=== PATIENT | female | born 1955 | race Caucasian/White ===

== ENCOUNTER 2020-02-02 10:15 | Outpatient (CLI) | payer BC, SELFPAY ==
--- NOTE | 2020-02-02 10:34 | FL_ITS ---
WS: [id number] FL barium swallow modifd [id number] REASON FOR EXAM: Oral dysphagia FLUOROSCOPY TIME: 4.8 minutes FINDINGS: Fluoroscopy was performed for speech pathology please see their workup for details. FL/FL barium swallow modifd [id number] IMPRESSION: Fluoroscopy was performed for speech pathology.
--- NOTE | 2020-02-02 10:34 | CT_ITS ---
WS: [id number] CT neck w con* [id number] REASON FOR EXAM: DYSPHAGIA transit for the past couple years. IV CONTRAST ADMINISTERED: Omnipaque 300 75 mm TOTAL EXAM DLP: 377.[address] scans at [facility] use at least one of these dose optimization techniques: automat ed exposure control; mA and/or kV adjustment per patient size (includes targeted exams where dose is matched to clinical indication); or iterative reconstruction. FINDINGS: Along the posterior C6 level on the right is a cystic mass which is smooth in outline seen in the subcutaneous area measured 1.5 x 1.44 cm. The paranasal sinuses are all normal. The parotid glands were normal. As well as the submandibular glands The tongue and nasopharynx appear to be normal. The vallecula and ventricles were normal. There is numerous artifacts from the teeth inhibiting of visualization. The carotid canals were normal as well as a jugular foramina. There was no airway obstructing lesion The subglottic area was normal as well as the supraglottic area. The cervical spine show no abnormalities. The precervical area show no infiltrating masses. The lymph nodes were normal bilaterally. The thyroid gland was normal in size with no masses. The trachea and pretracheal area were normal. . IMPRESSION: No definite lesions of the cervical region airways to produce dysplasia are noted. There is a prominent cystic mass along the posterior aspect C6 level on the right most likely a large sebaceous cyst.
[2020-02-02 11:47] LABS: Blood Urea Nitrogen 14 mg/dL (8-23)
[2020-02-02] MEDS: iohexol 300 mg/mL 100 mL Btl IV (12:06)
== END 2020-02-02 10:16 | disposition home or self-care (01) ==
PROVIDERS: PCP Family Medicine; Visit Provider Specialist
DX: R13.19 Other dysphagia (principal)
CPT/HCPCS: 36415; 70491; 74230; 82565; 84520; 92611

== ENCOUNTER 2021-04-26 10:45 | Outpatient (CLI) | payer OTHER, SELFPAY ==
--- NOTE | 2021-04-26 10:52 | MM_ITS ---
WS: [id number] BILATERAL DIGITAL SCREENING MAMMOGRAPHY WITH CAD CLINICAL INFORMATION: SCREENING HISTORY: Screening mammogram. No current complaints. COMPARISON: None. TECHNIQUE: Bilateral CC and MLO views. FINDINGS: Scattered fibroglandular densities bilaterally. Punctate and lucent centered calcifications. 1.5 cm a symmetric density upper right breast posterior depth. This is best seen on the MLO view. Recommend sp ot compression views and ultrasound for further evaluation. Unremarkable left breast. MM/[place] [id number] IMPRESSION: BI-RADS: 0-Incomplete: Need additional imaging evaluation FOLLOW UP: Need Additional Imaging RECOMMEND RIGHT DIAGNOSTIC MAMMOGRAPHY AND ULTRASOUND IN FURTHER EVALUATION.
--- NOTE | 2021-04-26 11:39 | CT_ITS ---
WS: [id number] LDCT LUNG CANCER SCREENING TECHNIQUE: Noncontrast CT of the chest with coronal and sagittal reformatted images. CLINICAL INFORMATION: NICOTINE DEPENDENCE,CIGARETTES COMPARISON: None. DLP: 55.38 mGy.cm DIvol: 1.[address] scans at [facility] use at least one of these dose optimization techniques: automat ed exposure control; mA and/or kV adjustment per patient size (includes targeted exams where dose is matched to clinical indication); or iterative reconstruction. FINDINGS: Moderate chronic emphysematous changes. Paraseptal emphysema. Cavitary spiculated lesion with bronchi ectasis in the superior segment left lower lobe measuring 2.0 x 0.9 x 1.0 CM. This abuts the pleura w ith associated pleural thickening. Additional small satellite lesion measuring 9.0 mm. Recommend furt her evaluation with PET/CT. Tiny 2.7 mm subpleural nodule left lower lobe. Additional noncalcified 2.8 mm nodule right upper lobe . Small subpleural nodule right lower lobe measuring 6 mm. Normal caliber thoracic aorta. Coronary calcification. No mediastinal or hilar lymphadenopathy. Adren al glands are normal. Left hepatic cyst measuring [address]/CT lung screening [id number] IMPRESSION: LUNG-RADS: 4B-Suspicious FOLLOW UP: PET/CT recommended
== END 2021-04-26 10:46 | disposition home or self-care (01) ==
PROVIDERS: PCP Nurse Practitioner Family; Visit Provider Nurse Practitioner Family
DX: Z12.31 Encounter for screening mammogram for malignant neoplasm of breast (principal); Z12.2 Encounter for screening for malignant neoplasm of respiratory organs; F17.210 Nicotine dependence, cigarettes, uncomplicated
CPT/HCPCS: 71271; 77067

== ENCOUNTER → 2021-06-10 15:36 | Outpatient (BNVA) | payer OTHER, SELFPAY | PROVIDERS: PCP Nurse Practitioner Family; Visit Provider Surgery | DX: Z20.822 Contact with and (suspected) exposure to COVID-19 (principal) | CPT/HCPCS: 87635 ==

== ENCOUNTER 2021-06-15 08:05 | Day surgery (SDC) | payer OTHER, SELFPAY ==
--- NOTE | 2021-06-15 08:22 | ANES.PREANE2 ---
Pre-Anesthetic Assessment Pre-Anesthetic Assessment: Height/Weight: Height 1.55 m Weight 41.73 kg Proposed Procedure: Operation Date: 06/15/21 09:30 Proposed Procedures p Colonoscopy 88163 z12.11(Not Applicable) - Edison Blood MD Was Beta Zay taken within 24 hours: N/A Was Clonidine taken within 24 hours: N/A Social: Social History: Tobacco and No alcohol Exam: Pre-Anes Outpt Exam: alert, oriented x 3 and regular rate & rhythm Airway: Submandibular: WNL Cervical ROM: WNL MP: 2 Pulmonary: Pulmonary: COPD Comments: Lung CA Neuropsych: Comments: Tremor Anesthetic Plan: ASA status: 3 Anesthesia: MAC Risk of > 500 ml blood loss (7ml/kg in children): No PFSH Anesthesia PFSH: Medical History Lung mass Family History Father CAD (coronary artery disease) Cancer Hyperlipidemia Mother Lung disease Grandmother Stroke Denies family history of Diabetes Dementia Psychiatric illness Chronic kidney disease (CKD) Suicide Hypertension Social History Alcohol intake: never Lives independently: Yes Household members: spouse Housing: House Marital status: Number of children: 3 Pets and animals: Yes Data Anesthesia Cardiac Studies: No Data to Display
[2021-06-15 08:32] VITALS: BP 123/63; PULSE 72; RESP 16; TEMP 36.4; O2SAT 95
[2021-06-15] MEDS: sodium chloride 0.9% 1,000 ML 30 ML IV (08:49)
[2021-06-15] MEDS: ondansetron 2 mg/ML SDV 2 mL 4 MG IVP (08:49)
--- NOTE | 2021-06-15 09:53 | W.PM.OPSUD ---
Surgery/Procedure H&P Update DATE OF PROCEDURE: June 15, 2021 DATE H&P PERFORMED: 06/09/21 H&P UPDATE INFORMATION: I have reviewed H&P completed within last 30 days, I have examined patient prior to procedure and No changes to prior documentation PREOP DIAGNOSIS: Abnormal PET/CT PRIMARY INDICATION FOR PROCEDURE: The same PLANNED PROCEDURE: Operation Date: 06/15/21 09:30 Proposed Procedures p Colonoscopy 28950 z12.11(Not Applicable) - Edison Blood MD
[2021-06-15 10:24] VITALS: BP 98/52; PULSE 80; RESP 16; TEMP 36.1; O2SAT 99
[2021-06-15 10:40] VITALS: BP 120/69; PULSE 81; RESP 16; O2SAT 99
--- NOTE | 2021-06-15 14:11 | ANE.PACU2 ---
Inpatient post-anesthesia follow up: Airway intact: Yes Vital signs: Temperature 97.0 F Pulse Rate 81 Respiratory Rate 16 Blood Pressure 120/69 Pulse Oximetry 99 Oxygen Delivery Me thod Room Air Oxygen Flow Rate 4 Fraction of Inspir ed Oxygen Hydration adequate: Yes Nausea and vomiting: No Pain level: 1 Mental status: Baseline
== END 2021-06-15 11:05 | disposition home or self-care (01) ==
PROVIDERS: PCP Nurse Practitioner Family; Visit Provider Surgery
PROC: 0DJD8ZZ Inspection of Lower Intestinal Tract, Via Natural or Artificial Opening Endoscopic (ICD-10-PCS; CPT 45378; principal; 2021-06-15 09:30)
DX: Z12.11 Encounter for screening for malignant neoplasm of colon (principal); D12.8 Benign neoplasm of rectum; J44.9 Chronic obstructive pulmonary disease, unspecified; Z80.1 Family history of malignant neoplasm of trachea, bronchus and lung; Z82.49 Family history of ischemic heart disease and other diseases of the circulatory system
CPT/HCPCS: 45385; 88305; 96361; 96374; J2405; J2704; J7030

== ENCOUNTER 2021-06-20 11:53 | Outpatient (CLI) | payer OTHER, SELFPAY ==
--- NOTE | 2021-06-20 11:59 | US_ITS ---
WS: [id number] RIGHT DIGITAL MAMMOGRAPHY WITH CAD CLINICAL INFORMATION: RT BREAST LUMP TECHNIQUE: 3 views of the right breast were obtained. FINDINGS: The right breast is composed of heterogeneous fibroglandular density tissue, which can limit the dete ction of small underlying mass lesions. Asymmetric density upper outer right breast posterior depth p artially compresses out on the spot compression views. Ultrasound is pending. ULTRASOUND BREAST RIGHT TECHNIQUE: Ultrasound right breast focused area of concern. CLINICAL INFORMATION: RT BREAST LUMP COMPARISON: None. FINDINGS: Ultrasound right breast at the 9 to 11:00 position. Dense heterogeneous echogenic band of soft tissue in the area of concern. This measures approximately 2.9 x 2.3 x 0.6 cm. This likely represents lipom a, fibroadenolipoma or dense parenchymal tissue. This is probably benign and recommend 6 month follow -up to confirm stability. US/US breast RT limited* [id number] IMPRESSION: BI-RADS: 3-Probably Benign FOLLOW UP: 6 Month Follow-up RECOMMEND 6 MONTH FOLLOW-UP RIGHT DIAGNOSTIC MAMMOGRAPHY AND ULTRASOUND.
== END 2021-06-20 11:54 | disposition home or self-care (01) ==
LOC: RADSHAW 11:56
PROVIDERS: PCP Nurse Practitioner Family; Visit Provider Nurse Practitioner Family
DX: N63.15 Unspecified lump in the right breast, overlapping quadrants (principal)
CPT/HCPCS: 76642; 77065

== ENCOUNTER → 2021-07-13 12:09 | Outpatient (BNVA) | payer OTHER, MEDICARE, SELFPAY | PROVIDERS: PCP Nurse Practitioner Family; Visit Provider Thoracic Surgery (Cardiothoracic Vascular Surgery) | DX: R91.8 Other nonspecific abnormal finding of lung field (principal) | CPT/HCPCS: 87635 ==

== ENCOUNTER 2021-07-19 09:08 | Outpatient (CLI) | payer MEDICARE, SELFPAY ==
--- NOTE | 2021-07-19 10:58 | PFTS_ITS ---
Date of Study:07/19/21 Date of Dictation: MECHANICS: Forced vital capacity (FVC) is normal. Forced expiratory volume in one second (FEV1) is reduced. FEV1/FVC is reduced. FLOW VOLUME LOOP: Reduced flow at all lung volumes with scooping. LUNG VOLUMES: Total lung capacity (TLC) is normal. Residual volume (RV) is increased. DIFFUSING CAPACITY FOR CARBON MONOXIDE: Normal. INTERPRETATION: The pulmonary function tests are consistent with moderate airflow obstruction. There is no significant postbronchodilator response. Lung volumes are consistent with air trapping. Gas exchange (DLCO) is normal. MTDD
== END 2021-07-19 09:09 | disposition home or self-care (01) ==
LOC: RT 09:10
PROVIDERS: PCP Nurse Practitioner Family; Visit Provider Thoracic Surgery (Cardiothoracic Vascular Surgery)
DX: R91.8 Other nonspecific abnormal finding of lung field (principal); F17.210 Nicotine dependence, cigarettes, uncomplicated
CPT/HCPCS: 94060; 94726; 94729; J7611

== ENCOUNTER → 2021-08-31 08:44 | Outpatient (BNVA) | payer MEDICARE, SELFPAY | PROVIDERS: PCP Nurse Practitioner Family; Visit Provider Thoracic Surgery (Cardiothoracic Vascular Surgery) | DX: Z20.822 Contact with and (suspected) exposure to COVID-19 (principal); R91.8 Other nonspecific abnormal finding of lung field | CPT/HCPCS: 87635 ==

== ENCOUNTER 2021-09-05 14:00 | Inpatient (IN) | payer MEDICARE, SELFPAY ==
[2021-08-31 09:52] VITALS: BMI 16.9
[2021-08-31 10:35] LABS: Add Urine Microscopic? YES; Bilirubin Urine Neg (Negative); Blood Urine 2+ (Negative); Glucose Urine UA Norm (Normal); Ketones Urine Negative (Negative); Leukocyte Esterase Urine Negative (Negative); Nitrate Urine Negative (Negative); Protein Urine Neg (Negative); Urine Appearance Clear (CLEAR); Urine Color Yellow (Yellow); Urobilinogen Urine Norm (Negative); pH Urine 6 (5-7)
[2021-08-31 10:41] LABS: Add Urine Culture? No; Bacteria Urine 1+ /hpf; Mucus Urine 1+ /hpf; Squamous Epithelial Cell Urine 0-4 /hpf (0-5)
--- NOTE | 2021-08-31 10:49 | ECG_ITS ---
[facility] Test Date: 2021-08-31 Pat Name: Lara Davenport Department: Room: Gender: Female Vp [employer]: : 1955 Requested By: George Romero Order Number: [id number] Larry MD: Lio Coleman M.D. Measurements Intervals Otto Rate: 87 P: 84 CO: 138 QRS: 85 QRSD: 94 T: 76 QT: 356 QTc: 428 Interpretive Statements SINUS RHYTHM MODERATE ST DEPRESSION [0.05+ mV ST DEPRESSION] No previous ECG available for comparison Electronically Signed On 08-31-2021 23:54:06 COMPUTER SYSTEMS AUDITOR by Lio Coleman M.D. [id number]
--- NOTE | 2021-08-31 10:51 | P.ANESASSM_ITS ---
Pre-Anesthetic Assessment Pre-Anesthetic Assessment: Height/Weight: Height 1.55 m Weight 40.823 kg Preop Diagnosis: Left lower lobe lung mass Proposed Procedure: Operation Date: 09/05/21 09:50 Proposed Procedures p Segmentectomy(Left) - Fredy Borrero MD Was Beta Zay taken within 24 hours: N/A Was Clonidine taken within 24 hours: N/A Social: Social History: Tobacco and No alcohol Exam: Pre-Anes Outpt Exam: alert, oriented x 3 and regular rate & rhythm Airway: Submandibular: WNL Cervical ROM: WNL MP: 2 Dentition: Chipped Additional comments: Poor dentition Pulmonary: Pulmonary: COPD Comments: Lung mass The pulmonary function tests are consistent with moderate airflow obstruction. There is no significant postbronchodilator response. Lung volumes are consistent with air trapping. Gas exchange (DLCO) is normal. Neuropsych: Comments: essential tremor Anesthetic Plan: ASA status: 3 Anesthesia: General Other: Discussed thoracic epidural, a.line and transfusion Risk of > 500 ml blood loss (7ml/kg in children): Yes, adequate IV access and fluids planned PFSH Anesthesia PFSH: Medical History Colon polyps Lung mass Family History Father CAD (coronary artery disease) Cancer Hyperlipidemia Mother Lung disease Grandmother Stroke Denies family history of Diabetes Dementia Psychiatric illness Chronic kidney disease (CKD) Suicide Hypertension Social History Alcohol intake: never Lives independently: Yes Household members: spouse Housing: House Marital status: Number of children: 3 Pets and animals: Yes Data Anesthesia Other Labs: Laboratory Results - last 48 hr 08/31/21 10:04 Urine Color Yellow Urine Appearance Clear Urine pH 6 Ur Specific [place] 1.020 Urine Protein Neg Urine Glucose (UA) Norm Urine Ketones Negative Urine Blood 2+ H Urine Nitrate Negative Urine Bilirubin Neg Urine Urobilinogen Norm Ur Leukocyte Esterase Negative Urine RBC 5-10 H Urine WBC None Ur Squamous Epith Cells 0-4 H Amorphous Sediment Not Reportable Urine Bacteria 1+ H Urine Mucus 1+ Cardiac Studies: No Data to Display
[2021-08-31 11:19] LABS: Basophils # 0.1 10^3/uL (0.0-0.1); Basophils % 0.9 %; Eosinophils # 0.1 10^3/uL (0.0-0.8); Eosinophils % 1.1 %; Hematocrit 44.5 % (37.0-47.0); Hemoglobin 14.8 g/dL (11.5-15.3); Lymphocytes # 1.4 10^3/uL (0.8-4.8); Lymphocytes % 19.2 %; Mean Corpuscular HGB Conc 33.3 g/dL (30.0-36.0); Mean Corpuscular Hemoglobin 29.6 pg (28.0-34.0); Mean Platelet Volume 9.6 fL (7.4-10.4); Monocytes # 0.8 10^3/uL (0.2-0.9); Monocytes % 10.1 %; Neutrophils # 5.09 10^3/uL (1.8-7.7); Neutrophils % 68.4 %; Nucleated Red Blood Cells % 0 %; Platelet Count 326 10^3/cmm (130-400); Red Cell Distribution Width 12.2 % (12.1-15.1); White Blood Count 7.4 10^3/uL (4.0-10.0)
[2021-08-31 11:49] LABS: Anion Gap 13.4 (5-19); Blood Urea Nitrogen 12 mg/dL (8-23); Calcium 9.7 mg/dL (8.5-10.5); Carbon Dioxide 29 mmol/L (22-29); Chloride 101 mmol/L (98-107); Glomerular Filtration Rate 123.8 mL/min (90-130); Glucose 89 mg/dL (65-115); Osmolality Calculated 287 mOsm/kg (285-295); Potassium 4.4 mmol/L (3.5-5.1); Sodium 139 mmol/L (136-145)
[2021-09-05 08:28] VITALS: BP 158/84; PULSE 89; RESP 18; TEMP 36.6; O2SAT 92
[2021-09-05] MEDS: sodium chloride 0.9% 1,000 ML 30 ML IV (09:13)
--- NOTE | 2021-09-05 09:17 | P.ANESUD_ITS ---
Pre-Anesthetic Update Pre-Anesthetic Assessment: Date of Surgery/Procedure: 09/05/21 Preop [place] gnosis: Left lower lobe lung mass Proposed Procedure: Operation Date: 09/05/21 09:50 Proposed Procedures p Segmentectomy, Thoracoscopy/Thoracotomy, Lobectomy(Left) - Fredy Borrero MD Any changes to Pre-Anesthetic Assessment?: No Last Intake: Intake Last Liquid Date 09/04/21 Last Liquid Time 19:00 Last Solid Date 09/04/21 Last Solid Time 18:00 Vitals: Temperature 98 F 09/05/21 08:28 Temperature Source Temporal Artery S can 09/05/21 08:28 Pulse Rate 89 09/05/21 08:28 Pulse Rhythm 09/05/21 08:28 Pulse Strength 3+ Normal 09/05/21 08:28 Respiratory Rate 18 09/05/21 08:28 Blood Pressure 158/84 09/05/21 08:28 Blood Pressure Ashley n 108 09/05/21 08:28 Pulse Oximetry 92 09/05/21 08:28 Oxygen Delivery Me thod 09/05/21 08:28 Exam: Pre-Anes Outpt Exam: alert, oriented x 3, clear to auscultation bilaterally and regular rate & rhythm Cardiac Studies: No Data to Display
[2021-09-05] MEDS: midazolam 1 mg/mL INJ 2 mL 2 MG IVP (09:32)
--- NOTE | 2021-09-05 10:02 | P.HP_ITS ---
Providers/Chief Complaint Admitting Physician: Dr. Borrero Primary Care Provider: Solange Yates MACHINE CAPTAIN-C Chief Complaint: Left lower lobe lung lesion; PET positive History of Present Illness Lara Davenport is a 66 year old female whom I saw originally in consultation on June 03 at referral for a positive finding on lung cancer screening CT scan of April 26. At that time she was found to have a 2 cm cavitary lesion of the superior segment left lower lobe with some satellite lesions of small dimensions and solid. PET scan was performed out of [facility] on May 16. This revealed increased activity in the concerning lesion as well as in the presacral region. She was [place] referred to Dr. Blood and underwent colonoscopy on June 15. Hyperplastic polyp was identified though no other concerning lesions. PFTs have been completed and revealed decreased measu rements and FEV of 1.14 and FVC of 2.23. Her DLCO was 76% of predicted. I reviewed these findings with Dr. Yuen, who felt that considering the radiographic findings for potential malignancy given her long history of tobacco use, that we should proceed with attempt at resective therapy. I discussed this very frankly with Ms. Davenport and her whom are both in agreement. Review of Systems Const: Reports: fatigue; Denies: fever(s), chills, change in appetite, change in weight or night sweats Eyes: Denies: change in vision or blurry vision ENMT: Denies: odynophagia or hoarseness Card: Reports: dyspnea on exertion; Denies: chest pain, palpitations, irregular heart rhythm or edema Resp: Reports: dyspnea and productive cough; Denies: pain on inspiration or hemoptysis GI: Denies: abdominal pain, nausea, vomiting, dysphagia, heartburn or change in bowel habits : Denies: dysuria, urinary frequency, urinary urgency or urinary hesitancy Musc: Denies: extremity pain or extremity swelling Skin/Breast: Denies: rash Neuro: Denies: headache(s), numbness in extremities, weakness in extremities or sensory changes Psych: Denies: anxiety, depression or change in appetite Endo: Denies: polyuria, polydipsia or cold intolerance Maury/Lymph: Denies: easy bruising, easy bleeding, petechiae or enlarged lymph nodes Medications/Allergies Home Medications Medication Instructions Recorded Confirmed Last Taken Type albuterol sulfate 90 mcg/actuation 2 inh INHALATION Q6H PRN 06/03/21 08/31/21 Unknown History breath activated powder inhaler cetirizine 10 mg tablet 10 mg PO DAILY PRN 06/03/21 09/05/21 09/04/21 History fluticasone fur. 100 mcg-umeclid 1 inh INHALATION DAILY 06/03/21 09/05/21 09/05/21 History 62.5 mcg-vilant 25 mcg inhalat.powder Allergies Allergy/AdvReac Type Severity Reaction Status Date / Time penicillin V [From Pen-Vee K] Allergy Severe swelling Verified 06/27/21 15:28 pseudoephedrine Allergy Mild tongue Verified 06/27/21 15:28 [From Sudafed] swelling PFSH Acute PFSH: Medical History Colon polyps Lung mass Family History Father CAD (coronary artery disease) Cancer Hyperlipidemia Mother Lung disease Grandmother Stroke Denies family history of Diabetes Dementia Psychiatric illness Chronic kidney disease (CKD) Suicide Hypertension Social History Alcohol intake: never Lives independently: Yes Household members: spouse Housing: House Marital status: Number of children: 3 Pets and animals: Yes Vitals/I&O/Wt Last Vital Signs Temp 98 F 09/05/21 08:28 Pulse 89 09/05/21 08:28 Resp 18 09/05/21 08:28 BP 158/84 09/05/21 08:28 Pulse Ox 92 09/05/21 08:28 Physical Exam Const: COMMON NORMALS: patient oriented x3 and alert GENERAL APPEARANCE: cooperative NUTRITIONAL APPEARANCE: thin and underweight ORIENTATION/CONSCIOUSNESS: Yes oriented to person, Yes oriented to place and Yes oriented to time HENMT: COMMON NORMALS: normocephalic HEAD & SCALP: normocephalic; no cranial bruits Neck/C-Spine: COMMON NORMALS: full ROM, supple, no JVD and No carotid bruits GENERAL: Yes trachea midline CERVICAL SPINE: Yes cervical ROM normal Chest: COMMONS NORMALS: normal inspection of the chest and normal palpation of entire chest wall Resp: COMMON NORMALS: normal respiratory effort, No use of accessory muscles, clear to auscultation bilaterally and percussion normal EFFORT & INSPECTION: Yes able to speak in complete sentences, Yes symmetric chest movement, No tracheal deviation and Yes prolonged expiratory phase AUSCULTATION: clear to auscultation bilaterally PERCUSSION: percussion normal Cardio: COMMON NORMALS: no JVD, regular rate, regular rhythm, S1 normal heart sound present, S2 normal heart sound present, No gallops present (Cardio), No murmurs present (Cardio), No rub (Cardio) and Peripheral pulses 2+ throughout JUGULAR VENOUS DISTENTION: no JVD RATE: regular rate RHYTHM: regular rhythm HEART SOUNDS: S1 normal heart sound present and S2 normal heart sound present PERIPHERAL PULSES: radial pulses present positive bilateral 2+ Extremity: COMMON NORMALS: no clubbing, cyanosis or edema Neuro: COMMON NORMALS: patient oriented x3, no focal motor deficits and no sensory deficits noted SENSORIUM/ORIENTATION: Yes alert, Yes oriented to person, Yes oriented to place and Yes oriented to time GAIT: Yes Normal gait present Data : 08/31/21 10:20 08/31/21 10:20 A&P Assessment and plan (1) Lung mass: Concerning left lower lobe lung mass with increased activity on PET scan. I again had a sandra and detailed discussion with Ms. Davenport and her concerning the recommendation to consider attempt at surgical extirpation. [facility] protocol for surgery and postoperative care was carefully reviewed. Details and risks of the procedure were carefully and frankly discussed. Risks reviewed include the possibility of , stroke, heart attack, major bleeding, infection, pneumonia, pneumothorax, prolonged air leak requiring prolonged need for chest tubes, organ failure, failure to benefit, prolonged hospital stay, pain after the procedure, need for further procedures, inability to complete the procedure, and possible need for long-term followup. All questions were answered. Appropriate consents have been provided for review and signature. I did discuss her and her that I would be consulting our pulmonary co lleagues to assist with postoperative evaluations and management given her PFT findings preoperatively. Status: Acute Attestations Medical Necessity Statement*: PET positive, cavitary, left lower lobe lung mass. Time Spent in Patient Care: 16 - 35 minutes Coding Level of Care Code Acute Wholesaler for [facility] Diagnoses Lung mass R91.8
[2021-09-05] MEDS: vancomycin 1,500 MG/300 ML PIGGYBACK 200 MG IV (10:29)
[2021-09-05] MEDS: vancomycin 1,000 MG SDV 2000 MG IRRIGATION (11:45)
--- NOTE | 2021-09-05 14:03 | ANES.PROC ---
Anesthesia Procedures Procedure/Date: 09/05/21 Epidural: Time Out Performed: Yes Consents Signed: Procedure Consent Consent: from patient, risks and benefits reviewed and patient agrees to proceed Thoracic Level: other (T5-T6) Epidural position: sitting Epidural procedure: sterile prep of area, 1% lidocaine to numb the area, 18 g needle, neg for paresthesia, test dose given, 1.5% xylocaine 1:200k epi, placed PCEA, no systemic response, sterile dressing applied and 0.2% Ropiavacaine @ mls/hr (3) Additional Comments: After time out and placement of full monitors and 2 LPM NC O2 patient sedated with 1.5 mg midazolam given incrementally by pre op RN. Patient sat up, prepped and draped in usual fashion. 1% lidocaine wheel local infiltration at T5-T6 interspace. Tuohy introduced with stylet unable to find space. Additional anesthetic infiltrated. Touhy introduced with stylet, ligament engaged, advanced with EDILMA technique with sterile saline until loss at 5 cm. Catheter inserted to skin at 12 cm. Negative aspiration, negative test dose. Good block, tolerated well.
--- NOTE | 2021-09-05 14:29 | ANE.PACU2 ---
Inpatient post-anesthesia follow up: Airway intact: Yes Vital signs: Temperature 98 F Pulse Rate 89 Respiratory Rate 18 Blood Pressure 158/84 Pulse Oximetry 92 Oxygen Delivery Me thod Room Air Oxygen Flow Rate Fraction of Inspir ed Oxygen Hydration adequate: Yes Nausea and vomiting: No Pain level: 3 Mental status: Baseline
[2021-09-05 15:10] VITALS: PULSE 76; RESP 18; O2SAT 97
[2021-09-05 15:11] VITALS: BMI 16.9
[2021-09-05 15:21] VITALS: PULSE 74
[2021-09-05 15:27] VITALS: O2SAT 97
--- NOTE | 2021-09-05 15:34 | PM.OP ---
Operative Report Date of procedure: September 05, 2021 Pre-op Diagnosis: Left lower lobe lung mass Post-op diagnosis: same Procedure Done: Left lower lobe superior segmentectomy with wedge resection of posterior aspect of the apical posterior segment of the left upper lobe. Implants: None Specimens removed/disposition: Superior segment left lower lobe. Wedge resection posterior aspect of the left upper lobe apical posterior segment Lymph node sampling from the mediastinum, AP window, and inferior pulmonary ligament Anesthesia: General and Epidural Complications: None Condition: stable Disposition: ICU Brief History: 66-year-old female referred to our service originally for findings of a 2 cm superior segment left lower lobe lesion identified on routine CT lung cancer screening program on April 26. Long history of tobacco use. PET scan did reveal increased activity in this region as well as the posterior aspect of the left upper lobe. Surgical resection was recommended. Details the risk of the procedure were carefully and frankly discussed. Proper consents have been reviewed and signed. Procedure: Ms. Davenport had an epidural catheter placed by our anesthesia colleagues prior to arrival to the OR suite. She was carefully positioned and underwent general anesthesia with placement of a double-lumen endobronchial tube and confirmation of position. Right radial A-line was placed. Appropriate IVs were confirmed. She was then carefully placed in the right lateral decubitus position over axillary roll and protective padding. Her entire chest was sterilely prepped and draped. After appropriate timeout, a muscle-sparing posterior lateral thoracotomy incision was made and carried down to the chest wall with the field intercostal space was entered with a left lung collapse. Initially, there was clearly substantial adhesions to the posterior aspect of the left lower lobe and left upper lobe. These were taken down sharply utilizing cautery as well as Metzenbaum scissors. Once released, the chest wall was carefully the entire hemothorax was explored. There was a palpable lesion in the superior segment of the left lower lobe, consistent with PET scan findings. There were adhesions and thickening to the posterior aspect of the left upper lobe apical posterior segment which was near proximity to the left lower lobe lesion. There was moderate bullous disease and generalized hyperinflation of the lung. Given the findings of her PFTs with marginal reserve, we elected to proceed with resection in a matter to attempt to preserve as much function lung parenchyma. Therefore, after careful isolation elected to proceed with a left lower lobe superior segmentectomy utilizing endoscopic stapler over Jayshree-Guard strips. This was done in conjunction with anatomic planes and they require crossing the fissure to continue with wedge resection of the posterior aspect of the left upper lobe apical posterior segment which also included dense adhesions which have been taken down. 2 separate specimens were separately recovered, each being appropriately labeled and sent to pathology for permanent analysis. Staple closure lines appear to be intact without bleeding. We next continued with lymph node sampling, which included the mediastinum beneath the left phrenic nerve, the left AP window, and a #9 lymph node in the inferior pulmonary ligament. Lymphoid tissues appear to be grossly unremarkable without substantial enlargement. Once completed, a Gerardo drain was placed and extended posteriorly and then to the apex. The lung was reinflated with modest air leak at the staple lines. Wound was irrigated with antibiotic solution. Retractors and sponges were removed. Count was correct. Chest wall was reapproximated #1 Vicryl suture. Fascia was closed in 2 layers of 0 Vicryl suture. Subcutaneous layer was closed with 2-0 Vicryl suture. And skin was reapproximated in a septic or manner with 3-0 Monocryl suture. Sterile dressings were applied. Chest tube was placed to Pleur-evac suction. There was a modest air leak noted. Patient was Returned to the supine position where she was awakened from general anesthesia extubated. She was then transferred to the ICU bed and then transferred to the ICU. I did vocational rehabilitation counselor with her at completion of the procedure. Post procedure chest x-ray is currently pending.
--- NOTE | 2021-09-05 15:43 | PC.NURSE ---
To Unit Pt brought to unit by OR staff via bed. Pt is alert and oriented. Chest tube to left side is draining with 60ml output. CT is to low wall suction with gentle bubbles that were verified by Dr Bowen. Pt has epidural in place and given dose button for [employer] and verbalized understanding on how it works. Mathis in place and draining. Pt has been oriented to room. Rahul is at bedside. Art line to right radial was not flushing and was d/c by verbal order from Dr Bowen at bedside. Art line pulled and pressure held per protocol.
[2021-09-05] MEDS: lactated ringers 1,000 ML 100 ML IV (16:04)
--- NOTE | 2021-09-05 17:00 | XR_ITS ---
WS: [id number] Exam: XR chest 1V portable [id number] Date/Time of Exam: 09/05/2021 4:09 PM Reason For Exam: Chest tube No priors. Small left upper lobe pneumothorax is noted estimated at about 10%. A left-sided thoracostomy tube en ds in the superior medial left pleural cavity. Surgical sutures seen in the left upper lobe. Subcutan eous emphysema seen along the left chest and neck. The right lung is fully expanded and clear. Normal cardiomediastinal silhouette. No pleural effusions. Monitoring leads superimpose the chest. XR/XR chest 1V portable [id number] IMPRESSION: 1. About 10% pneumothorax of the upper lobe of the left lung. 2. Left-sided thoracostomy tube in place as noted. Subcutaneous emphysema along the left chest, left shoulder and left neck region.
[2021-09-05 19:58] VITALS: PULSE 77; RESP 18; O2SAT 96
[2021-09-06] VITALS (11 sets, daily range): BP systolic 88–101; BP diastolic 51–68; PULSE 69–86; RESP 16–30; TEMP 37.1; O2SAT 92–96
[2021-09-06] MEDS: lactated ringers 1,000 ML 100 ML IV (02:12)
[2021-09-06] MEDS: morphine 4 mg/mL SDV 1 mL 2 MG IVP ×4 (03:55→20:26)
[2021-09-06 04:57] LABS: Basophils % 0.3 %; Hematocrit 35.2 % (37.0-47.0); Hemoglobin 11.6 g/dL (11.5-15.3); Lymphocytes # 1.3 10^3/uL (0.8-4.8); Lymphocytes % 8.9 %; Mean Corpuscular Hemoglobin 29.8 pg (28.0-34.0); Mean Corpuscular Volume 90.5 fl (81-99); Mean Platelet Volume 9.9 fL (7.4-10.4); Monocytes # 1.8 10^3/uL (0.2-0.9); Monocytes % 12.5 %; Neutrophils # 11.42 10^3/uL (1.8-7.7); Nucleated Red Blood Cells % 0 %; Platelet Count 249 10^3/cmm (130-400); Red Blood Count 3.89 10^6/uL (4.1-5.3); Red Cell Distribution Width 12.3 % (12.1-15.1); White Blood Count 14.7 10^3/uL (4.0-10.0)
[2021-09-06 05:19] LABS: Blood Urea Nitrogen 10 mg/dL (8-23); Calcium 7.7 mg/dL (8.5-10.5); Carbon Dioxide 22 mmol/L (22-29); Chloride 102 mmol/L (98-107); Glomerular Filtration Rate 160.2 mL/min (90-130); Glucose 106 mg/dL (65-115); Osmolality Calculated 279 mOsm/kg (285-295); Sodium 135 mmol/L (136-145)
--- NOTE | 2021-09-06 05:58 | PC.NURSE ---
Patient done well overnight. Did have intermittent complaints of breakthrough severe pain, treated with meds on NOV. Output was 200mL out of chest tube, serosanguineous drainage. Continue care.
--- NOTE | 2021-09-06 06:00 | XRR_ITS ---
PROCEDURE INFORMATION: Exam: XR Chest Exam date and time: 09/06/2021 6:00 AM Age: 66 years old Clinical indication: Shortness of breath; Additional info: Pod#! S/P segmentectomy TECHNIQUE: Imaging protocol: XR of the chest. Views: 1 view. COMPARISON: CR XR chest 1V portable [id number] 09/05/2021 5:03 PM The prior report is not available for correlation at the time of interpretation. FINDINGS: Lungs: COPD, interstitial prominence, and localized left upper lobe airspace disease adjacent to surgical sutures. Pleural spaces: Small residual left apical pneumothorax with stable positioning of left thoracostomy tube. Heart/Mediastinum: No cardiomegaly. Bones/joints: Osteopenia. Soft tissues: Prominent left-sided subcutaneous emphysema. When correlating with the previous study, no significant interval changes are present. XR/XR chest 1V portable [id number] IMPRESSION: 1. COPD, interstitial prominence, and localized left upper lobe airspace disease adjacent to surgical sutures. 2. Small residual left apical pneumothorax with stable positioning of left thoracostomy tube.
--- NOTE | 2021-09-06 06:13 | P.PN_ITS ---
Subjective Subjective: Interval history: Postop day #1 status post segmentectomy. Patient rested reasonably well last night with only a couple of pain episodes. Chest tube output 270 cc since surgery. Still a modest air leak on suction. Chest x-ray reveals clear lung ely without substantial fluid collection. There is perhaps a slight increase in subcutaneous emphysema on the left chest wall. Left pleural drain appears to be in good position. Good, effective cough. Still needs work with incentive spirometry. Vitals/I&O/Wt Last Vital Signs Temp 98 F 09/05/21 08:28 Pulse 77 09/05/21 19:58 Resp 18 09/05/21 19:58 BP 158/84 09/05/21 08:28 Pulse Ox 96 09/05/21 19:58 09/05/21 09/05/21 09/06/21 14:59 22:59 06:59 Intake Total 300 / 300 470 / 770 1120 / 1890 Output Total 370 / 370 700 / 1070 Balance 300 / 300 100 / 400 420 / 820 Weight last 48 hrs Weight 90 lb Physical Exam Chest: OTHER: Surgical dressing is in place. Resp: COMMON NORMALS: normal respiratory effort, No retractions and No use of accessory muscles EFFORT & INSPECTION: Yes able to speak in complete sentences and Yes symmetric chest movement AUSCULTATION: crackles Laterality: left (Base) OTHER: Left basilar crackles Cardio: COMMON NORMALS: regular rate, regular rhythm, S1 normal heart sound present, No murmurs present (Cardio) and No rub (Cardio) RATE: regular rate RHYTHM: regular rhythm HEART SOUNDS: S1 normal heart sound present Extremity: COMMON NORMALS: no clubbing, cyanosis or edema Urinary Catheter Management^: Mathis: Cath Placed During This Visit: yes Reason for Continuing Indwelling Catheter: Accurate Measurement of Urinary Output in Critically Ill Patients Urinary Catheter Date of Insertion: 09/05/21 Urinary Catheter Time of Insertion: 11:00 Data : 09/06/21 04:10 09/06/21 04:10 A&P Assessment and plan (1) Lung mass: POD #1 status post left lower lobe superior segmentectomy. Pathology still pending. Moderate air leak continues. Plan: Chest tube to waterseal. Saline lock IV. DC Mathis catheter. Increase activity. Chest x-ray in a.m. I will reassess at noon determine if can be transferred to [facility]. Status: Acute Attestations Medical Necessity Statement*: Status post lung resection for PET positive left lower lobe lung mass Time Spent in Patient Care: 16 - 35 minutes Coding Level of Care Code Acute Implementation Coordinator for Joselyn Johnson Diagnoses Lung mass R91.8
--- NOTE | 2021-09-06 06:13 | PC.NURSE ---
Dr. Borrero rounding this morning received orders to turn chest tube to waterseal only. Remove juarez catheter.
--- NOTE | 2021-09-06 06:16 | PC.NURSE ---
IV fluids stopped per Dr. Bowen.
[2021-09-06] MEDS: ketorolac 30 mg/mL INJ IVP ×2 (07:35→16:38)
[2021-09-06] MEDS: pantoprazole DR 40 mg Tablet PO (07:36)
--- NOTE | 2021-09-06 08:25 | PM.MISC ---
Miscellaneous Note Purpose of Documentation: Thoracic epidural rounding note Note: Thoracic epidural POD 1. Patient doing well, some breakthrough pain on 0.2% ropivacaine running at 3 ml/hour. Started on PO meds this morning. Pain score 4. Using PCEA. Was able to rest during the night, but awoke frequently. Site dry, intact, without swelling or induration. Plan: Continue epidural . Low dose molecular weight heparin 5000 BID okay from epidural perspective. If used hold LMWH 6 hours before removal of epidural catheter.
--- NOTE | 2021-09-06 11:03 | PC.NURSE ---
Fluids not administered from MAR due to provider preference.
[2021-09-06] MEDS: vancomycin 750 MG in sodium chloride 0.9% 250 ML 250 MG IV (13:58)
--- NOTE | 2021-09-06 15:29 | PM.MISC ---
Miscellaneous Note Purpose of Documentation: Ms. Davenport is doing well this afternoon. Her surgical discomfort appears to be under good control. She is quite engaging and has a good and effective cough. She maintains an intermittent air leak and she is on waterseal. Low pleural drainage. Mathis catheter was removed earlier due to discomfort. We will plan to transfer to [facility] today and continue postoperative care. Subcutaneous emphysema along the left lateral chest wall noted on chest x-ray today is only minimally palpable.
--- NOTE | 2021-09-06 18:55 | PC.NURSE ---
Shift Note: Patient ambulates [place] [facility] [place]. Chest tube drainage amount 350ml this shift. Primary complaint is of pain in left shoulder and back. Epidural site clean, dry, intact, pump functioning. PRN pain medications effective in resolving most of patients pain. Orders for transfer to another floor pending room availability.
[2021-09-06] MEDS: HYDROcodone-acetaminophen 7.5-325 mg Tablet 1 TAB PO (20:26)
--- NOTE | 2021-09-07 05:01 | PC.NURSE ---
Shift Summary: Patient rested some throughout the night, up to BSC 4 times. V/S all WNL. Some breakthrough pain reported and treated with PRN pain medication. Patient is now up in chair beside bed. Continue care.
--- NOTE | 2021-09-07 06:00 | XR_ITS ---
WS: [id number] Exam: XR chest 1V portable [id number] Date/Time of Exam: 09/07/2021 5:38 AM Reason For Exam: POD #2 status post resection of left lung mass Comparison 09/06/2021. Left upper lobe pneumothorax has increased and now is estimated at about 15-20%. The right lung is c lear and fully expanded. Heart size remains normal. No pleural effusions. Subcutaneous emphysema juan g the left rib cage, left shoulder and left neck shows little change. Left-sided thoracostomy tube en ds in the upper medial left pleural cavity. The tip of tube ends in the region of the left upper lobe pneumothorax. Monitoring leads superimpose the chest. Bony structures intact as visualized. XR/XR chest 1V portable [id number] IMPRESSION: 1. Increasing pneumothorax of the left upper lobe estimated between 15 and 20%. No sign of tension pneumothorax or midline shift. 2. Left-sided appears to be in satisfactory location. Stable appearing left-navin ed subcutaneous emphysema.
[2021-09-07] MEDS: HYDROcodone-acetaminophen 7.5-325 mg Tablet 1 TAB PO ×3 (06:59→19:52)
[2021-09-07] MEDS: docusate sodium 100 mg Capsule PO (06:59)
[2021-09-07 07:21] VITALS: BP 100/63; PULSE 76; RESP 20; TEMP 36.8; O2SAT 93
--- NOTE | 2021-09-07 07:52 | PM.PN ---
Subjective Subjective: Interval history: POD #2 status post left lower lobe segmentectomy. Perhaps slight increase in subcutaneous emphysema by chest x-ray though the lung remains expanded. No spectrum fluid collection. Tube output 145 cc past 24 hours. There is no airleak with quiet respiration though there is an air leak with coughing or vigorous expiration. She remains on waterseal at this time. There is really not much palpable subcutaneous emphysema. Pulling only about 750 cc on incentive spirometry. She will need some aggressive pulmonary toilet today. Thoracotomy discomfort under good control. Vitals/I&O/Wt Last Vital Signs Temp 98.2 F 09/07/21 07:21 Pulse 76 09/07/21 07:21 Resp 20 H 09/07/21 07:21 BP 100/63 09/07/21 07:21 Pulse Ox 93 09/07/21 07:21 09/06/21 09/07/21 09/07/21 22:59 06:59 14:59 Intake Total 920 / 1780 120 / 1900 Output Total 200 / 300 145 / 445 Balance 720 / 1480 -25 / 1455 Weight last 48 hrs Weight 90 lb Physical Exam Chest: OTHER: Place. Chest tube in remains in position. Resp: COMMON NORMALS: normal respiratory effort, No retractions and No use of accessory muscles EFFORT & INSPECTION: Yes able to speak in complete sentences AUSCULTATION: crackles (Basilar crackles) Cardio: COMMON NORMALS: regular rate, regular rhythm, S1 normal heart sound present and No murmurs present (Cardio) RATE: regular rate RHYTHM: regular rhythm HEART SOUNDS: S1 normal heart sound present Extremity: COMMON NORMALS: no clubbing, cyanosis or edema Urinary Catheter Management^: Mathis: Cath Placed During This Visit: yes, but has since been removed by the nurse Reason for Continuing Indwelling Catheter: Accurate Measurement of Urinary Output in Critically Ill Patients Urinary Catheter Date of Insertion: 09/05/21 Urinary Catheter Time of Insertion: 11:00 Date Urinary Catheter Removed: 09/06/21 Time Urinary Catheter Discontinued: 03:00 Data : 09/06/21 04:10 09/06/21 04:10 A&P Assessment and plan (1) Lung mass: POD #2 status post left lower lobe segmentectomy Plan: Aggressive pulmonary toilet. Out of bed. Ambulate with assistance. Awaiting pathology report. Chest x-ray in a.m. Status: Acute Attestations Medical Necessity Statement*: Postop day #2 status post segmentectomy. 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
[2021-09-07] MEDS: pantoprazole DR 40 mg Tablet PO (09:02)
[2021-09-07 11:20] VITALS: BP 101/61; PULSE 71; RESP 17; TEMP 36.6; O2SAT 98
[2021-09-07] MEDS: ketorolac 30 mg/mL INJ IVP (12:35)
[2021-09-07] MEDS: vancomycin 750 MG in sodium chloride 0.9% 250 ML 250 MG IV (13:57)
[2021-09-07 22:17] VITALS: BP 123/67; PULSE 76; RESP 18; TEMP 36.6; O2SAT 95
[2021-09-08 00:12] VITALS: BP 139/70; PULSE 76; RESP 18; TEMP 36.6; O2SAT 94
[2021-09-08] MEDS: HYDROcodone-acetaminophen 7.5-325 mg Tablet 1 TAB PO ×3 (00:26→18:26)
[2021-09-08 03:06] VITALS: BP 112/59; PULSE 72; RESP 17; TEMP 36.5; O2SAT 95
--- NOTE | 2021-09-08 06:00 | XR_ITS ---
WS: [id number] Exam: XR chest 1V portable [id number] Date/Time of Exam: 09/08/2021 5:28 AM Reason For Exam: POD #3 status post segmentectomy Comparison 09/07/2021. Again noted is a pneumothorax of the left upper lobe estimated at about 20%. No change. Left chest tube is unchanged in location and ends in the upper medial left pleural cavity. S ubcutaneous emphysema along the left rib cage, left shoulder and left neck unchanged. The right lung is fully inflated and clear. Normal cardiomediastinal silhouette. No pleural effusions. Numerous surg ical sutures and clips at the left hilum. XR/XR chest 1V portable [id number] IMPRESSION: 1. About 20% pneumothorax of the upper lobe of the left lung unchanged. 2. Left-sided chest tube unchanged in location. Left-sided subcutaneous emphyse
[2021-09-08 08:00] VITALS: BP 142/66; PULSE 69; RESP 18; TEMP 36.4; O2SAT 94
[2021-09-08] MEDS: pantoprazole DR 40 mg Tablet PO (08:13)
[2021-09-08] MEDS: ketorolac 30 mg/mL INJ IVP ×2 (08:16→20:56)
--- NOTE | 2021-09-08 08:45 | PM.MISC ---
Miscellaneous Note Purpose of Documentation: Thoracic epidural rounds Note: Patient sitting up in bed eating. Does have some pain to palpation in area of subq emphysema in back. Incision site no pain to palpation. Epidural site non indurated, no swelling, some tenderness to palpation. Afebrile. I do think the epidural is working well, running at 3ml/hour of ropivacaine 0.2%. Will plan to leave in one more day. Plan: Continue epidural . Low dose molecular weight heparin 5000 BID okay from epidural perspective. If used hold heparin 6 hours before removal of epidural catheter.
--- NOTE | 2021-09-08 11:08 | PC.NURSE ---
Pt states she is not in pain except at the epidural catheter insertion site. She says she is changing positions frequently to stay off of the insertion site.
[2021-09-08 12:00] VITALS: BP 115/59; PULSE 79; RESP 18; TEMP 36.7; O2SAT 95
[2021-09-08] MEDS: vancomycin 750 MG in sodium chloride 0.9% 250 ML 250 MG IV (12:50)
--- NOTE | 2021-09-08 12:58 | PM.PN ---
Subjective Subjective: Interval history: Postop day #3 status post left thoracotomy with segmentectomy and wedge resection. 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 Further studies are pending. I have spoken personally with Dr. Sierra. Patient has family at bedside. She is in very good spirits. Minimal chest wall discomfort. Low chest tube output. She only has an air leak now with aggressive cough and with normal respiration and and phonation, there is no air leak. Chest x-ray reveals slowly resolving subcutaneous emphysema. No substantial fluid collections. Left lung is inflated well. She can output 1000 cc with incentive spirometry which is a 25% increase from yesterday. I reviewed pathology report with Ms. Davenport and her family. Vitals/I&O/Wt Last Vital Signs Temp 97.5 F L 09/08/21 08:00 Pulse 69 09/08/21 08:00 Resp 18 09/08/21 08:00 BP 142/66 09/08/21 08:00 Pulse Ox 94 09/08/21 08:00 09/07/21 09/08/21 09/08/21 22:59 06:59 14:59 Intake Total 1250 / 2310 120 / 2430 240 / 240 Output Total 90 / 92 85 / 177 Balance 1160 / 2218 35 / 2253 240 / 240 Physical Exam Chest: COMMONS NORMALS: normal inspection of the chest and normal palpation of entire chest wall OTHER: Dressings are in position. Chest tube is in good position. Resp: COMMON NORMALS: normal respiratory effort, No retractions, No use of accessory muscles, clear to auscultation bilaterally and percussion normal EFFORT & INSPECTION: Yes able to speak in complete sentences and Yes symmetric chest movement AUSCULTATION: clear to auscultation bilaterally PERCUSSION: percussion normal Cardio: COMMON NORMALS: regular rate, regular rhythm, S1 normal heart sound present, No gallops present (Cardio) and No murmurs present (Cardio) RATE: regular rate RHYTHM: regular rhythm HEART SOUNDS: S1 normal heart sound present Extremity: COMMON NORMALS: no clubbing, cyanosis or edema Urinary Catheter Management^: Mathis: Cath Placed During This Visit: yes, but has since been removed by the nurse Reason for Continuing Indwelling Catheter: Accurate Measurement of Urinary Output in Critically Ill Patients Urinary Catheter Date of Insertion: 09/05/21 Urinary Catheter Time of Insertion: 11:00 Date Urinary Catheter Removed: 09/06/21 Time Urinary Catheter Discontinued: 03:00 Data : 09/06/21 04:10 09/06/21 04:10 A&P Assessment and plan (1) Lung mass: Today status post lung resection. Negative for malignancy. Positive for cryptococcus. I will be reaching out to Dr. Rodríguez from our infectious disease service. I was unable to reach her this morning. Continue chest to waterseal. DC epidural catheter. Continue increased activity. Chest x-ray in a.m. Status: Acute Attestations Medical Necessity Statement*: Status post segmentectomy. Pulmonary cryptococcus. Time Spent in Patient Care: 16 - 35 minutes Coding Level of Care Code Acute Nutrition Partner for Joselyn Johnson Diagnoses Lung mass R91.8
[2021-09-08 13:14] LABS: Vancomycin Trough < 4.0 ug/mL (10-15)
--- NOTE | 2021-09-08 15:13 | PC.NURSE ---
Pt's IV went bad. This nurse called Dr. Borrero to assess the need for a new IV. Per Dr. Borrero, the patient does not need an IV at this time.
--- NOTE | 2021-09-08 17:27 | PM.MISC ---
Miscellaneous Note Purpose of Documentation: There is no airleak with quiet respiration though with coughing there is some and as well there is a bit more prominence to the subtendinous emphysema. Therefore, will place her chest tube to Pleur-evac suction for tonight and follow-up with reexamination the morning. I have tentatively scheduled her for thoracic vent placement tomorrow around noon to allow for further outpatient management if the small air leak continues. Rationale for this was carefully discussed with her and she is in agreement.
[2021-09-08 20:44] VITALS: BP 156/75; PULSE 81; RESP 19; TEMP 36.6; O2SAT 95
[2021-09-08] MEDS: docusate sodium 100 mg Capsule PO (20:56)
[2021-09-09] VITALS (17 sets, daily range): BP systolic 117–158; BP diastolic 62–89; PULSE 71–86; RESP 17–22; TEMP 36.2–37.3; O2SAT 95–100
[2021-09-09] MEDS: morphine 4 mg/mL SDV 1 mL 2 MG IVP (01:00)
[2021-09-09] MEDS: vancomycin 750 MG in sodium chloride 0.9% 250 ML 250 MG IV (01:01)
--- NOTE | 2021-09-09 01:51 | PC.NURSE ---
IV infiltrated during infusion. Patient refused to allow me to resite IV at this time-explained that she would have to have access before her procedure tomorrow. Patient refused to have anymore IV Vancomycin stating, It alvarez.
--- NOTE | 2021-09-09 08:05 | PM.PN ---
Subjective Subjective: Interval history: Patient did well last night. Has no specific complaints. Unfortunately, her chest tube was not on suction this morning and I suspect was probably on waterseal all night. With coughing there is an air leak noted. I have placed her back to Pleur-evac suction. Vitals/I&O/Wt Last Vital Signs Temp 97.9 F 09/09/21 04:00 Pulse 81 09/09/21 04:00 Resp 18 09/09/21 04:00 BP 144/76 09/09/21 04:00 Pulse Ox 96 09/09/21 04:00 09/08/21 09/09/21 09/09/21 22:59 06:59 14:59 Intake Total 580 / 1790 15 / 1805 Balance 580 / 1790 / 1805 Physical Exam Chest: OTHER: Decreased left chest wall subcutaneous emphysema. Resp: COMMON NORMALS: normal respiratory effort and clear to auscultation bilaterally EFFORT & INSPECTION: Yes able to speak in complete sentences and Yes symmetric chest movement AUSCULTATION: clear to auscultation bilaterally Urinary Catheter Management^: Mathis: Cath Placed During This Visit: yes, but has since been removed by the nurse Reason for Continuing Indwelling Catheter: Accurate Measurement of Urinary Output in Critically Ill Patients Urinary Catheter Date of Insertion: 09/05/21 Urinary Catheter Time of Insertion: 11:00 Date Urinary Catheter Removed: 09/06/21 Time Urinary Catheter Discontinued: 03:00 Data : 09/06/21 04:10 09/06/21 04:10 A&P Assessment and plan (1) Lung mass: Status post segmentectomy. Small residual air leak remains. Plan: I will plan for thoracic vent placement at noon today with subsequent plans for discharge to home. 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
[2021-09-09] MEDS: HYDROcodone-acetaminophen 7.5-325 mg Tablet 1 TAB PO ×3 (08:12→21:03)
[2021-09-09] MEDS: pantoprazole DR 40 mg Tablet PO (08:12)
[2021-09-09] MEDS: ketorolac 30 mg/mL INJ IVP (11:16)
--- NOTE | 2021-09-09 11:56 | ANES.PREANE2 ---
Pre-Anesthetic Assessment Pre-Anesthetic Assessment: Height/Weight: Height 1.55 m Weight 40.823 kg Temp Pulse Resp BP Pulse Ox 98.5 F 77 18 137/65 96 09/09/21 08:00 09/09/21 08:00 09/09/21 08:00 09/09/21 08:00 09/09/21 08:00 Preop Diagnosis: Left lower lobe lung mass Proposed Procedure: Operation Date: 09/05/21 09:50 Proposed Procedures p Segmentectomy, Thoracoscopy/Thoracotomy, Lobectomy(Left) - Fredy Borrero MD Operation Date: 09/09/21 12:00 Proposed Procedures p Thoracic Vent(Left) - Fredy Borrero MD Familial anesthetic complications: none Was Beta Zay taken within 24 hours: N/A Was Clonidine taken within 24 hours: N/A Last intake: Intake Last Liquid Date 09/08/21 Last Liquid Time 23:30 Last Solid Date 09/08/21 Last Solid Time 18:00 Social: Social History: Tobacco and No alcohol Exam: Pre-Anes Outpt Exam: alert, oriented x 3 and regular rate & rhythm Additional Exam Findings (including area of procedure): coarse breath sounds b/l, diminshed L Airway: MP: 2 Dentition: Chipped Pulmonary: Pulmonary: COPD Anesthetic Plan: ASA status: 3 Anesthesia: MAC Risk of > 500 ml blood loss (7ml/kg in children): No Meds/Allergies Current Medications: Current Medications Generic Name Dose Route Start Last Admin Trade Name Freq PRN Reason Stop Dose Admin Hydrocodone Bitart /Acetaminophen 1 tab 09/05/21 15:06 09/09/21 08:12 Hydrocodone-Acet aminophen 7.5-325 Mg Tablet PO 1 tab Q4H PRN Administration MODERATE PAIN Docusate Sodium 100 mg 09/05/21 15:06 09/08/21 20:56 Docusate Sodium 100 Mg Capsule PO 100 mg BID PRN Administration Constipation (Use 1st) Vancomycin HCl 750 mg/ Sodium 250 mls @ 250 mls /hr 09/09/21 01:00 09/09/21 01:50 Chloride IV Infused Q12H PEG Infusion Protocol As Directed Ketorolac Trometha mine 30 mg 09/05/21 15:06 09/09/21 11:16 Ketorolac 30 Mg/ Ml Inj IVP 09/10/21 15:05 30 mg Q6H PRN Administration MODERATE PAIN Morphine Sulfate 2 mg 09/05/21 15:06 09/09/21 01:00 Morphine 4 Mg/Ml Sdv 1 Ml IVP 2 mg Q1H PRN Administration SEVERE PAIN Non-Formulary Medi cation 1 inh 09/06/21 09:00 09/08/21 09:46 Fluticasone-Umec lidin-Vilanter [Tr elegy Ellipta] INHALATION Not Given DAILY PEG Pantoprazole Sodiu m 40 mg 09/06/21 09:00 09/09/21 08:[address] 40 Mg Tablet PO 40 mg DAILY PEG Administration PFSH Anesthesia PFSH: Medical History Colon polyps Lung mass Family History Father CAD (coronary artery disease) Cancer Hyperlipidemia Mother Lung disease Grandmother Stroke Denies family history of Diabetes Dementia Psychiatric illness Chronic kidney disease (CKD) Suicide Hypertension Social History Alcohol intake: never Lives independently: Yes Household members: spouse Housing: House Marital status: Number of children: 3 Pets and animals: Yes Data Anesthesia CBC & Chem 7: 09/06/21 04:10 09/06/21 04:10 Other Labs: Laboratory Results - last 48 hr 09/08/21 12:32 Vancomycin Trough < 4.0 L Cardiac Studies: No Data to Display
--- NOTE | 2021-09-09 12:48 | PC.NURSE ---
Procedure started at 1248. 6 ml 2% lidocaine injected into chest wall by Dr. Borrero. Thoracic vent placed left chest wall. Connected to water seal chest tube with continuous suction. Patient tolerated well. Procedure ended at 1259.
--- NOTE | 2021-09-09 13:01 | XR_ITS ---
WS: [id number] Exam: XR chest 1V portable [id number] Date/Time of Exam: 09/09/2021 1:01 PM Reason For Exam: post-procedure Comparison 09/08/2021. Previously noted left thoracostomy tube is been removed. A smaller tube has been positioned in the up per left pleural cavity. There is significant increase in subcutaneous emphysema over the left chest which obscures lung detail. There is probably a small left apical pneumothorax present. The right sly g is clear. No midline shift noted. Cardiomediastinal silhouette is unremarkable. XR/XR chest 1V portable [id number] IMPRESSION: 1. Probable small left apical pneumothorax however detail is limited due to the increasing subcutaneous emphysema over the left chest. 2. Previously noted left chest tube is been removed. A smaller chest tube has b een placed in the upper left pleural cavity. 3. Of the right lung remains clear and fully expanded. No sign of tension or mi dline shift.
--- NOTE | 2021-09-09 13:06 | ANE.PACU2 ---
Inpatient post-anesthesia follow up: Airway intact: Yes Vital signs: Temperature 99.2 F Pulse Rate 84 Respiratory Rate 17 Blood Pressure 158/86 Pulse Oximetry 96 Oxygen Delivery Me thod Room Air Oxygen Flow Rate 2 Fraction of Inspir ed Oxygen Hydration adequate: Yes Nausea and vomiting: No Pain level: 2 Mental status: Baseline
--- NOTE | 2021-09-09 13:24 | P.OP_ITS ---
Operative Report Date of procedure: September 09, 2021 Pre-op Diagnosis: Left lower lobe lung mass status post resection: Airleak Post-op diagnosis: same Procedure Done: Left 13 Greenlandic thoracic vent placement Pathology: none sent Surgeon: Fredy Borrero Anesthesia: MAC and Local Complications: None: Chest x-ray pending Condition: stable Disposition: floor Brief History: Ms. Davenport is a pleasant 66-year-old female with a long history tobacco use and a PET positive left lower lobe lung nodule. She underwent resection on September 05. 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 She has had a slow no persistent air leak. Chest tube was inadvertently left waterseal overnight as opposed to Pleur-evac suction and there is increased subtendinous emphysema though no increasing respiratory difficulties. I have elected to transition from the chest tube to a thoracic vent to allow for continued management of this small air leak as well as to allow for increased mobility. Rationale was carefully discussed with her. Proper consents have been reviewed and signed. Procedure: Ms. Davenport was taken to the outpatient surgery department where she was carefully positioned. She underwent IV conscious sedation with anesthesia monitoring. Her entire left anterior chest wall was sterilely prepped and draped. Appropriate timeout was performed and confirmed by all members present. 1% lidocaine was infiltrated in the midclavicular line in the second intercostal space. An 11 scalpel blade was utilized to incise the skin where there was some return of subcutaneous air consistent with her known emphysema. Next, utilizing a catheter over trocar technique, a 13 Greenlandic thoracic vent was placed into the left second intercostal space and into the pleural cavity with advancement upon withdrawal of the trocar and confirmation of intrapleural positioning. Adhesive tabs were secured to the skin followed by further securing with 2-0 silk suture in two locations. This then was then connected to Pleur-evac suction with her was further removal of intrathoracic air. Next, the left operative pleural drain was removed after sterile prepping and draping and this site was secured with suture. The left thoracotomy bandage was removed, incision noted to be clean, dry, and intact. This area was painted with chlorhexidine and a new dressing applied. Ms. Davenport tolerated the procedure well and was awakened from IV conscious sedation and was quite comfortable. Post procedure chest x-ray reveals perhaps a rim left apical pneumothorax. There is subcutaneous emphysema. The left thoracic vent appears to be in good position. She is transferred back to the [facility] in stable condition. We will leave her thoracic vent on Pleur-evac suction for now.
--- NOTE | 2021-09-09 13:55 | PC.CHAP ---
Pastoral Care Encounter/Spiritual Assessment Type of Contact [] Declined plant security guard visit [] Patient/Family/Request visit [] Outpatient visit [xxx] Follow-up visit [] Physician referral [] Code/Alert [xx] Routine visit [] Staff referral [] Actively dying [] Patient sleeping [] Family support [] [] Out of room [] Palliative care [] [] Receiving care in room [] Pre-surgical visit [] Trauma [] Long length of stay [] ICU visit [] Other: Relational/Emotional Strength [xx] Patient feels connected with others/family/visitors/staff [] Distress [] Loneliness/isolation [] Abandonment Spirituality of Patient xx] Person of Tiffanie [] Attends Yarsani of their Tiffanie [xx] Believes in Prayer [xx] Reads Bible or Yazidi materials [] There are Spiritual issues to be addressed Machine Guide Base Winder Interventions [xx] Prayer [xx] Active listening [xx] Non-anxious presence [] Spiritual/emotional support [] Crisis/trauma care [] Spiritual counseling [] Bereavement support [] Provided bereavement packet [xx] Provided Bible/devotional materials [] Provided toy/stuffed animal, coloring book to patient or family member [] Provided Communion [] Anointing/[place] [] Salvation [xx] Completed spiritual assessment [] Other: Impact on Illness or Injury [] Angry [] Fearful [] Anxious [] Often cries [] Exhaustion [xx Unable to work [] Unable to attend uatsdin [] Unable to walk/stand [] Unable to read [xx] Unable to drive [] Unable to eat/drink [] Unable to sleep [] Unable to be with family [] Patient intubated [] Other: Summary Patient still in pain from recent surgery and expects another surgical procedure before she can go home. She has positive attitude but will be glad clarke she can go home. Time spent with patient 5 minutes
[2021-09-10] VITALS: BP 137/74; PULSE 74; RESP 20; TEMP 36.4; O2SAT 95
[2021-09-10] MEDS: HYDROcodone-acetaminophen 7.5-325 mg Tablet 1 TAB PO (01:55)
[2021-09-10 04:00] VITALS: BP 128/81; PULSE 89; RESP 19; TEMP 36.5; O2SAT 94
--- NOTE | 2021-09-10 06:00 | XRR_ITS ---
PROCEDURE INFORMATION: Exam: XR Chest Exam date and time: 09/10/2021 6:00 AM Age: 66 years old Clinical indication: Device placement; Chest tube; Prior surgery; Additional info: S/P thoracic vent placement day 2 TECHNIQUE: Imaging protocol: XR of the chest. Views: 1 view. COMPARISON: CR XR chest 1V portable [id number] 09/09/2021 1:11 PM FINDINGS: Lungs: Emphysema. Left upper lobe chain sutures and scarring. No focal consolidation. Pleural spaces: Small left apical pneumothorax redemonstrated with pneumo dart in place. Heart/Mediastinum: Unremarkable. No cardiomegaly. Bones/joints: Unremarkable. Soft tissues: There is again extensive left chest wall subcutaneous emphysema, unchanged. XR/XR chest 1V portable [id number] IMPRESSION: Postsurgical changes in the left hemithorax with a small residual apical pneumothorax and pneumo dart in place.
[2021-09-10 07:42] VITALS: BP 132/82; PULSE 78; RESP 18; TEMP 36.4; O2SAT 95
--- NOTE | 2021-09-10 10:05 | PC.SOCIAL ---
IMM Update Discussed medicare rights with patient, verbalized understanding. Provided patient with a copy and initialed, timed and dated copy in patient's chart.
--- NOTE | 2021-09-10 10:13 | P.DS_ITS ---
Discharge Providers Date of Admission: 09/05/21 14:00 Date of Discharge: September 10, 2021 Attending Provider at Admission: Fredy Borrero MD Attending Provider at Discharge: Fredy Borrero MD Primary Care Provider: Solange Yates Diagnoses at Discharge Discharge Diagnosis (1) Lung mass: Status: Acute Reason for Visit Reason for Visit: Left lower lobe lung lesion; PET positive Hospital Course Hospital Course Ms. Davenport is a 66-year-old female who was referred to our service for a left lower lobe superior segment lung mass identified on low-dose CT scan lung screening. PET scan revealed increased activity in this cavitary lesion. Given her radiographic findings and long history tobacco use, resection was recommended. She did have marginal PFTs. She was electively admitted on September 05 and underwent left lower lobe superior segmentectomy and wedge resection of the apical posterior segment of the left upper lobe. Pathology has subset return cryptococcus without evidence for malignancy. Postoperatively, she initially convalesced in the ICU with good pain control with the use of thoracic epidural catheter and oral medication. She had a modest air leak. This continued for the next 2 days whether the chest tube was on suction or Pleu r-evac waterseal. I subselected to transition to a thoracic vent which was placed yesterday and removal of her original surgical drain. Vent has been placed on suction and this morning there appears to be resolution of air leak with resolving subcutaneous emphysema and complete expansion of her left lung. Home health arrangements have been made and she will be discharged to home with scheduled follow-up in our clinic next week with chest x-ray. We will leave the thoracic vent in place until review of her upcoming x-ray. She is in good spirits. Requiring no supplemental oxygen. Good use of incentive spirometry pulling over 1000 cc. She has a clear cough. Vital signs have been stable she has been afebrile. We will have her pathology report reviewed with Dr. Rodríguez from infectious disease when she is available. Presently at the time of discharge, Ms. Davenport is in stable condition. Physical Exam Chest: COMMONS NORMALS: normal inspection of the chest OTHER: Ergotamine incision is healing well. Surgical drain site is well approximated. Thoracic vent is in good position both by exam and by x-ray and has been secured with adhesive tabs and 2-0 silk suture. Resp: COMMON NORMALS: normal respiratory effort, No use of accessory muscles and clear to auscultation bilaterally EFFORT & INSPECTION: Yes able to speak in complete sentences and Yes symmetric chest movement AUSCULTATION: clear to auscultation bilaterally Urinary Catheter Management^: Mathis: Cath Placed During This Visit: yes, but has since been removed by the nurse Reason for Continuing Indwelling Catheter: Accurate Measurement of Urinary Output in Critically Ill Patients Urinary Catheter Date of Insertion: 09/05/21 Urinary Catheter Time of Insertion: 11:00 Date Urinary Catheter Removed: 09/06/21 Time Urinary Catheter Discontinued: 03:00 Discharge Data Data Completed and Pending: Completed Studies During Hospitalization Category Date Time Status CXRP [XR chest 1V portable [id number]] R outine Exams 09/05/21 17:00 Completed CXRP [XR chest 1V portable [id number]] R outine Exams 09/09/21 13:01 Completed XR chest 1V letty ble [id number] Routine Exams 09/06/21 06:00 Completed XR chest 1V letty ble [id number] Routine Exams 09/07/21 06:00 Completed XR chest 1V letty ble [id number] Routine Exams 09/08/21 06:00 Completed XR chest 1V letty ble [id number] Routine Exams 09/10/21 06:00 Completed Pathology: Surgic al [PTH] Routine Pth 09/05/21 13:15 Completed Pending at discharge Category Date Time Status Antibody Identifi cation Routine Lab 08/31/21 10:20 Results Antigen Typing Pa tient Routine Lab 08/31/21 10:20 Results CTS [Type and Scr een - Cardiac] Rou willy Lab 08/31/21 10:20 Results Leukocyte Reduced RBC Routine Lab 08/31/21 10:20 Results Labs from last 24 hours 08/31/21 10:20 Crossmatch See Detail Vitals: Last Vital Signs Temp 97.6 F 09/10/21 07:42 Pulse 78 09/10/21 07:42 Resp 18 09/10/21 07:42 BP 132/82 09/10/21 07:42 Pulse Ox 95 09/10/21 07:42 Discharge Plan Discharge Patient Disposition: Home Health Service Condition: Good Prescriptions: New hydrocodone-acetaminophen 5-325 mg tablet 1 tab PO Q6H PRN (Reason: pain) Qty: 20 RF: 0 Continued Trelegy Ellipta 100-62.5-25 mcg blister with device 1 inh inhalation DAILY RF: 0 albuterol sulfate 90 mcg/actuation aerosol powdr breath activated 2 inh inhalation Q6H PRN (Reason: Shortness Of Breath) RF: 0 cetirizine [Zyrtec] 10 mg tablet 10 mg PO DAILY PRN (Reason: Shortness Of Breath) RF: 0 Discharge Orders: Discharge Order (Routine); Ordered 09/10/21 Ordered By: Fredy Borrero Referrals: [facility] Home Care [Other] Fredy Borrero MD [Physician] - 4-7 days Discharge Diet: Usual diet Discharge Activity: Limit activity as instructed Patient Instructions: Opioid Safety Activity Restrictions/Additional Instructions: No showers, swelling, or tub baths until thoracic vent is removed. No heavy lifting or pulling. Use incentive spirometer frequently Report any fever, chills, increasing pain, shortness of breath, or productive cough. Discharge Attestations Time Spent in Discharge Care*: less than 30 min Specific Discharge Activities: educating patient, discussing with case yaa dahl/social workers/dc planners, documenting/other paperwork and evaluating patient/reviewing data Time Spent in Smoking Cessation: 3 to 10 minutes Status at Discharge: Cognitive status at discharge: cognitively intact , Behavioral status at discharge: cooperative , Functional status at discharge: independent ambulation Overall status at discharge: patient is progressing back to baseline Quality Metrics Clinical Quality Measures During this hospital stay, did patient experience: None Coding Level of Care Code Acute [place] AISHWARYA MESA note Diagnoses Lung mass R91.8
[2021-09-10] MEDS: nystatin 100,000 unit/mL UDC 5 mL 400000 UNIT PO (11:22)
== END 2021-09-10 11:45 | disposition home health service (06) | DRG 164 ==
LOC: ICU 14:19 → MEDSURG 09-07 06:28
PROVIDERS: Admitting Provider Thoracic Surgery (Cardiothoracic Vascular Surgery); PCP Nurse Practitioner Family; Visit Provider Thoracic Surgery (Cardiothoracic Vascular Surgery)
PROC: 0BBJ0ZZ Excision of Left Lower Lung Lobe, Open Approach (ICD-10-PCS; CPT 32480; principal; 2021-09-05 09:40)
DX: R91.8 Other nonspecific abnormal finding of lung field (principal); B45.0 Pulmonary cryptococcosis; J95.812 Postprocedural air leak; F17.210 Nicotine dependence, cigarettes, uncomplicated; T81.82XA Emphysema (subcutaneous) resulting from a procedure, initial encounter; Y81.0 Diagnostic and monitoring general- and plastic-surgery devices associated with adverse incidents; Z79.51 Long term (current) use of inhaled steroids
CPT/HCPCS: 36415; 51702; 71045; 80048; 80202; 80500; 81001; 85025; 85610; 86850; 86870; 86900; 86902; 86920; 88305; 88309; 93005; 94664; J1100; J1885; J2250; J2270; J2370; J2405; J2704; J2795; J3010; J3370; J3490; J7030; J7050

== ENCOUNTER 2021-09-19 11:00 | Outpatient (CLI) | payer MEDICARE, SELFPAY ==
--- NOTE | 2021-09-19 11:15 | XR_ITS ---
WS: [id number] Exam: XR chest 2V* [id number] Date/Time of Exam: 09/19/2021 11:28 AM Reason For Exam: assess thoracic vent Comparison 09/10/2021. Previously noted left upper lobe pneumothorax has resolved. The lungs are fully expanded. There is a mild infiltrate in the left lower lobe. Postoperative changes at the left hilum. The right lung is cl ear and hyperinflated. Improving left-sided subcutaneous emphysema noted. Small left-sided chest tube is unchanged in position in the upper left pleural cavity. Normal heart size. Leftward mediastinal a nd airway shift unchanged. Likely secondary to partial left pneumonectomy. Postoperative changes of t he left rib cage secondary to thoracotomy. XR/XR chest 2V* [id number] IMPRESSION: 1. Resolved left upper lobe pneumothorax since previous study. Left chest tube unchanged in location. 2. Small infiltrate and/or atelectasis in the left base. 3. Improving subcutaneous emphysema along the left rib cage and left shoulder.
== END 2021-09-19 11:01 | disposition home or self-care (01) ==
LOC: RAD 11:08
PROVIDERS: PCP Nurse Practitioner Family; Visit Provider Internal Medicine Pulmonary Disease
DX: R91.8 Other nonspecific abnormal finding of lung field (principal); T79.7XXA Traumatic subcutaneous emphysema, initial encounter; X58.XXXA Exposure to other specified factors, initial encounter
CPT/HCPCS: 71046

== ENCOUNTER → 2021-10-31 12:13 | Outpatient (BNVA) | payer MEDICARE, SELFPAY | PROVIDERS: PCP Nurse Practitioner Family; Visit Provider Student in an Organized Health Care Education/Training Program | DX: B45.0 Pulmonary cryptococcosis (principal) | CPT/HCPCS: 86705; 86706; 86709; 86803; 87340; 87806 ==

== ENCOUNTER 2021-11-28 11:37 | Outpatient (CLI) | payer MEDICARE, SELFPAY ==
--- NOTE | 2021-11-28 12:00 | CT_ITS ---
WS: [id number] CT CHEST WITHOUT INTRAVENOUS CONTRAST HISTORY: follow up on cryptococcosis TECHNIQUE: Contiguous 5 mm axial imaging performed on the thorax. Coronal and sagittal reformats are submitted. All CT scans at [facility] use at least one of these dose optimization techniques: automated exposure control; mA and/or kV adjustment per patient size (includes targeted exams where dose is matched to clinical indication); or iterative reconstruction. CONTRAST: None DLP: 396.86 mGy.cm COMPARISON: 04/26/2021 and radiograph 09/19/2021 Lungs and central airway: Marked hyperexpansion with emphysema. Partial resection of the superior asp ect of the LEFT lower lobe. Postsurgical changes with sutures in postoperative cavity are now present with adjacent pleural thickening. No recurrent mass is identified. Pleura: Normal. No pleural effusion. Heart and pericardium: Normal size heart with no pericardial effusion. Mediastinum and robb: Subtle lymphadenopathy or change in lymph node size would be difficult to exclu de without IV contrast. Vessels: Mild atherosclerosis aorta. Pulmonary artery size is equal to the aorta. Chest wall and lower neck: No change in appearance of the chest wall structures. Upper abdomen: Suprarenal calcification in aorta. No adrenal mass. 5 mm low-attenuation nodule in the superior liver may be a small cyst. There is a larger nodule in the midline towards the LEFT lobe me asuring 15 mm which is unchanged. Osseous structures: New sclerosis and loss of the normal superior endplate of L1. Mild compression de formity at just less than 10% through the superior L1 endplate extending to the posterior vertebral b thelma. CT/CT chest wo con [id number] IMPRESSION: 1. Partial resection superior segment LEFT lower lobe. Postsurgical changes wi th no residual or increasing mass or adenopathy. Continued follow-up recommende d. 2. Subtle adenopathy at the hilum and mediastinum would be difficult to exclud e without IV contrast. 3. New, less than 10% compression fracture involving the superior endplate of L1 with extension into the posterior vertebral body.
== END 2021-11-28 11:38 | disposition home or self-care (01) ==
LOC: RAD 11:38
PROVIDERS: PCP Nurse Practitioner Family; Visit Provider Student in an Organized Health Care Education/Training Program
DX: B45.0 Pulmonary cryptococcosis (principal)
CPT/HCPCS: 71250

== ENCOUNTER 2022-01-02 11:06 | Outpatient (CLI) | payer MEDICARE, SELFPAY ==
--- NOTE | 2022-01-02 11:17 | MM_ITS ---
WS: [id number] ADDITIONAL VIEWS RIGHT MAMMOGRAM RIGHT BREAST ULTRASOUND HISTORY: 6 MO F/U ABNORMAL/INCONCLUSIVE FINDING ON PRIOR MAMMOGRAM. COMPARISON: 06/20/2021, 04/26/2021 RIGHT MAMMOGRAM: Spot compression views and true ML. The asymmetry in the superior RIGHT breast extending to the upper-outer quadrant similar to prior jed dies. No distortion. There is a benign calcification at 12:00. RIGHT BREAST ULTRASOUND 2-D and color Doppler imaging submitted. Ultrasound is directed to the upper outer quadrant of the RIGHT breast as on the prior examination. T here is a vague area of slight change in echogenicity at 10:00 within the RIGHT breast measuring 3.0 x 2.3 x 0.6 cm Similar to the prior study and corresponds to the mammographic abnormality. No interval change in siz e. This may be a benign lipoma or fibroadenolipoma. MM/[place] [id number] IMPRESSION: BI-RADS: 3-Probably Benign FOLLOW UP: 6 Month Follow-up Patient to return in 6 months for annual mammogram. This area in the RIGHT [address] should be further evaluated at that time for interval change or stability.
== END 2022-01-02 11:07 | disposition home or self-care (01) ==
LOC: RAD 11:13
PROVIDERS: PCP Nurse Practitioner Family; Visit Provider Nurse Practitioner Family
DX: R92.8 Other abnormal and inconclusive findings on diagnostic imaging of breast (principal)
CPT/HCPCS: 76642; 77061

== ENCOUNTER 2022-07-03 12:00 | Outpatient (CLI) | payer MEDICARE, SELFPAY ==
--- NOTE | 2022-07-03 12:05 | MM_ITS ---
WS: [id number] DIAGNOSTIC BILATERAL DIGITAL BREAST TOMOSYNTHESIS MAMMOGRAPHY WITH CAD RIGHT breast ultrasound, limited HISTORY: 6 MO F/U RT ABNORMAL MAMMOGRAM/ COMPARISON: 01/02/2022 and 06/20/2021 and 04/26/2021 TECHNIQUE: Bilateral craniocaudad, mediolateral oblique, and mediolateral views are submitted with to mosynthalex and SM. Computer aided detection utilized. Breast composition: The breasts are heterogeneously dense, which may obscure small masses. No change in the asymmetries in the upper-outer quadrant of each breast. Slightly more asymmetry in the RIGHT b reast but unchanged from prior studies. Benign calcifications in each breast. RIGHT breast ultrasound, limited. The mild asymmetry in the RIGHT breast at 10:00 is reidentified measuring 2.6 x 0.2 x 3.4 cm. No incr ease or interval change. This is probably normal fibroglandular breast tissue. Ultrasound is also obt ained in the medial RIGHT breast. No abnormality. MM/[place] [id number] IMPRESSION: BI-RADS: 2-Benign FOLLOW UP: 1 Year Follow-up
--- NOTE | 2022-07-03 12:37 | US_ITS ---
WS: [id number] DIAGNOSTIC BILATERAL DIGITAL BREAST TOMOSYNTHESIS MAMMOGRAPHY WITH CAD RIGHT breast ultrasound, limited HISTORY: 6 MO F/U RT ABNORMAL MAMMOGRAM/ COMPARISON: 01/02/2022 and 06/20/2021 and 04/26/2021 TECHNIQUE: Bilateral craniocaudad, mediolateral oblique, and mediolateral views are submitted with to mosynthalex and SM. Computer aided detection utilized. Breast composition: The breasts are heterogeneously dense, which may obscure small masses. No change in the asymmetries in the upper-outer quadrant of each breast. Slightly more asymmetry in the RIGHT b reast but unchanged from prior studies. Benign calcifications in each breast. RIGHT breast ultrasound, limited. The mild asymmetry in the RIGHT breast at 10:00 is reidentified measuring 2.6 x 0.2 x 3.4 cm. No incr ease or interval change. This is probably normal fibroglandular breast tissue. Ultrasound is also obt ained in the medial RIGHT breast. No abnormality. US/US breast RT limited* [id number] IMPRESSION: BI-RADS: 2-Benign FOLLOW UP: 1 Year Follow-up
== END 2022-07-03 12:01 | disposition home or self-care (01) ==
LOC: RAD 12:01
PROVIDERS: PCP Registered Nurse; Visit Provider Registered Nurse
DX: R92.8 Other abnormal and inconclusive findings on diagnostic imaging of breast (principal)
CPT/HCPCS: 76642; 77062

== ENCOUNTER 2022-11-01 06:00 | Outpatient (RCR) | payer MEDICARE, SELFPAY | END 2022-11-28 23:59 | disposition home or self-care (01) | LOC: WPT 06:00 | PROVIDERS: PCP Registered Nurse; Visit Provider Internal Medicine Pulmonary Disease | DX: R53.1 Weakness (principal); J44.9 Chronic obstructive pulmonary disease, unspecified | CPT/HCPCS: 97110; 97112; 97116; 97162 ==

== ENCOUNTER 2022-11-16 12:54 | Outpatient (CLI) | payer MEDICARE, SELFPAY ==
--- NOTE | 2022-11-16 13:30 | CT_ITS ---
WS: [id number] LDCT LUNG CANCER SCREENING HISTORY: F17.210 - Nicotine dependence, cigarettes, uncomplicated TECHNIQUE: Axial imaging performed from the apices to 1 cm below the costophrenic angles. Coronal and sagittal reformats are submitted with axial MIP series. All CT scans at [facility] use at least one of these dose optimization techniques: automated exposure control; mA and/or kV adjustment per patient size (includes targeted exams where dose is matched to clinical indication); or iterativ e reconstruction. DLP: 78.71 mGy.cm DIvol: Mean CTDIvol: 1.60 (mGy) COMPARISON: 11/28/2021, 04/26/2021 Diagnostic quality: Satisfactory Lung Nodules: New spiculated nodule central RIGHT upper lobe with a mean diameter of 8 mm. Stable sin ce 04/26/2021 is a 3 mm nodule at the RIGHT lung base. Postoperative changes with volume loss and scar ring centered in the central LEFT lung. Postoperative changes. No recurrent mass or cavitary lesion i dentified. Lungs: Chronic emphysema. Paraseptal and centrilobular emphysematous changes. Heart: Normal size heart. Small pericardial effusion has mildly progressed since the prior studies. Other findings: Atherosclerosis aorta. Moderate coronary artery atherosclerosis. No mediastinal adeno belinda. CT/CT lung screening [id number] IMPRESSION: LUNG-RADS: 4A-Probably Suspicious FOLLOW UP: PET/CT recommended OTHER FINDINGS (S MODIFIER): None.
== END 2022-11-16 12:55 | disposition home or self-care (01) ==
PROVIDERS: PCP Registered Nurse; Visit Provider Internal Medicine Pulmonary Disease
DX: Z12.2 Encounter for screening for malignant neoplasm of respiratory organs (principal); B45.0 Pulmonary cryptococcosis; F17.210 Nicotine dependence, cigarettes, uncomplicated; J44.9 Chronic obstructive pulmonary disease, unspecified
CPT/HCPCS: 71271

== ENCOUNTER 2022-11-29 06:00 | Outpatient (RCR) | payer MEDICARE, SELFPAY ==
--- NOTE | 2022-12-01 07:43 | PC.PULMREH ---
Patient completed Pulmonary Rehabilitation Education with spouse.
== END 2022-12-29 23:59 | disposition home or self-care (01) ==
LOC: WPT 06:00
PROVIDERS: PCP Family Medicine; Visit Provider Internal Medicine Pulmonary Disease
DX: R53.1 Weakness (principal); J44.9 Chronic obstructive pulmonary disease, unspecified
CPT/HCPCS: 97110; 97112; 97116; 97530

== ENCOUNTER 2022-12-02 09:05 | Outpatient (CLI) | payer MEDICARE, SELFPAY ==
--- NOTE | 2022-12-02 09:30 | PETR_ITS ---
PROCEDURE INFORMATION: Exam: PET/CT Skull Base to Mid-thigh Exam date and time: 12/02/2022 10:12 AM Age: 67 years old Clinical indication: Abnormal findings; Abnormal finding of lung field; Additional info: New spiculated 8mm lung nodule, 11/17/22 pet/ct: LABS AND CLINICAL REPORTS: Glucose: 104 mg/dl Treatment strategy for malignancy (PET staging): Initial Staging (PI) TECHNIQUE: Imaging protocol: Following at least four-hour fasting and following the injection of F-18-FDG, low dose CT images were obtained. Then, PET images were obtained. Attenuation corrected images were constructed using the CT scan. Fused images of PET and CT were reviewed. The standardized uptake values (SUV) reported below are maximum values within a region of interest, expressed in gm/ml. Exam includes orbital meatal line to mid-thigh. Radiopharmaceutical: 13.53 mCi F-18 FDG (Fluorodeoxyglucose), IV. Time of imaging post radiopharmaceutical administration: 1 hour Injection site: Left antecubital COMPARISON: CT chest 11/16/2022, PT PET [facility] INITIAL [id number] 05/10/2021 10:36 AM FINDINGS: Brain: Visualized brain has normal physiologic uptake. Pharynx: No abnormal uptake. Larynx: No abnormal uptake. Lungs, pleura and trachea: A solid spiculated bilobed noncalcified right upper lobe nodule on series 3, image 36 measures 0.9 x 0.8 cm, SUV max 1.6. This nodule is similar in size compared with the prior chest CT, new since the prior PET-CT. Moderate bilateral centrilobular and paraseptal emphysematous changes are present. Surgical staple lines in the posterior left upper lobe and superior segment left lower lobe are noted with adjacent linear areas compatible with scarring, without elevated uptake. A pleural based right lower lobe solid noncalcified 3-4 mm nodule on series 3, image 56 is not radiotracer avid. No definite additional pulmonary nodules are identified. Heart: Normal physiologic uptake. Small pericardial effusion. Mediastinal space: No abnormal uptake. Liver: No abnormal uptake. Gallbladder and bile ducts: No abnormal uptake. Pancreas: No abnormal uptake. Spleen: No abnormal uptake. Adrenal glands: No abnormal uptake. Kidneys and ureters: Normal physiologic uptake. Stomach and bowel: There is a persistent rounded focus of elevated uptake in the right presacral space, SUV max 19.0 (previously 21.3) centered in the region of appears to represent a an unopacified loop of small bowel on series 3, image 117. Vasculature: No abnormal uptake. Lymph nodes: No abnormal uptake. No lymphadenopathy in the head, neck, chest, abdomen, pelvis, and extremities. Bones/joints: No abnormal uptake in the visualized axial and appendicular skeleton. The bones appear demineralized. Soft tissues: There is benign-appearing muscular uptake for example in the superolateral left intercostal region, SUV max 4.1 without evidence of an associated lesion on the CT images. METRICS: Mediastinal blood pool: SUV max 1.5 [facility] [id number] IMPRESSION: 1. Similar appearing postoperative changes in the left lung compared with 11/16/2022. No radiotracer avid left lung nodules are currently identified. 2. A spiculated nodule in the right upper lobe is similar compared with 11/16/2022, new since the prior PET-CT with no significant uptake (SUV max 1.6) which is similar to minimally increased compared with mediastinal blood pool activity. Although lack of significant uptake favors a benign etiology, a hypermetabolic malignancy cannot be excluded. Consider 3 month follow-up CT versus percutaneous biopsy for further evaluation. 3. Unchanged 3-4 mm right lower lobe nodule without elevated uptake. 4. Persistent region of elevated uptake in the presacral space (SUV max 19.0, previously 21.3) in a region of what appears to represent unopacified small bowel. Assessment of the wall of the small bowel is limited by lack of intraluminal contrast. Localized neoplastic involvement cannot be excluded particularly given the persistence of this finding and the degree of uptake. 5. Small pericardial effusion. 6. Bilateral pulmonary emphysematous changes. 7. Additional nonu above. rgent findings as detailed
== END 2022-12-02 09:06 | disposition home or self-care (01) ==
LOC: RAD 12-04 06:21
PROVIDERS: PCP Family Medicine; Visit Provider Internal Medicine Pulmonary Disease
DX: R91.8 Other nonspecific abnormal finding of lung field (principal)
CPT/HCPCS: 78815; A9552

== ENCOUNTER 2022-12-22 15:09 | Outpatient (CLI) | payer MEDICARE, SELFPAY ==
--- NOTE | 2022-12-22 15:27 | CT_ITS ---
WS: [id number] EXAMINATION: CT abdomen pelvis w con* [id number] ORDER DATE: 12/22/2022 3:41 PM COMPARISON: None HISTORY: SMALL BOWEL TUMOR TOTAL EXAM DLP: 212.[address] scans at [facility] use at least one of these dose optimization techniques: automated e xposure control; mA and/or kV adjustment per patient size (includes targeted exams where dose is matc hed to clinical indication); or iterative reconstruction. TECHNIQUE: Transaxial imaging through the abdomen and pelvis was performed with 2-D reformats followi ng the intravenous administration of Omnipaque 350 55 ml IV. Oral contrast was given. FINDINGS: There are centrilobular emphysema changes in the partially visualized lung bases. There is no sign o f pneumoperitoneum. The liver contains numerous mostly small hepatic cysts.. The gallbladder, spleen and pancreas were un remarkable. There is a normal appearance of both adrenal glands. There are a few tiny cysts in each kidney.. The stomach contains almost all the oral contrast without small bowel oral contrast. There are dilate d small bowel loops with some fluid retention. Very inspissated appearing feces distending the cecum. The remainder of the colon is mostly air-filled except for some short segments of descending colon a nd rectum containing some feces but mostly air. There is a normal-appearing appendix. There is no ascites or increased cul-de-sac fluid. The urinary bladder as imaged is unremarkable. There is atherosclerotic aortic change without aneurysm. There are degenerative disc and spine changes with generalized spondylosis. Moderate narrowing of L5-S1 is demonstrated with mild central disc protrusion at L4-5 and L5-S1. CT/CT abdomen pelvis w con* [id number] IMPRESSION: Partial small bowel obstruction etiology indeterminate but possibly due to very inspissated feces in the cecum or a combination of an adynamic ileus due to el ectrolyte or other systemic abnormality
[2022-12-22] MEDS: iohexol 350 mg/mL 500 mL Btl (per mL) IV (15:39)
[2022-12-22] MEDS: iohexol 350 mg/mL 500 mL Btl (per mL) PO (15:39)
== END 2022-12-22 15:10 | disposition home or self-care (01) ==
LOC: RAD 15:12
PROVIDERS: PCP Family Medicine; Visit Provider Family Medicine
DX: D49.0 Neoplasm of unspecified behavior of digestive system (principal)
CPT/HCPCS: 74177; Q9967

== ENCOUNTER 2022-12-30 06:00 | Outpatient (RCR) | payer MEDICARE, SELFPAY | END 2023-01-28 23:59 | disposition home or self-care (01) | LOC: WPT 06:00 | PROVIDERS: PCP Family Medicine; Visit Provider Internal Medicine Pulmonary Disease | DX: J44.9 Chronic obstructive pulmonary disease, unspecified (principal); R53.1 Weakness | CPT/HCPCS: 97110; 97112; 97530 ==

== ENCOUNTER 2023-03-09 13:00 | Outpatient (CLI) | payer MEDICARE, SELFPAY ==
--- NOTE | 2023-03-09 13:00 | CT_ITS ---
WS: [id number] CT CHEST TECHNIQUE: Noncontrast CT of the chest with coronal and sagittal reformatted images. CLINICAL INFORMATION: f/u Right Upper Lobe lesion COMPARISON: PET/CT December 02, 2022, CT November 16, 2022 DLP: 151.[address] scans at [facility] use at least one of these dose optimization techniques: automated e xposure control; mA and/or kV adjustment per patient size (includes targeted exams where dose is matc hed to clinical indication); or iterative reconstruction. FINDINGS: Moderate chronic emphysematous changes. Postoperative changes LEFT lung with parenchymal scarring sim ilar to previous. The previously described spiculated nodule RIGHT upper lobe has decreased in size s lightly since November 16, 2022 with slightly decreased soft tissue density. This measures approximat donnie 8.6 x 4.1 mm today. This demonstrated blood pool activity on the recent PET/CT. Recommend 6 month follow-up. Previously described RIGHT lower lobe 3 mm nodule is stable. No other suspicious pulmonary parenchymal abnormalities. Mild aortic calcification. Normal caliber th oracic aorta. Coronary calcification. No mediastinal or hilar lymphadenopathy. No axillary lymphadeno belinda. Incidental hepatic cysts partially visualized. CT/CT chest wo con [id number] IMPRESSION: 1. Previously described spiculated nodule RIGHT upper lobe measures slightly s maller today compared to the prior lung screening CT November 16, 2022 measurin g 8.6 x 4.1 today compared to 9.4 x 5.8 mm in maximum dimension considering dif ferences in technique. Recommend 6 month follow-up chest CT. 2. Stable 3 mm nodule RIGHT lower lobe. 3. No other significant changes.
== END 2023-03-09 13:01 | disposition home or self-care (01) ==
PROVIDERS: PCP Family Medicine; Visit Provider Internal Medicine Pulmonary Disease
DX: D49.0 Neoplasm of unspecified behavior of digestive system (principal); K76.89 Other specified diseases of liver
CPT/HCPCS: 71250

== ENCOUNTER 2023-08-30 11:32 | Outpatient (CLI) | payer MEDICARE, SELFPAY ==
--- NOTE | 2023-08-30 11:30 | MM_ITS ---
WS: [id number] BILATERAL SCREENING DIGITAL TOMOSYNTHESIS MAMMOGRAM WITH CAD HISTORY: SCREENING COMPARISON: 07/03/2022, 01/02/2022, 04/26/2021 Bilateral CC and MLO views with tomosynthesis and synthetic mammography submitted. Computer aided det ection analyzed. Breast composition: There are scattered areas of fibroglandular density. No suspicious masses, microc alcifications or architectural distortion. Benign calcifications in each breast. IMPRESSION: MM/[place] [id number] BI-RADS: 2-Benign FOLLOW UP: 1 Year Follow-up
== END 2023-08-30 11:33 | disposition home or self-care (01) ==
LOC: MOBLMAM 11:37
PROVIDERS: PCP Family Medicine; Visit Provider Family Medicine
DX: Z12.31 Encounter for screening mammogram for malignant neoplasm of breast (principal)
CPT/HCPCS: 77063; 77067

== ENCOUNTER 2023-09-17 13:45 | Outpatient (CLI) | payer MEDICARE, SELFPAY ==
--- NOTE | 2023-09-17 14:00 | CT_ITS ---
WS: [id number] CT chest wo con [id number] HISTORY: 6 month f/u TECHNIQUE: Axial imaging performed through the thorax. Coronal and sagittal reformats are submitted. All CT scans at [facility] use at least one of these dose optimization techniques: automated exposure control; mA and/or kV adjustment per patient size (includes targeted exams where dose is mat ched to clinical indication); or iterative reconstruction. CONTRAST: None DLP: 197.75 mGy.cm COMPARISON: 03/09/2023 and 11/16/2022 Lungs and central airway: Significant decrease in size of the RIGHT upper lobe pulmonary nodule since 11/16/2022. Residual nodule is 3.6 mm at its maximum diameter. Additional stable 3 mm nodule at the R IGHT lung base. There are no new masses. Focal area of postsurgical scarring LEFT upper lobe is stabl e. No recurrent mass. Pleura: Normal. No pleural effusion. Heart and pericardium: Normal size heart. Small pericardial effusion. Mediastinum and robb: No mediastinum or hilar adenopathy. Vessels: Normal size aorta. Mild atherosclerosis aorta. Coronary artery calcifications. Chest wall and lower neck: No soft tissue masses. Upper abdomen: There are a few scattered low-attenuation masses within the liver which are probably c ysts. Suprarenal aortic calcification. Osseous structures: No destructive process. IMPRESSION: 1. Continued decrease in size of the PET/CT negative nodule RIGHT upper lobe now at 3.6 mm. No additi onal follow-up necessary. 2. Stable 3 mm nodule at the RIGHT lung base. 3. Hepatic cysts. 4. Stable postsurgical changes LEFT upper lobe.
== END 2023-09-17 13:46 | disposition home or self-care (01) ==
LOC: RAD 13:47
PROVIDERS: PCP Family Medicine; Visit Provider Internal Medicine Pulmonary Disease
DX: R91.8 Other nonspecific abnormal finding of lung field (principal); Z98.890 Other specified postprocedural states
CPT/HCPCS: 71250

== ENCOUNTER 2024-07-05 06:15 | Inpatient (IN) | payer MEDICARE, SELFPAY ==
[2024-07-05] VITALS (17 sets, daily range): BP systolic 100–143; BP diastolic 58–81; PULSE 81–129; RESP 18–35; TEMP 36.3–37.1; O2SAT 90–100; BMI 16.0; BMI 16.2
--- NOTE | 2024-07-05 06:30 | XRR_ITS ---
PROCEDURE INFORMATION: Exam: XR Chest Exam date and time: 07/05/2024 6:36 AM Age: 68 years old Clinical indication: Cough and shortness of breath; Patient HX: C/O cough with SOB. History of copd. ; Additional info: Dyspnea/cough TECHNIQUE: Imaging protocol: Radiologic exam of the chest. Views: 1 view. COMPARISON: CT chest con [id number] 09/17/2023 1:55 PM FINDINGS: Lungs: Sequela of COPD with hyperinflated lungs and biapical scarring. Scattered calcified granulomas noted. Peribronchial wall thickening. No consolidation. Pleural spaces: Unremarkable. No pleural effusion. No pneumothorax. Heart/Mediastinum: No cardiomegaly. Bones/joints: Unremarkable. XR/XR chest 1V portable [id number] IMPRESSION: Sequela of COPD and bronchitis.
--- NOTE | 2024-07-05 06:38 | PC.NURSE ---
Given verbal order per Dr Zuniga to put in order for 1mg Ativan IVP once.
[2024-07-05] MEDS: LORazepam 2 mg/mL INJ 1 mL 1 MG IVP (06:42)
--- NOTE | 2024-07-05 06:42 | ED_ITS ---
HPI - SOB/Dyspnea 2 General: Chief Complaint: Shortness of Breath/Dyspnea Stated Complaint: SOB/ ANXIETY Time Seen by Provider: 07/05/24 06:21 History of Present Illness: HPI Narrative: 68-year-old female with a history of [employer] D presents to the emergency room with complaints of shortness of breath and anxiety nonproductive cough. She states she has been sick for several days she has been through a couple courses of antibiotics Zithromax and another antibiotic she is also recently treated with fluconazole because of a oral thrush as a result of antibiotic treatment. She is not typically on oxygen. Associated symptoms: Reports chest congestion; Deny abdominal pain, chest pain or fever(s) Related Data Home Medications Medication Instructions Recorded Confirmed cetirizine 10 mg tablet (Zyrtec) 10 mg PO DAILY PRN Shortness Of 06/03/21 01/16/24 Breath Previous Rx's Medication Instructions Recorded fluticasone fur. 100 mcg-umeclid 1 inh inhalation DAILY #180 ea 07/18/23 62.5 mcg-vilant 25 mcg inhalat.powder (Trelegy Ellipta) albuterol sulfate 2.5 mg/3 mL 2.5 mg (3 mL) inhalation Q6H PRN 01/16/24 (0.083 %) solution for nebulization shortness of breath or wheezing #180 mL albuterol sulfate 90 mcg/actuation 2 puff inhalation Q6H PRN 01/16/24 aerosol inhaler shortness of breath or wheezing #8.5 grams Allergies Allergy/AdvReac Type Severity Reaction Status Date / Time penicillin V [From Pen-Vee K] Allergy Severe swelling Verified 01/16/24 09:57 pseudoephedrine Allergy Mild tongue Verified 01/16/24 09:57 [From Sudafed] swelling azithromycin Allergy ALGY-Bliste Verified 07/05/24 10:34 r Jilnlcv-VYQ-EjS Reductase Allergy Unknown Verified 01/16/24 09:57 Inhibitor Review of Systems 2 Const: Denies: fever(s) or chills Card: Denies: chest pain Resp: Reports: dyspnea, non-productive cough, wheezing and chest congestion GI: Denies: abdominal pain : Denies: dysuria, urinary frequency or urinary urgency Musc: Denies: neck pain or back pain Skin/Breast: Denies: rash PFSH ED 2 PFSH: Medical History Hyperlipemia History of ectopic Pulmonary cryptococcosis Colon polyps Lung mass Surgical History deliv NOS-unsp Family History Father CAD (coronary artery disease) Cancer Hyperlipidemia Mother Lung disease Grandmother Stroke Denies family history of Diabetes Dementia Psychiatric illness Chronic kidney disease (CKD) Suicide Hypertension Social History Smoking and tobacco/nicotine status: current every day tobacco/nicotine user cigarettes Packs smoked per day: 1.5 Years cigarettes smoked: 50 Alcohol intake: never Substance/Drug Use: never Lives independently: Yes Household members: spouse Housing: House Marital status: Number of children: 3 Pets and animals: Yes Physical Exam 2 Const: COMMON NORMALS: no acute distress GENERAL APPEARANCE: cooperative and comfortable ORIENTATION/CONSCIOUSNESS: Yes awake, Yes oriented to person, Yes oriented to place and Yes oriented to time HENMT: COMMON NORMALS: normocephalic, atraumatic and hearing grossly normal bilaterally HEAD & SCALP: normocephalic and atraumatic Resp: COMMON NORMALS: normal respiratory effort, No retractions and No use of accessory muscles AUSCULTATION: wheezes Cardio: COMMON NORMALS: regular rate, regular rhythm and No murmurs present (Cardio) RATE: regular rate RHYTHM: regular rhythm GI: COMMON NORMALS: Soft to palpation and No hepatosplenomegaly present A USCULTATION: Yes normoactive bowel sounds PALPATION: Yes Soft to palpation, No Tenderness to palpation present (GI), No Guarding due to palpation present (GI) and Yes No hepatosplenomegaly present Extremity: COMMON NORMALS: normal to inspection, capillary refill normal, no clubbing, cyanosis or edema, no calf tenderness and no pedal edema Neuro: SENSORIUM/ORIENTATION: Yes oriented to person, Yes oriented to place and Yes oriented to time Skin: COMMON NORMALS: no rashes or lesions noted GENERAL SKIN EXAM: no rashes or lesions noted Course 2 Vital Signs: Vital signs: Vital Signs Temperature 97.6 F 07/05/24 12:00 Pulse Rate 108 H 07/05/24 12:00 Respiratory Rate 35 H 07/05/24 12:00 Blood Pressure 143/75 07/05/24 12:00 Pulse Oximetry 99 07/05/24 12:00 Oxygen Delivery Me thod Nasal Cannula 07/05/24 12:00 Oxygen Flow Rate 2 07/05/24 11:14 MDM - SOB/Dyspnea Medical Decision Making Patient improved after DuoNeb and dexamethasone. However second troponin was markedly elevated +15 she not having any chest pain at this time she is having increasing shortness of breath recently with activity. No known history of coronary disease possibilities include a STEMI with minimal symptoms the other possibility would be right heart strain from pulmonary hypertension due to her COPD. Will admit for further evaluation discussed with hospitalist and cardiology. Orders written. Medical Records I reviewed the patient's medical records. Lab Data I reviewed the patient's lab results. 07/05/24 06:26 07/05/24 06:26 Labs/Radiology: Radiology Impressions Chest X-Ray 07/05/24 06:30 IMPRESSION: Sequela of COPD and bronchitis. Laboratory Results WBC 7.50 10^3/uL (3.29-11.43) 07/05/24 06:26 RBC 5.22 10^6/uL (3.85-5.65) 07/05/24 06:26 Hgb 15.40 g/dL (11.27-16.99) 07/05/24 06:26 Hct 45.3 % (36-47) 07/05/24 06:26 MCV 86.8 fl (85-98) 07/05/24 06:26 MCH 29.5 pg (27-33) 07/05/24 06:26 MCHC 34.0 g/dL (30-55) 07/05/24 06:26 RDW 12.2 % (12.1-15.1) 07/05/24 06:26 Plt Count 369 10^3/cmm (157-399) 07/05/24 06:26 MPV 9.4 fL (7.4-10.4) 07/05/24 06:26 Neut % (Auto) 51.9 % 07/05/24 06:26 Lymph % (Auto) 31.1 % 07/05/24 06:26 Nicholas % (Auto) 9.9 % 07/05/24 06:26 Eos % (Auto) 5.9 % 07/05/24 06:26 Baso % (Auto) 0.9 % 07/05/24 06:26 Neut # (Auto) 3.90 10^3/uL (1.8-7.7) 07/05/24 06:26 Lymph # (Auto) 2.3 10^3/uL (0.8-4.8) 07/05/24 06:26 Nicholas # (Auto) 0.7 10^3/uL (0.2-0.9) 07/05/24 06:26 Eos # (Auto) 0.4 10^3/uL (0.0-0.8) 07/05/24 06: Baso # (Auto) 0.1 10^3/uL (0.0-0.1) 07/05/24 06:26 Nucleated RBC % (auto) 0 % 07/05/24 06: Nucleated RBCs # 0.0 /100WBC 07/05/24 06:26 Specimen Type Arterial 07/05/24 06:32 Sample Site Brachial, right 07/05/24 06:32 ABG pH 7.43 (7.35-7.45) 07/05/24 06:32 ABG pCO2 42.3 mmHg (35-45) 07/05/24 06:32 ABG pO2 59.6 mmHg (80.0-100.0) L 07/05/24 06:32 ABG PO2/FiO2 Ratio 283 07/05/24 06:32 ABG HCO3 27.8 mmol/L (22-26) H 07/05/24 06:32 ABG O2 Saturation 92.6 07/05/24 06:32 ABG Base Excess 3.0 mmol/L (-2.0-2.0) H 07/05/24 06:32 Jeison Test N/a 07/05/24 06:32 A-a O2 Gradient 5.0 mmHg (5-10) 07/05/24 06:32 Hematocrit 47.7 % (37-47) H 07/05/24 06:32 Hgb O2 Saturation 89.6 % (95-100) L 07/05/24 06:32 Carboxyhemoglobin 2.3 %THgb (0.4-20.1) 07/05/24 06:32 Methemoglobin 1.0 % (0.4-1.5) 07/05/24 06:32 Total Hemoglobin 15.6 g/dL (12-16) 07/05/24 06:32 Sodium 139.0 mmol/L (131-143) 07/05/24 06:32 Potassium 3.7 mmol/L (3.5-5.0) 07/05/24 06:32 Glucose 115.0 mg/dL (70-115) 07/05/24 06:32 Ionized Calcium 1.2 mmol/L (1.1-1.4) 07/05/24 06:32 O2 Delivery Device Room air 07/05/24 06:32 FiO2 21.0 % 07/05/24 06:32 Adaptive Physical Education Teacher ID Ed 07/05/24 06:32 Sodium 138 mmol/L (136-145) 07/05/24 06:26 Potassium 3.7 mmol/L (3.5-5.1) 07/05/24 06:26 Chloride 98 mmol/L (98-107) 07/05/24 06:26 Carbon Dioxide 29 mmol/L (22-29) 07/05/24 06:26 Anion Gap 14.7 (5-19) 07/05/24 06:26 BUN 10 mg/dL (8-23) 07/05/24 06:26 Creatinine 0.6 mg/dL (0.5-0.9) 07/05/24 06:26 GFR Calculation 99.7 mL/min (90-130) 07/05/24 06:26 Glucose 148 mg/dL (65-115) H 07/05/24 06:26 Calculated Osmolality 288 mOsm/kg (285-295) 07/05/24 06:26 Calcium 9.2 mg/dL (8.5-10.5) 07/05/24 06:26 Magnesium 1.9 mg/dL (1.7-2.3) 07/05/24 06:26 Total Bilirubin 0.5 mg/dL (0.15-1.2) 07/05/24 06:26 AST 16 U/L (0-32) 07/05/24 06:26 ALT 12 U/L (0-33) 07/05/24 06:26 Alkaline Phosphatase 69 U/L (35-105) 07/05/24 06:26 Troponin T Baseline 12 ng/L (0-10) H 07/05/24 06:26 Troponin T 120 Minute 27.95 ng/L (0-10) H 07/05/24 08:37 Delta Troponin T 15.95 ABS# (0-10) H* 07/05/24 08:37 C-Reactive Protein 3.0 mg/L (0.0-4.9) 07/05/24 06:26 NT-Pro-B Natriuret Pep 141 pg/mL (0-125) H 07/05/24 08:37 Total Protein 7.5 g/dL (6.6-8.7) 07/05/24 06:26 Albumin 4.3 g/dL (3.5-5.2) 07/05/24 06:26 Globulin 3.2 g/dL (1.3-4.6) 07/05/24 06:26 Triglycerides 129 mg/dL (0-150) 07/05/24 06:26 Cholesterol 261 mg/dL (0-200) H 07/05/24 06:26 LDL Cholesterol, Calc 192 mg/dL (50-129) H 07/05/24 06:26 HDL Cholesterol 43 mg/dL (60-100) L 07/05/24 06:26 LDL/HDL Ratio 4.47 RATIO (0.00-3.22) H 07/05/24 06:26 Cholesterol/HDL Ratio 6.07 mg/dL (0.0-4.40) H 07/05/24 06:26 Coronavirus (PCR) Negative (Negative) 07/05/24 06:48 Influenza A (PCR) Negative (Negative) 07/05/24 06:48 Influenza Type B (PCR) Negative (Negative) 07/05/24 06:48 RSV (PCR) Negative (Negative) 07/05/24 06:48 All radiology interpretation(s) finalized by discharge Discharge Plan Discharge Patient Disposition: Admitted As Inpatient Admit Provider: Yanely Yanez Clinical Impression: COPD exacerbation, Elevated troponin Condition: Stable Coding Level of Care Code ED Vineyard Worker for Joselyn Johnson
[2024-07-05 06:43] LABS: ABG PCO2 42.3 mmHg (35-45); ABG PH Result 7.43 (7.35-7.45); Arterial Blood Gas Hematocrit 47.7 % (37-47); Blood Gas Operator Identificat ED; Blood Gas Sample Site Brachial, right; Blood Gas Sample Type Arterial; Carboxyhemoglobin 2.3 %THgb (0.4-20.1); HCO3 ABG 27.8 mmol/L (22-26); HGB O2 Sat 89.6 % (95-100); Ionized Calcium Level - ABG 1.2 mmol/L (1.1-1.4); Oxygen Device ROOM AIR; Oxygen Saturation ABG 92.6; PO2 ABG 59.6 mmHg (80.0-100.0); PO2 FiO2 Ratio Arterial Blood 283; Potassium Level - ABG 3.7 mmol/L (3.5-5.0); Total Hemoglobin 15.6 g/dL (12-16)
[2024-07-05 06:47] LABS: Basophils # 0.1 10^3/uL (0.0-0.1); Basophils % 0.9 %; Eosinophils # 0.4 10^3/uL (0.0-0.8); Eosinophils % 5.9 %; Hematocrit 45.3 % (36-47); Lymphocytes # 2.3 10^3/uL (0.8-4.8); Lymphocytes % 31.1 %; Mean Corpuscular Hemoglobin 29.5 pg (27-33); Mean Corpuscular Volume 86.8 fl (85-98); Mean Platelet Volume 9.4 fL (7.4-10.4); Monocytes # 0.7 10^3/uL (0.2-0.9); Monocytes % 9.9 %; Neutrophils % 51.9 %; Nucleated Red Blood Cells % 0 %; Platelet Count 369 10^3/cmm (157-399); Red Blood Count 5.22 10^6/uL (3.85-5.65); Red Cell Distribution Width 12.2 % (12.1-15.1)
[2024-07-05] MEDS: ipratropium-albuterol 3 mL Neb INHALATION ×3 (06:51→19:28)
--- NOTE | 2024-07-05 06:55 | ECG_ITS ---
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 Measurements Intervals [place] Rate: 101 P: 88 CO: 151 QRS: 86 QRSD: 93 T: 82 QT: 345 QTc: 448 Interpretive Statements SINUS TACHYCARDIA ABNORMAL RHYTHM ECG Compared to ECG 08/31/2021 10:59:45 Sinus rhythm no longer present ST (T wave) deviation no longer present Electronically Signed On 07-05-2024 21:01:43 CDT by Lio Coleman M.D. [id number] f
[2024-07-05 07:24] LABS: Alanine Aminotransferase 12 U/L (0-33); Albumin Level 4.3 g/dL (3.5-5.2); Alkaline Phosphatase 69 U/L (35-105); Anion Gap 14.7 (5-19); Aspartate Amino Transferase 16 U/L (0-32); Blood Urea Nitrogen 10 mg/dL (8-23); Calcium 9.2 mg/dL (8.5-10.5); Carbon Dioxide 29 mmol/L (22-29); Chloride 98 mmol/L (98-107); Creatinine Clr Calc Pharmacy 41.5336; Globulin 3.2 g/dL (1.3-4.6); Glomerular Filtration Rate 99.7 mL/min (90-130); Glucose 148 mg/dL (65-115); Osmolality Calculated 288 mOsm/kg (285-295); Potassium 3.7 mmol/L (3.5-5.1); Sodium 138 mmol/L (136-145); Total Bilirubin 0.5 mg/dL (0.15-1.2); Total Protein 7.5 g/dL (6.6-8.7); Troponin(5th) Baseline 12 ng/L (0-10)
[2024-07-05 07:35] LABS: Covid PCR NEGATIVE (Negative); Influenza A NEGATIVE (Negative); Influenza B NEGATIVE (Negative); Respiratory Syncytial Virus Ce NEGATIVE (Negative)
--- NOTE | 2024-07-05 08:39 | PC.NURSE ---
Patient's came to me asking to speak with the doctor. I gave the patient and the an update on their tests and what medications we gave the patient. Physician was updated. I spoke with the patient and her again and the is still insisting they would like to speak with the doctor regarding medications.
[2024-07-05 09:03] LABS: Troponin 5 2HR 27.95 ng/L (0-10)
[2024-07-05 09:05] LABS: Troponin 5 2HR Delta 15.95 ABS# (0-10)
--- NOTE | 2024-07-05 09:08 | ECG_ITS ---
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 Measurements Intervals [place] Rate: 96 P: 83 CA: 144 QRS: 85 QRSD: 98 T: 81 QT: 345 QTc: 438 Interpretive Statements SINUS RHYTHM MINIMAL ST DEPRESSION [0.025+ mV ST DEPRESSION] Compared to ECG 07/05/2024 07:33:19 ST (T wave) deviation now present Sinus tachycardia no longer present Electronically Signed On 07-05-2024 21:19:02 CDT by Lio Coleman M.D. [id number]
--- NOTE | 2024-07-05 09:17 | USCV_ITS ---
Issac, Kim Age: 68 Gender: F : 1955 Exam Date: 07/05/2024 14:21 Ordering Phys: Beau Zuniga DO Technologist: Quan Bond Exam Location: [facility] [place] Indication: nstemi BP: 243 / 75 HR: 72 Rhythm: Sinus Technical Quality: Adequate MEASUREMENTS (Male / Female) Normal Values 2D ECHO LV Diastolic Diameter PLAX 4.0 cm 4.2 - 5.9 / 3.9 - 5.3 cm IVS Diastolic Thickness 1.0 cm 0.6 - 1.0 / 0.6 - 0.9 cm IVS Systolic Thickness 1.2 cm LVPW Diastolic Thickness 1.1 cm 0.6 - 1.0 / 0.6 - 0.9 cm LVPW Systolic Thickness 1.7 cm LVOT Diameter 2.1 cm LV Ejection Fraction 2D Teich 60.9 % LV Ejection Fraction MOD 4C 64.8 % LV Ejection Fraction MOD 2C 65.9 % LV Ejection Fraction 2C AL 67.5 % LA Diameter 3.0 cm RA Systolic Volume 4C AL 11.5 ml RA Systolic Volume 4C MOD 11.4 ml LA Sys Volume AL 18.0 cm cubed LA Sys Volume Index AL 14.0 cm cubed/m squared Aorta at Sinotubular Diameter 2.6 cm M-MODE LA Ao Ratio MM 1.1 AV Cusp Separation MM 1.6 cm DOPPLER AV Peak Velocity 120.0 cm/s LVOT Peak Velocity 72.0 cm/s AV Area Cont Eq vti 1.8 cm squared AV Area Cont Eq pk 2.0 cm squared MV Peak Velocity 110.0 cm/s MV Area PHT 4.4 cm squared Mitral E to A Ratio 0.9 TV Peak Velocity 214.0 cm/s TR Peak Velocity 275.0 cm/s TR Peak Gradient 30.3 mmHg TR Mean Velocity 238.0 cm/s TR Mean Gradient 23.3 mmHg TR Velocity Time Integral 77.8 cm PV Peak Velocity 58.0 cm/s RV Ejection Time 0.3 s FINDINGS Left Ventricle Normal left ventricular size, systolic function and wall thickness, with no regional wall motion abnormalities. Normal left ventricular wall thickness. Normal diastolic filling pattern. Right Ventricle The right ventricle is normal in size and function. Right Atrium The right atrium is normal in size. Left Atrium The left atrium is normal in size. Mitral Valve No gross abnormalities noted Aortic Valve Thickened aortic valve. Tricuspid Valve Trace tricuspid valve regurgitation. Estimated pulmonary artery peak systolic pressure 30 mmHg Pulmonic Valve No gross abnormalities noted Pericardium Normal pericardium without effusion. Aorta Normal ascending aorta dimension. IVC The inferior vena cava appears normal. CONCLUSIONS Normal left ventricular size, systolic function and wall thickness, with no regional wall motion abnormalities. Normal left ventricular wall thickness. Normal diastolic filling pattern. Trace tricuspid valve regurgitation. Estimated pulmonary artery peak systolic pressure 30 mmHg. There is no pericardial effusion. There are no intracardiac masses. No similar previous studies are available for comparison Dr Lio Coleman MD FACC (Electronically Signed) Final Date: 05 July 2024 15:11 S
[2024-07-05] MEDS: aspirin 81 mg Chew Tablet 324 MG PO (09:20)
[2024-07-05] MEDS: heparin 5,000 unit/mL INJ 1 mL IVP (09:21)
[2024-07-05] MEDS: heparin drip 25,000 UNIT/500 ML PREMIX 10 UNIT IV (09:32)
--- NOTE | 2024-07-05 09:43 | PC.NURSE ---
heparin drip was started at 10mls per hour per verbal order from Dr. Zuniga d/t pts weight being 38.555kg and the lowest our protocol goes is 42kg. provider present in room when drip was started.
[2024-07-05 09:45] LABS: NT Pro B Type Natriuretic Pept 141 pg/mL (0-125)
[2024-07-05] MEDS: sodium chloride 0.9% 1,000 ML 100 ML IV ×2 (10:41→21:19)
--- NOTE | 2024-07-05 10:47 | PM.HP ---
Providers/Chief Complaint Admitting Physician: Yanely Yanez MD Primary Care Provider: Jai Stone Chief Complaint: SOB/ ANXIETY History of Present Illness Lara Davenport is a 68 year old female with past medical history of COPD/centrilobular emphysema, Cavitary spiculated lesion with bronchiectasis in the superior segment left lower lobe measuring 2.0 x 0.9 x 1.0 CM abutting the pleura with associated pleural thickening- - s/p left lower lobe superior segmentectomy and wedge resection of the apical posterior segment of the left upper lobe., active smoker, smokes 1.5 packs/day for 50 years, hyperlipidemia presented with worsening shortness of breath. As per the patient she has not been doing well since last 2 months and has been on antibiotics off and on for bronchitis/COPD exacerbation. She stopped taking antibiotics 1 month ago when she developed oral thrush and has been treated with antifungal treatment for the last 2 weeks. She is doing better with in terms of thrush but reports having worsening of shortness of breath, generalized weakness and not feeling well. She is still an active smoker. She does not use oxygen therapy at home but has noticed having low oxygen saturation recently. Denies any complaint of fever, cold, chest pain, palpitations, dizziness, bowel or urinary complaints. She lives at home with her and has been able to do her ADLs until 2 months ago, but since last 2 months she has been having generalized weakness. As per the patient she had cardiac workup done 2 years ago when she had a lung surgery and everything was normal as per the patient. Review of Systems General: Reports: 10 or more systems reviewed and unremarkable except in HPI and below Medications/Allergies Home Medications Medication Instructions Recorded Confirmed Last Taken Type cetirizine 10 mg tablet (Zyrtec) 10 mg PO DAILY PRN Shortness Of 06/03/21 01/16/24 09/04/21 History Breath fluticasone fur. 100 mcg-umeclid 1 inh inhalation DAILY #180 ea 07/18/23 01/16/24 Unknown Rx 62.5 mcg-vilant 25 mcg inhalat.powder (Trelegy Ellipta) albuterol sulfate 2.5 mg/3 mL 2.5 mg (3 mL) inhalation Q6H PRN 01/16/24 01/16/24 Unknown Rx (0.083 %) solution for nebulization shortness of breath or wheezing #180 mL albuterol sulfate 90 mcg/actuation 2 puff inhalation Q6H PRN 01/16/24 01/16/24 Unknown Rx aerosol inhaler shortness of breath or wheezing #8.5 grams Allergies Allergy/AdvReac Type Severity Reaction Status Date / Time penicillin V [From Pen-Vee K] Allergy Severe swelling Verified 01/16/24 09:57 pseudoephedrine Allergy Mild tongue Verified 01/16/24 09:57 [From Sudafed] swelling azithromycin Allergy ALGY-Bliste Verified 07/05/24 10:34 r Nenmusj-VPA-IvP Reductase Allergy Unknown Verified 01/16/24 09:57 Inhibitor PFSH Acute PFSH: Medical History Hyperlipemia History of ectopic Pulmonary cryptococcosis Colon polyps Lung mass Surgical History deliv NOS-unsp Family History Father CAD (coronary artery disease) Cancer Hyperlipidemia Mother Lung disease Grandmother Stroke Denies family history of Diabetes Dementia Psychiatric illness Chronic kidney disease (CKD) Suicide Hypertension Social History Smoking and tobacco/nicotine status: current every day tobacco/nicotine user cigarettes Packs smoked per day: 1.5 Years cigarettes smoked: 50 Alcohol intake: never Substance/Drug Use: never Lives independently: Yes Household members: spouse Housing: House Marital status: Number of children: 3 Pets and animals: Yes Vitals/I&O/Wt Last Vital Signs Temp 98.7 F 07/05/24 06:15 Pulse 103 H 07/05/24 10:15 Resp 26 H 07/05/24 10:15 BP 113/81 07/05/24 10:15 Pulse Ox 95 07/05/24 10:15 O2 Del Method Room Air 07/05/24 06:49 O2 Flow Rate 2 07/05/24 06:15 Weight last 48 hrs Weight 38.555 kg Physical Exam Narrative: She is alert awake oriented x 3, cachectic, not in acute distress, saturating 95% on 2 L nasal cannula Lungs bilateral mild wheezing present, air entry decreased bilaterally Cardiovascular normal heart sounds Abdomen soft nontender nondistended normal bowel sounds Extremities no edema noted bilateral lower extremity Data 07/05/24 06:26 07/05/24 06:26 A&P Assessment and plan (1) COPD with acute bronchitis: (2) Physical deconditioning: (3) Cigarette smoker: Plan Lara Davenport is a 68 year old female with past medical history of COPD/centrilobular emphysema, Cavitary spiculated lesion with bronchiectasis in the superior segment left lower lobe measuring 2.0 x 0.9 x 1.0 CM abutting the pleura with associated pleural thickening- - s/p left lower lobe superior segmentectomy and wedge resection of the apical posterior segment of the left upper lobe., active smoker, smokes 1.5 packs/day for 50 years, hyperlipidemia presented with worsening shortness of breath likely secondary to COPD exacerbation. # Shortness of breath likely secondary to COPD exacerbation vs ACS- Chest x-ray consistent with COPD/bronchitis, no leukocytosis Respiratory panel negative Will do IV methylprednisolone 40 mg every 8 hours DuoNebs every 6 hours Continue supplemental oxygen to keep saturation more than 90% Will need home evaluation for oxygen use. Will do IV azithromycin 500 mg daily 2 sets of troponins 12, 27. Follow-up 6-hour troponins Check 2D echo Cardiology consulted in ER. Follow-up for further recommendations Will do therapeutic dose of Lovenox 40 mg twice daily. Discontinue IV heparin drip Educated and counseled about smoking cessation DVT prophylaxis, already on therapeutic Lovenox GI prophylaxis with IV Pepcid 20 mg twice daily CODE STATUS discussed with the patient she is limited resuscitation Pain control with p.o. Tylenol and Percocet as needed PT eval and treat. Attestations Medical Necessity Statement*: She needs continued hospitalization anticipating crossing 2 midnights for management of COPD exacerbation and management and workup for acute coronary syndrome. Time Spent in Patient Care: 50minutes Coding Level of Care Code Acute Code for [facility] Fwd Diagnoses COPD with acute bronchitis J44.0; J20.9 Physical deconditioning R53.81 Cigarette smoker F17.210 Time Spent (min) 50
[2024-07-05] MEDS: lanolin oint 7 gm 1 APPLIC TOPICAL (10:55)
[2024-07-05] MEDS: methylPREDNISolone sod succ 40 mg/mL INJ IVP ×2 (11:26→18:03)
[2024-07-05] MEDS: famotidine 20 mg/2 mL INJ IVP ×2 (11:26→23:15)
[2024-07-05 11:49] LABS: Magnesium 1.9 mg/dL (1.7-2.3)
--- NOTE | 2024-07-05 12:11 | PM.CONSULT ---
Providers/Reason For Consult Consulting Physician/Specialty*: ROLF Coleman MD/cardiology Reason for Consult*: Patient with respiratory distress and elevated troponin T Requesting Physician: Dr. Yanez Attending Physician: Yanely Yanez MD Primary Care Provider: Jai Stone History of Present Illness History of Present Illness Lara Davenport is a 68 year old female with a history of COPD, cryptococcal lung disease, is presenting with worsening shortness of breath/respiratory distress. She was found to have elevated troponin T with a significant delta at 2 hours. Cardiology consult is requested for further cardiac evaluation recommendations. This patient has a longstanding history of heavy smoking abuse, 1-1/2 pack a day for 50 years or so. She is known to have COPD and is on multiple bronchodilator treatment. For the last 2 months, she been having shortness of breath and cough. She had 2 courses of antibiotic treatment for possible upper respiratory infection. During the second course, because of the allergy reaction, she had to stop the medication. She also is being treated for oral thrush with antifungal agents. According to the patient, this morning the breathing got worse. She was finding it difficult to take a breath. She will lie down in front of the freezer to get some cold air. She also used rescue inhalers. Her called the ambulance to bring her to the hospital. She was given breathing treatment by the nebulizer in the emergency room. She is feeling somewhat better at this time. She never had any chest pain. Apparently had some cardiac workup prior to her lung surgery 2 years ago. These tests were essentially unremarkable. She has no history for hypertension, diabetes, dyslipidemia, kidney disease, liver disease or bleeding disorders. History of heavy smoking abuse as mentioned above. No alcohol abuse or any other substance abuse. Her father had a coronary artery bypass surgery in his late 50s or early 60s. No other relevant family history. 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 This was complicated by postsurgical air leak for which she had thoracic vent for a while. She had a multiple CT chest in the past which revealed coronary calcification. Review of Systems Narrative: CONSTITUTIONAL: No fever or chills. EYES: No blurring of vision or other visual disturbances lately. ENT: No hoarseness of voice, auditory disturbances or sore throat. CARDIOVASCULAR: As mentioned above. RESPIRATORY: As mentioned above GASTROINTESTINAL: No hematemesis or melena. GENITOURINARY: No dysuria or hematuria. INTEGUMENTARY: No skin rashes or history of skin cancer. NEURO: No transient ischemic attacks or amaurosis. PSYCHIATRIC: No history of psychosis or major depression. HEMATOLOGIC: No bleeding disorders or significant anemia. ENDOCRINE: No history of polyuria or polydipsia. MUSCULOSKELETAL: No recent joint pain or swelling. ALLERGY/IMMUNOLOGY: As mentioned above. Medications/Allergies Home Medications Medication Instructions Recorded Confirmed Last Taken Type cetirizine 10 mg tablet (Zyrtec) 10 mg PO DAILY PRN Shortness Of 06/03/21 01/16/24 09/04/21 History Breath fluticasone fur. 100 mcg-umeclid 1 inh inhalation DAILY #180 ea 07/18/23 01/16/24 Unknown Rx 62.5 mcg-vilant 25 mcg inhalat.powder (Trelegy Ellipta) albuterol sulfate 2.5 mg/3 mL 2.5 mg (3 mL) inhalation Q6H PRN 01/16/24 01/16/24 Unknown Rx (0.083 %) solution for nebulization shortness of breath or wheezing #180 mL albuterol sulfate 90 mcg/actuation 2 puff inhalation Q6H PRN 01/16/24 01/16/24 Unknown Rx aerosol inhaler shortness of breath or wheezing #8.5 grams Allergies Allergy/AdvReac Type Severity Reaction Status Date / Time penicillin V [From Pen-Vee K] Allergy Severe swelling Verified 01/16/24 09:57 pseudoephedrine Allergy Mild tongue Verified 01/16/24 09:57 [From Sudafed] swelling azithromycin Allergy ALGY-Bliste Verified 07/05/24 10:34 r Yrrcykw-DEG-LfI Reductase Allergy Unknown Verified 01/16/24 09:57 Inhibitor Current Medications Generic Name Dose Route Start Last Admin Trade Name Freq PRN Reason Stop Dose Admin Famotidine 20 mg 07/05/24 11:00 07/05/24 11:26 Famotidine 20 Mg/2 Ml Inj IVP 20 mg Q12H PEG Administration Sodium Chloride 1,000 mls @ 100 mls/hr 07/05/24 10:10 07/05/24 10:41 Sodium Chloride 0.9% IV 100 mls/hr .Q10H PEG Administration Lanolin 1 applic 07/05/24 10:35 07/05/24 10:55 Lanolin Oint 7 Gm TOPICAL 1 applic PRN PRN Administration DRYNESS Methylprednisolone Sodium Succinate 40 mg 07/05/24 11:00 07/05/24 11:26 Methylprednisolone Sod Succ 40 Mg/Ml Inj IVP 40 mg Q8H PEG Administration PFSH Acute PFSH: Medical History Hyperlipemia History of ectopic Pulmonary cryptococcosis Colon polyps Lung mass Surgical History deliv NOS-unsp Family History Father CAD (coronary artery disease) Cancer Hyperlipidemia Mother Lung disease Grandmother Stroke Denies family history of Diabetes Dementia Psychiatric illness Chronic kidney disease (CKD) Suicide Hypertension Social History Smoking and tobacco/nicotine status: current every day tobacco/nicotine user cigarettes Packs smoked per day: 1.5 Years cigarettes smoked: 50 Alcohol intake: never Substance/Drug Use: never Lives independently: Yes Household members: spouse Housing: House Marital status: Number of children: 3 Pets and animals: Yes Vitals/I&O/Wt Last Vital Signs Temp 98.7 F 07/05/24 06:15 Pulse 103 H 07/05/24 10:15 Resp 26 H 07/05/24 10:15 BP 113/81 07/05/24 10:15 Pulse Ox 97 07/05/24 11:14 O2 Del Method Nasal Cannula 07/05/24 11:14 O2 Flow Rate 2 07/05/24 11:14 Weight last 48 hrs Weight 85 lb Physical Exam Narrative: GENERAL: The patient is alert and oriented times three. Not in any acute distress. Slightly tachypneic. HEENT: No significant pallor, icterus or lymphadenopathy.Oral cavity: There are no mucous membrane lesions. NECK: Trachea appears to be central. No masses noted. No JVD or thyromegaly appreciated. RESPIRATORY: Chest is symmetrical. No intercostals muscle retraction or any accessory muscle activation. There is no chest wall tenderness. Breath sounds are heard bilaterally. Occasional coarse crackles. Diminished intensity of breath sounds bilaterally. BREASTS: Deferred. HEART: The heart sounds are normal. No S3 or S4. No significant murmurs. No pericardial rub ABDOMEN: No vessel pulsations or distention. No tenderness. No organomegaly appreciated. Bowel sounds are normally heard. : Deferred. RECTAL: Deferred. LYMPHATIC: No lymphadenopathy noted in the neck. EXTREMITIES: No edema or cyanosis. No clubbing. MUSCULOSKELETAL: No acute joint deformities or swelling SKIN: There are no significant rashes or ecchymosis NEUROPSYCHIATRIC: The patient is alert and oriented x3. Appears to be in a good mood. No tremors or rigidity noted. Data 07/05/24 06:26 07/05/24 06:26 Other Labs: Laboratory Last Values WBC 7.50 10^3/uL (3.29-11.43) 07/05/24 06:26 RBC 5.22 10^6/uL (3.85-5.65) 07/05/24 06:26 Hgb 15.40 g/dL (11.27-16.99) 07/05/24 06:26 Hct 45.3 % (36-47) 07/05/24 06:26 MCV 86.8 fl (85-98) 07/05/24 06:26 MCH 29.5 pg (27-33) 07/05/24 06:26 MCHC 34.0 g/dL (30-55) 07/05/24 06:26 RDW 12.2 % (12.1-15.1) 07/05/24 06:26 Plt Count 369 10^3/cmm (157-399) 07/05/24 06:26 MPV 9.4 fL (7.4-10.4) 07/05/24 06:26 Neut % (Auto) 51.9 % 07/05/24 06:26 Lymph % (Auto) 31.1 % 07/05/24 06:26 [place] % (Auto) 9.9 % 07/05/24 06:26 Eos % (Auto) 5.9 % 07/05/24 06:26 Baso % (Auto) 0.9 % 07/05/24 06:26 Neut # (Auto) 3.90 10^3/uL (1.8-7.7) 07/05/24 06:26 Lymph # (Auto) 2.3 10^3/uL (0.8-4.8) 07/05/24 06:26 [place] # (Auto) 0.7 10^3/uL (0.2-0.9) 07/05/24 06:26 Eos # (Auto) 0.4 10^3/uL (0.0-0.8) 07/05/24 06:26 Baso # (Auto) 0.1 10^3/uL (0.0-0.1) 07/05/24 06:26 Nucleated RBC % (auto) 0 % 07/05/24 06:26 Nucleated RBCs # 0.0 /100WBC 07/05/24 06:26 Specimen Type Arterial 07/05/24 06:32 Sample Site Brachial, right 07/05/24 06:32 ABG pH 7.43 (7.35-7.45) 07/05/24 06:32 ABG pCO2 42.3 mmHg (35-45) 07/05/24 06:32 ABG pO2 59.6 mmHg (80.0-100.0) L 07/05/24 06:32 ABG PO2/FiO2 Ratio 283 07/05/24 06:32 ABG HCO3 27.8 mmol/L (22-26) H 07/05/24 06:32 ABG O2 Saturation 92.6 07/05/24 06:32 ABG Base Excess 3.0 mmol/L (-2.0-2.0) H 07/05/24 06:32 Jeison Test N/a 07/05/24 06:32 A-a O2 Gradient 5.0 mmHg (5-10) 07/05/24 06:32 Hematocrit 47.7 % (37-47) H 07/05/24 06:32 Hgb O2 Saturation 89.6 % (95-100) L 07/05/24 06:32 Carboxyhemoglobin 2.3 %THgb (0.4-20.1) 07/05/24 06:32 Methemoglobin 1.0 % (0.4-1.5) 07/05/24 06:32 Total Hemoglobin 15.6 g/dL (12-16) 07/05/24 06:32 Sodium 139.0 mmol/L (131-143) 07/05/24 06:32 Potassium 3.7 mmol/L (3.5-5.0) 07/05/24 06:32 Glucose 115.0 mg/dL (70-115) 07/05/24 06:32 Ionized Calcium 1.2 mmol/L (1.1-1.4) 07/05/24 06:32 O2 Delivery Device Room air 07/05/24 06:32 FiO2 21.0 % 07/05/24 06:32 Program Services Assistant ID Ed 07/05/24 06:32 Sodium 138 mmol/L (136-145) 07/05/24 06:26 Potassium 3.7 mmol/L (3.5-5.1) 07/05/24 06:26 Chloride 98 mmol/L (98-107) 07/05/24 06:26 Carbon Dioxide 29 mmol/L (22-29) 07/05/24 06:26 Anion Gap 14.7 (5-19) 07/05/24 06:26 BUN 10 mg/dL (8-23) 07/05/24 06:26 Creatinine 0.6 mg/dL (0.5-0.9) 07/05/24 06:26 GFR Calculation 99.7 mL/min (90-130) 07/05/24 06:26 Glucose 148 mg/dL (65-115) H 07/05/24 06:26 Calculated Osmolality 288 mOsm/kg (285-295) 07/05/24 06:26 Calcium 9.2 mg/dL (8.5-10.5) 07/05/24 06:26 Magnesium 1.9 mg/dL (1.7-2.3) 07/05/24 06:26 Total Bilirubin 0.5 mg/dL (0.15-1.2) 07/05/24 06:26 AST 16 U/L (0-32) 07/05/24 06:26 ALT 12 U/L (0-33) 07/05/24 06:26 Alkaline Phosphatase 69 U/L (35-105) 07/05/24 06:26 Troponin T Baseline 12 ng/L (0-10) H 07/05/24 06:26 Troponin T 120 Minute 27.95 ng/L (0-10) H 07/05/24 08:37 Delta Troponin T 15.95 ABS# (0-10) H* 07/05/24 08:37 C-Reactive Protein 3.0 mg/L (0.0-4.9) 07/05/24 06:26 NT-Pro-B Natriuret Pep 141 pg/mL (0-125) H 07/05/24 08:37 Total Protein 7.5 g/dL (6.6-8.7) 07/05/24 06:26 Albumin 4.3 g/dL (3.5-5.2) 07/05/24 06:26 Globulin 3.2 g/dL (1.3-4.6) 07/05/24 06:26 Coronavirus (PCR) Negative (Negative) 07/05/24 06:48 Influenza A (PCR) Negative (Negative) 07/05/24 06:48 Influenza Type B (PCR) Negative (Negative) 07/05/24 06:48 RSV (PCR) Negative (Negative) 07/05/24 06:48 Other data: CT of the chest in 2022 Lungs and central airway: Significant decrease in size of the RIGHT upper lobe pulmonary nodule since 11/16/2022. Residual nodule is 3.6 mm at its maximum diameter. Additional stable 3 mm nodule at the RIGHT lung base. There are no new masses. Focal area of postsurgical scarring LEFT upper lobe is stable. No recurrent mass. Pleura: Normal. No pleural effusion. Heart and pericardium: Normal size heart. Small pericardial effusion. Mediastinum and robb: No mediastinum or hilar adenopathy. Vessels: Normal size aorta. Mild atherosclerosis aorta. Coronary artery calcifications. Chest wall and lower neck: No soft tissue masses. Upper abdomen: There are a few scattered low-attenuation masses within the liver which are probably cysts. Suprarenal aortic calcification. Osseous structures: No destructive process. A&P Assessment and plan (1) Elevated troponin: This patient apparently has no chest pain. The EKG is unremarkable. No significant ST-T changes. However in view of the history of coronary calcification by CT chest, may be appropriate to treated as an ischemic event. Patient may be kept on therapeutic dose of Lovenox. I also may start her on a small dose of beta-marsha namely metoprolol 12.5 mg p.o. twice daily. (2) COPD exacerbation: Possibly related to possible infection. Probably need to rule out any recurrence of cryptococcosis/other fungal infections. Management as per Dr. Yanez. (3) Coronary atherosclerosis due to calcified coronary lesion: Patient was found to have coronary calcification by the CT of the chest. Her heavy smoking abuse and family history are major contributing factor's. 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 Need to rule out any recurrence Plan Will go ahead and do an echocardiogram to evaluate LV function to rule out any other pathology. May consider stress testing versus cardiac catheterization after reviewing the echocardiogram May continue on Lovenox, aspirin and a small dose of beta-marsha. Will check on the lipid profile on the blood in the lab. Based on the clinical progress, further recommendations will be made Thank you for the opportunity to evaluate this patient and make these recommendations Consult Attestations Medical Necessity Statement: Patient requires continued hospital stay for close monitoring and further management Coding Level of Care Code 17521 Diagnoses Elevated troponin R79.89 COPD exacerbation J44.1 Coronary atherosclerosis due to calcified coronary lesion I25.10; I25.84 Pulmonary cryptococcosis B45.0
[2024-07-05 12:48] LABS: Troponin 5 6HR 20.95 ng/L (0-10); Troponin 5 6HR Delta 8.95 ng/L (0-12)
--- NOTE | 2024-07-05 12:55 | ECG_ITS ---
[facility] Test Date: 2024-07-05 Pat Name: Lara Davenport Department: Room: 112 Gender: Female Planogrammer: : 1955 Requested By: Beau Sanchez Order Number: [id number] Larry MD: Lio Coleman M.D. Measurements Intervals [place] Rate: 94 P: 95 ME: 152 QRS: 81 QRSD: 97 T: 79 QT: 347 QTc: 435 Interpretive Statements SINUS RHYTHM WITH SINUS ARRHYTHMIA Compared to ECG 07/05/2024 09:08:00 ST (T wave) deviation no longer present Electronically Signed On 07-05-2024 21:19:12 CDT by Lio Coleman M.D. [id number]
[2024-07-05] MEDS: metoprolol tartrate 25 mg Tablet 12.5 MG PO ×2 (12:58→21:14)
[2024-07-05] MEDS: enoxaparin 40 mg/0.4 mL Syringe SUBCUT (12:58)
--- NOTE | 2024-07-05 13:15 | PC.PT ---
Checked with nursing about doing a PT eval today. Nurse asks for us to wait until Sunday. There is a questionable CO and will be getting an ecco.
[2024-07-05 13:23] LABS: Chol HDL Ratio 6.07 mg/dL (0.0-4.40); Cholesterol 261 mg/dL (0-200); HDL Cholesterol 43 mg/dL (60-100); LDL Cholesterol Calculated 192 mg/dL (50-129); LDL HDL Ratio 4.47 RATIO (0.00-3.22); Triglycerides 129 mg/dL (0-150)
[2024-07-05] MEDS: guaiFENesin 600 mg Tablet PO (18:03)
[2024-07-06] VITALS (17 sets, daily range): BP systolic 102–127; BP diastolic 44–58; PULSE 67–105; RESP 12–27; TEMP 36.6–36.9; O2SAT 87–99
[2024-07-06] MEDS: enoxaparin 40 mg/0.4 mL Syringe SUBCUT ×2 (00:49→13:24)
[2024-07-06] MEDS: levalbuterol 1.25 mg/3 mL Neb INHALATION ×4 (02:46→19:37)
[2024-07-06] MEDS: methylPREDNISolone sod succ 40 mg/mL INJ IVP ×3 (03:21→22:33)
[2024-07-06 04:35] LABS: Basophils % 0.3 %; Hematocrit 39.2 % (36-47); Lymphocytes # 0.7 10^3/uL (0.8-4.8); Lymphocytes % 7.4 %; Mean Corpuscular HGB Conc 33.2 g/dL (30-55); Mean Corpuscular Hemoglobin 30.1 pg (27-33); Mean Corpuscular Volume 90.7 fl (85-98); Mean Platelet Volume 8.9 fL (7.4-10.4); Monocytes # 0.5 10^3/uL (0.2-0.9); Neutrophils % 86.8 %; Nucleated Red Blood Cells % 0 %; Platelet Count 279 10^3/cmm (157-399); Red Blood Count 4.32 10^6/uL (3.85-5.65); Red Cell Distribution Width 12.2 % (12.1-15.1); White Blood Count 9.57 10^3/uL (3.29-11.43)
[2024-07-06] MEDS: guaiFENesin 100 mg/5 mL UDC 10 mL 200 MG PO (04:51)
[2024-07-06 04:55] LABS: Chol HDL Ratio 5.02 mg/dL (0.0-4.40); Cholesterol 226 mg/dL (0-200); HDL Cholesterol 45 mg/dL (60-100); LDL Cholesterol Calculated 165 mg/dL (50-129); LDL HDL Ratio 3.67 RATIO (0.00-3.22); Triglycerides 81 mg/dL (0-150)
[2024-07-06 04:57] LABS: Anion Gap 12.9 (5-19); Blood Urea Nitrogen 8 mg/dL (8-23); Calcium 8.4 mg/dL (8.5-10.5); Carbon Dioxide 21 mmol/L (22-29); Chloride 104 mmol/L (98-107); Creatinine Clr Calc Pharmacy 42.1444; Glomerular Filtration Rate 123.1 mL/min (90-130); Glucose 168 mg/dL (65-115); Magnesium 1.8 mg/dL (1.7-2.3); Osmolality Calculated 280 mOsm/kg (285-295); Potassium 3.9 mmol/L (3.5-5.1); Sodium 134 mmol/L (136-145)
[2024-07-06] MEDS: sodium chloride 0.9% 1,000 ML 100 ML IV ×2 (06:00→22:33)
[2024-07-06] MEDS: guaiFENesin 600 mg Tablet PO (09:29)
[2024-07-06] MEDS: metoprolol tartrate 25 mg Tablet 12.5 MG PO ×2 (09:29→20:45)
[2024-07-06] MEDS: aspirin 81 mg Chew Tablet PO (09:30)
--- NOTE | 2024-07-06 13:51 | P.PN_ITS ---
Subjective 2 Subjective: Patient is feeling little better. Denies any chest pain. Had some pain between the shoulder blades today lasting for few minutes and then subsided spontaneously. No other specific complaints. Medications: Medication Review Details: Current Medications Acetaminophen (Acetaminophen 325 Mg Tablet) 650 mg PO Q6H PRN PRN Reason: Mild/Mod Pain Or Temp >/= 101 Aspirin (Aspirin 81 Mg Chew Tablet) 81 mg PO DAILY [facility] Last Admin: 07/06/24 09:30 Dose: 81 mg Enoxaparin Sodium (Enoxaparin 40 Mg/0.4 Ml Syringe) 40 mg SUBCUT Q12H [facility] Last Admin: 07/06/24 13:24 Dose: 40 mg Famotidine (Famotidine 20 Mg/2 Ml Inj) 20 mg IVP Q12H [facility] Last Admin: 07/06/24 11:13 Dose: Not Given Guaifenesin (Guaifenesin 600 Mg Tablet) 600 mg PO BID [facility] Last Admin: 07/06/24 09:29 Dose: 600 mg Guaifenesin (Guaifenesin 100 Mg/5 Ml Udc 10 Ml) 200 mg PO Q4H PRN PRN Reason: COUGH AND CONGESTION Last Admin: 07/06/24 04:51 Dose: 200 mg Sodium Chloride (Sodium Chloride 0.9%) 1,000 mls @ 100 mls/hr IV .Q10H [facility] Last Admin: 07/06/24 06:00 Dose: 100 mls/hr Lanolin (Lanolin Oint 7 Gm) 1 applic TOPICAL PRN PRN PRN Reason: DRYNESS Last Admin: 07/05/24 10:55 Dose: 1 applic Levalbuterol HCl (Levalbuterol 1.25 Mg/3 Ml Neb) 1.25 mg INHALATION Q6H.RESP [facility] Last Admin: 07/06/24 13:24 Dose: 1.25 mg Methylprednisolone Sodium Succinate (Methylprednisolone Sod Succ 40 Mg/Ml Inj) 40 mg IVP Q12H [facility] Metoprolol Tartrate (Metoprolol Tartrate 25 Mg Tablet) 12.5 mg PO BID@0900,2100 [facility] Last Admin: 07/06/24 09:29 Dose: 12.5 mg Oxycodone/Acetaminophen (Oxycodone-Apap 10-325 Mg Tablet) 1 tab PO Q4H PRN PRN Reason: SEVERE PAIN Vitals/I&O/Wt Last Vital Signs Temp 98.1 F 07/06/24 11:14 Pulse 83 07/06/24 13:36 Resp 22 H 07/06/24 13:26 BP 103/57 07/06/24 11:14 Pulse Ox 95 07/06/24 13:26 O2 Del Method Nasal Cannula 07/06/24 13:26 O2 Flow Rate 2 07/06/24 13:26 07/05/24 07/06/24 07/06/24 22:59 06:59 14:59 Intake Total 1570 / 2070 1068.333 / 3138.333 120 / 120 Balance 1570 / 2070 1068.333 / 3138.333 120 / 120 Weight last 48 hrs Weight 86 lb 4 oz Weight 86 lb 4 oz Weight 85 lb Physical Exam 2 Narrative: GENERAL: The patient is alert and oriented times three. Not in any acute distress. Slightly tachypneic. HEENT: No significant pallor, icterus or lymphadenopathy.Oral cavity: There are no mucous membrane lesions. NECK: Trachea appears to be central. No masses noted. No JVD or thyromegaly appreciated. RESPIRATORY: Chest is symmetrical. No intercostals muscle retraction or any accessory muscle activation. There is no chest wall tenderness. Breath sounds are heard bilaterally. Occasional coarse crackles. Diminished intensity of breath sounds bilaterally. BREASTS: Deferred. HEART: The heart sounds are normal. No S3 or S4. No significant murmurs. No pericardial rub ABDOMEN: No vessel pulsations or distention. No tenderness. No organomegaly appreciated. Bowel sounds are normally heard. : Deferred. RECTAL: Deferred. LYMPHATIC: No lymphadenopathy noted in the neck. EXTREMITIES: No edema or cyanosis. No clubbing. MUSCULOSKELETAL: No acute joint deformities or swelling SKIN: There are no significant rashes or ecchymosis NEUROPSYCHIATRIC: The patient is alert and oriented x3. Appears to be in a good mood. No tremors or rigidity noted. Data 07/06/24 04:15 07/06/24 04:15 Other Labs: Laboratory Last Values WBC 9.57 10^3/uL (3.29-11.43) 07/06/24 04:15 RBC 4.32 10^6/uL (3.85-5.65) 07/06/24 04:15 Hgb 13.00 g/dL (11.27-16.99) 07/06/24 04:15 Hct 39.2 % (36-47) 07/06/24 04:15 MCV 90.7 fl (85-98) 07/06/24 04:15 MCH 30.1 pg (27-33) 07/06/24 04:15 MCHC 33.2 g/dL (30-55) 07/06/24 04:15 RDW 12.2 % (12.1-15.1) 07/06/24 04:15 Plt Count 279 10^3/cmm (157-399) 07/06/24 04:15 MPV 8.9 fL (7.4-10.4) 07/06/24 04:15 Neut % (Auto) 86.8 % 07/06/24 04:15 Lymph % (Auto) 7.4 % 07/06/24 04:15 Louisa % (Auto) 5.0 % 07/06/24 04:15 Eos % (Auto) 0.0 % 07/06/24 04:15 Baso % (Auto) 0.3 % 07/06/24 04:15 Neut # (Auto) 8.30 10^3/uL (1.8-7.7) H 07/06/24 04:15 Lymph # (Auto) 0.7 10^3/uL (0.8-4.8) L 07/06/24 04:15 Louisa # (Auto) 0.5 10^3/uL (0.2-0.9) 07/06/24 04:15 Eos # (Auto) 0.0 10^3/uL (0.0-0.8) 07/06/24 04:15 Baso # (Auto) 0.0 10^3/uL (0.0-0.1) 07/06/24 04:15 Nucleated RBC % (auto) 0 % 07/06/24 04:15 Nucleated RBCs # 0.0 /100WBC 07/06/24 04:15 Specimen Type Arterial 07/05/24 06:32 Sample Site Brachial, right 07/05/24 06:32 ABG pH 7.43 (7.35-7.45) 07/05/24 06:32 ABG pCO2 42.3 mmHg (35-45) 07/05/24 06:32 ABG pO2 59.6 mmHg (80.0-100.0) L 07/05/24 06:32 ABG PO2/FiO2 Ratio 283 07/05/24 06:32 ABG HCO3 27.8 mmol/L (22-26) H 07/05/24 06:32 ABG O2 Saturation 92.6 07/05/24 06:32 ABG Base Excess 3.0 mmol/L (-2.0-2.0) H 07/05/24 06:32 Jeison Test N/a 07/05/24 06:32 A-a O2 Gradient 5.0 mmHg (5-10) 07/05/24 06:32 Hematocrit 47.7 % (37-47) H 07/05/24 06:32 Hgb O2 Saturation 89.6 % (95-100) L 07/05/24 06:32 Carboxyhemoglobin 2.3 %THgb (0.4-20.1) 07/05/24 06:32 Methemoglobin 1.0 % (0.4-1.5) 07/05/24 06:32 Total Hemoglobin 15.6 g/dL (12-16) 07/05/24 06:32 Sodium 139.0 mmol/L (131-143) 07/05/24 06:32 Potassium 3.7 mmol/L (3.5-5.0) 07/05/24 06:32 Glucose 115.0 mg/dL (70-115) 07/05/24 06:32 Ionized Calcium 1.2 mmol/L (1.1-1.4) 07/05/24 06:32 O2 Delivery Device Room air 07/05/24 06:32 FiO2 21.0 % 07/05/24 06:32 Blueprint Processor ID Ed 07/05/24 06:32 Sodium 134 mmol/L (136-145) L 07/06/24 04:15 Potassium 3.9 mmol/L (3.5-5.1) 07/06/24 04:15 Chloride 104 mmol/L (98-107) 07/06/24 04:15 Carbon Dioxide 21 mmol/L (22-29) L 07/06/24 04:15 Anion Gap 12.9 (5-19) 07/06/24 04:15 BUN 8 mg/dL (8-23) 07/06/24 04:15 Creatinine 0.5 mg/dL (0.5-0.9) 07/06/24 04:15 GFR Calculation 123.1 mL/min (90-130) 07/06/24 04:15 Glucose 168 mg/dL (65-115) H 07/06/24 04:15 Calculated Osmolality 280 mOsm/kg (285-295) L 07/06/24 04:15 Calcium 8.4 mg/dL (8.5-10.5) L 07/06/24 04:15 Magnesium 1.8 mg/dL (1.7-2.3) 07/06/24 04:15 Total Bilirubin 0.5 mg/dL (0.15-1.2) 07/05/24 06:26 AST 16 U/L (0-32) 07/05/24 06:26 ALT 12 U/L (0-33) 07/05/24 06:26 Alkaline Phosphatase 69 U/L (35-105) 07/05/24 06:26 Troponin T Baseline 12 ng/L (0-10) H 07/05/24 06:26 Troponin T 120 Minute 27.95 ng/L (0-10) H 07/05/24 08:37 Delta Troponin T 15.95 ABS# (0-10) H* 07/05/24 08:37 Troponin T Hi Sens 6Hr 20.95 ng/L (0-10) H 07/05/24 12:26 Troponin T Hi Sens 6Hr Delta 8.95 ng/L (0-12) 07/05/24 12:26 C-Reactive Protein 3.0 mg/L (0.0-4.9) 07/05/24 06:26 NT-Pro-B Natriuret Pep 141 pg/mL (0-125) H 07/05/24 08:37 Total Protein 7.5 g/dL (6.6-8.7) 07/05/24 06:26 Albumin 4.3 g/dL (3.5-5.2) 07/05/24 06:26 Globulin 3.2 g/dL (1.3-4.6) 07/05/24 06:26 Triglycerides 81 mg/dL (0-150) 07/06/24 04:15 Cholesterol 226 mg/dL (0-200) H 07/06/24 04:15 LDL Cholesterol, Calc 165 mg/dL (50-129) H 07/06/24 04:15 HDL Cholesterol 45 mg/dL (60-100) L 07/06/24 04:15 LDL/HDL Ratio 3.67 RATIO (0.00-3.22) H 07/06/24 04:15 Cholesterol/HDL Ratio 5.02 mg/dL (0.0-4.40) H 07/06/24 04:15 Coronavirus (PCR) Negative (Negative) 07/05/24 06:48 Influenza A (PCR) Negative (Negative) 07/05/24 06:48 Influenza Type B (PCR) Negative (Negative) 07/05/24 06:48 RSV (PCR) Negative (Negative) 07/05/24 06:48 Other data: Echocardiogram on 07/05/2024 Normal left ventricular size, systolic function and wall thickness, with no regional wall motion abnormalities. Normal left ventricular wall thickness. Normal diastolic filling pattern. Trace tricuspid valve regurgitation. Estimated pulmonary artery peak systolic pressure 30 mmHg. There is no pericardial effusion. There are no intracardiac masses. No similar previous studies are available for comparison A&P Assessment and plan (1) Elevated troponin: This patient apparently has no chest pain. The EKG is unremarkable. No significant ST-T changes. However in view of the history of coronary calcification by CT chest, may be appropriate to treated as an ischemic event. Patient may be kept on therapeutic dose of Lovenox. I also may start her on a small dose of beta-marsha namely metoprolol 12.5 mg p.o. twice daily. The echocardiogram findings were discussed with the patient. (2) COPD exacerbation: Possibly related to possible infection. Probably need to rule out any recurrence of cryptococcosis/other fungal infections. Management as per Dr. Yanez. (3) Coronary atherosclerosis due to calcified coronary lesion: Patient was found to have coronary calcification by the CT of the chest. Her heavy smoking abuse and family history are major contributing factor's. 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 Need to rule out any recurrence Plan Since the patient's LV ejection fraction is normal with no segmental wall motion abnormalities and no specific ischemic symptoms, it may be appropriate to go ahead and do a dobutamine/sestamibi/sestamibi stress test. This was discussed with the patient in detail which is understood well and consented to proceed. So we may go ahead and do schedule the patient for this test in the morning Based on the results, further recommendations will be made. Attestations 2 Medical Necessity Statement*: Patient requires continued hospital stay for close monitoring and further management Coding Level of Care Code 26286 Diagnoses Elevated troponin R79.89 COPD exacerbation J44.1 Coronary atherosclerosis due to calcified coronary lesion I25.10; I25.84 Pulmonary cryptococcosis B45.0
--- NOTE | 2024-07-06 17:51 | P.PN_ITS ---
Subjective 2 Subjective: No acute overnight events noted. Seen her at bedside this morning. Feels better as compared to admission. Medications: Reviewed: Yes Vitals/I&O/Wt Last Vital Signs Temp 97.9 F 07/06/24 16:00 Pulse 87 07/06/24 16:00 Resp 23 H 07/06/24 16:00 BP 111/58 07/06/24 16:00 Pulse Ox 97 07/06/24 16:00 O2 Del Method Room Air 07/06/24 16:00 O2 Flow Rate 2 07/06/24 13:26 07/06/24 07/06/24 07/06/24 06:59 14:59 22:59 Intake Total 1068.333 / 3138.333 120 / 120 Balance 1068.333 / 3138.333 120 / 120 Weight last 48 hrs Weight 39.122 kg Weight 39.122 kg Weight 38.555 kg Physical Exam 2 Narrative: She is alert awake oriented x 3, cachectic, not in acute distress, saturating 95% on 2 L nasal cannula Lungs bilateral mild wheezing present, air entry decreased bilaterally Cardiovascular normal heart sounds Abdomen soft nontender nondistended normal bowel sounds Extremities no edema noted bilateral lower extremity Data 07/06/24 04:15 07/06/24 04:15 A&P Assessment and plan (1) COPD with acute bronchitis: (2) Physical deconditioning: (3) Cigarette smoker: Plan Lara Davenport is a 68 year old female with past medical history of COPD/centrilobular emphysema, Cavitary spiculated lesion with bronchiectasis in the superior segment left lower lobe measuring 2.0 x 0.9 x 1.0 CM abutting the pleura with associated pleural thickening- - s/p left lower lobe superior segmentectomy and wedge resection of the apical posterior segment of the left upper lobe., active smoker, smokes 1.5 packs/day for 50 years, hyperlipidemia presented with worsening shortness of breath likely secondary to COPD exacerbation. # Shortness of breath likely secondary to COPD exacerbation vs ACS- Chest x-ray consistent with COPD/bronchitis, no leukocytosis Respiratory panel negative Will do IV methylprednisolone 40 mg every 8 hours DuoNebs every 6 hours Continue supplemental oxygen to keep saturation more than 90% Will need home evaluation for oxygen use. Will do IV azithromycin 500 mg daily 2 sets of troponins 12, 27. Follow-up 6-hour troponins Check 2D echo Cardiology consulted in ER. Follow-up for further recommendations Will do therapeutic dose of Lovenox 40 mg twice daily. Discontinue IV heparin drip Educated and counseled about smoking cessation DVT prophylaxis, already on therapeutic Lovenox GI prophylaxis with IV Pepcid 20 mg twice daily CODE STATUS discussed with the patient she is limited resuscitation Pain control with p.o. Tylenol and Percocet as needed PT eval and treat. 07/06--Labs reviewed and are acceptable. Echo showed Normal left ventricular size, systolic function and wall thickness, with no regional wall motion abnormalities. Normal left ventricular wall thickness. Normal diastolic filling pattern. Trace tricuspid valve regurgitation. Estimated pulmonary artery peak systolic pressure 30 mmHg. There is no pericardial effusion. There are no intracardiac masses. No similar previous studies are available for comparison In view of long history of smoking and elevated troponins on admission, as per cardiology plan for stress test in a.m. she is n.p.o. past midnight. Stress test negative, anticipating discharge in a.m. Attestations 2 Medical Necessity Statement*: She needs continued hospitalization anticipating crossing 2 midnights for management of COPD exacerbation and management and workup for acute coronary syndrome with stress test Time Spent in Patient Care: 20minutes Coding Level of Care Code Acute Code for [facility] Diagnoses COPD with acute bronchitis J44.0; J20.9 Physical deconditioning R53.81 Cigarette smoker F17.210 Time Spent (min) 20
[2024-07-06] MEDS: ipratropium 0.5 mg/2.5 mL Neb INHALATION (19:37)
[2024-07-06] MEDS: acetaminophen 325 mg Tablet 650 MG PO (21:13)
--- NOTE | 2024-07-06 21:44 | PC.NURSE ---
Hat placed in patient's bathroom for accurate urinary output measurement. Patient educated on this.
[2024-07-06] MEDS: famotidine 20 mg/2 mL INJ IVP (22:33)
[2024-07-07] VITALS (12 sets, daily range): BP systolic 113–144; BP diastolic 48–67; PULSE 69–98; RESP 16–26; TEMP 36.4–36.7; O2SAT 93–98
--- NOTE | 2024-07-07 | ECG_ITS ---
[facility] Test Date: 2024-07-07 Pat Name: Lara Davenport Department: Room: 112 Gender: Female Special Agent: : [id number] Requested By: Lio Coleman Order Number: [id number] Larry MD: Lio Coleman M.D. Interpretive Statements PROCEDURE: At the baseline, the blood pressure was 129/65 with a heart rate of 81. The electrocardiogram showed normal sinus rhythm with normal ST Ts. The dobutamine was infused over a period of 8 minutes and 26-second. The maximum heart rate obtained was 163 (106% of the maximum predicted heart rate). The blood pressure at that time was 165/50 mmHg. The patient did not have any chest pain or any significant electrocardiogram changes with the dobutamine infusion. The physical examination remained unchanged. No arrhythmias were seen on the monitor. During the recovery phase, the patient did not have any specific symptoms. The blood pressure at the end of the recovery phase was 144/57 with a heart rate of 98 per minute. CONCLUSION: 1. Normal EKG response to dobutamine infusion 2. No dobutamine use chest pain or cardiac arrhythmia 3. Normal blood pressure and heart rate response to dobutamine infusion 4. Sestamibi/Sestamibi perfusion scan pending; see separate report. Lung unchanged pre/post procedure; Intraprocedure shortess of breath; Symptoms resoled by discharge Electronically Signed On 07-13-2024 19:18:26 CDT by Lio Coleman M.D. [email or web address]
--- NOTE | 2024-07-07 00:24 | PC.NURSE ---
Per chart review, patient had home o2 eval on the and qualified for home o2. Patient is currently maintaining oxygen saturation of 98 percent on 2 liters. [employer] [facility] notified.
[2024-07-07] MEDS: enoxaparin 40 mg/0.4 mL Syringe SUBCUT (00:47)
[2024-07-07] MEDS: levalbuterol 1.25 mg/3 mL Neb INHALATION ×3 (02:48→13:39)
--- NOTE | 2024-07-07 06:18 | PC.NURSE ---
Dr. Coleman notified that patient has been receiving Metoprolol 12.5 mg BID and that the cardiac stress test prep paper states Do not take beta blockers for 48 hours before for doubtamine stress test. Dr. Coleman ordered to proceed with Doubutamine stress test, but to not give 9 am dose of Metoprolol.
[2024-07-07] MEDS: guaiFENesin 100 mg/5 mL UDC 10 mL 200 MG PO (06:37)
[2024-07-07 07:02] LABS: Basophils % 0.1 %; Hematocrit 39.4 % (36-47); Lymphocytes # 0.8 10^3/uL (0.8-4.8); Lymphocytes % 4.8 %; Mean Corpuscular HGB Conc 32.7 g/dL (30-55); Mean Corpuscular Hemoglobin 29.1 pg (27-33); Mean Corpuscular Volume 88.7 fl (85-98); Mean Platelet Volume 9.2 fL (7.4-10.4); Monocytes # 0.6 10^3/uL (0.2-0.9); Monocytes % 3.8 %; Neutrophils # 14.86 10^3/uL (1.8-7.7); Neutrophils % 90.8 %; Nucleated Red Blood Cells % 0 %; Platelet Count 322 10^3/cmm (157-399); Red Blood Count 4.44 10^6/uL (3.85-5.65); Red Cell Distribution Width 12.5 % (12.1-15.1); White Blood Count 16.37 10^3/uL (3.29-11.43)
[2024-07-07 07:17] LABS: Anion Gap 10.1 (5-19); Blood Urea Nitrogen 6 mg/dL (8-23); Calcium 8.2 mg/dL (8.5-10.5); Carbon Dioxide 27 mmol/L (22-29); Chloride 104 mmol/L (98-107); Creatinine Clr Calc Pharmacy 49.0798; Glomerular Filtration Rate 123.1 mL/min (90-130); Glucose 134 mg/dL (65-115); Osmolality Calculated 284 mOsm/kg (285-295); Potassium 4.1 mmol/L (3.5-5.1); Sodium 137 mmol/L (136-145)
--- NOTE | 2024-07-07 07:38 | PC.NURSE ---
to cardiac stress test at this time,via w/c.
[2024-07-07] MEDS: DOBUTtamine 200 MG in sodium chloride 0.9% 34 ML 6.33 MG IV (07:59)
[2024-07-07] MEDS: atropine 0.1 mg/mL Syr 10 mL 0.5 MG IVP (08:05)
[2024-07-07] MEDS: metoprolol tartrate 1 mg/1 mL SDV 5 mL 5 MG IV (08:08)
--- NOTE | 2024-07-07 08:40 | PC.NURSE ---
return from stress test via w/c.tolerated procedure well
--- NOTE | 2024-07-07 09:05 | PC.PHAR ---
had to verify with pharmacy,
--- NOTE | 2024-07-07 09:39 | PC.CHAP ---
Pastoral Care Encounter/Spiritual Assessment Type of Contact [] Declined optomechanical engineer visit [] Patient/Family/Request visit [] Outpatient visit [] Follow-up visit [] Physician referral [] Code/Alert [x] Routine visit [] Staff referral [] Actively dying [] Patient sleeping [] Family support [] [] Out of room [] Palliative care [] [] Receiving care in room [] Pre-surgical visit [] Trauma [] Long length of stay [] ICU visit [] Other: Relational/Emotional Strength [] Patient feels connected with others/family/visitors/staff [] Distress [] Loneliness/isolation [] Abandonment Spirituality of Patient [x] Person of Tiffanie [] Attends Druze of their Tiffanie [x] Believes in Prayer [] Reads Bible or Anabaptist materials [] There are Spiritual issues to be addressed [employer] Interventions [x] Prayer [x] Active listening [] Non-anxious presence [] Spiritual/emotional support [] Crisis/trauma care [] Spiritual counseling [] Bereavement support [] Provided bereavement packet [x] Provided Bible/devotional materials [] Provided toy/stuffed animal, coloring book to patient or family member [] Provided Communion [] Anointing/[place] [] Salvation [x] Completed spiritual assessment [] Other: Impact on Illness or Injury [] Angry [] Fearful [] Anxious [] Often cries [] Exhaustion [] Unable to work [] Unable to attend christianity [] Unable to walk/stand [] Unable to read [] Unable to drive [] Unable to eat/drink [] Unable to sleep [] Unable to be with family [] Patient intubated [] Other: Summary Time spent with patient 5 min
--- NOTE | 2024-07-07 09:56 | PM.PN ---
Subjective Subjective: Patient had a Myocardial perfusion imaging today. She was found to have no evidence of ischemia based on the perfusion scan. Medications: Medication Review Details: Current Medications Acetaminophen (Acetaminophen 325 Mg Tablet) 650 mg PO Q6H PRN PRN Reason: Mild/Mod Pain Or Temp >/= 101 Last Admin: 07/06/24 21:13 Dose: 650 mg Aspirin (Aspirin 81 Mg Chew Tablet) 81 mg PO DAILY [facility] Last Admin: 07/06/24 09:30 Dose: 81 mg Atropine Sulfate (Atropine 0.1 Mg/Ml Syr 10 Ml) 0.5 mg IVP PRN PRN PRN Reason: heart rate Stop: 07/08/24 06:21 Last Admin: 07/07/24 08:05 Dose: 0.5 mg Enoxaparin Sodium (Enoxaparin 40 Mg/0.4 Ml Syringe) 40 mg SUBCUT Q12H [facility] Last Admin: 07/07/24 00:47 Dose: 40 mg Esmolol HCl (Esmolol 100 Mg/10 Ml Sdv) 5 mg IV PRN PRN PRN Reason: heart rate Stop: 07/08/24 06:22 Famotidine (Famotidine 20 Mg/2 Ml Inj) 20 mg IVP Q12H [facility] Last Admin: 07/06/24 22:33 Dose: 20 mg Guaifenesin (Guaifenesin 600 Mg Tablet) 600 mg PO BID [facility] Last Admin: 07/06/24 17:22 Dose: Not Given Guaifenesin (Guaifenesin 100 Mg/5 Ml Udc 10 Ml) 200 mg PO Q4H PRN PRN Reason: COUGH AND CONGESTION Last Admin: 07/07/24 06:37 Dose: 200 mg Sodium Chloride (Sodium Chloride 0.9%) 1,000 mls @ 100 mls/hr IV .Q10H [facility] Last Admin: 07/06/24 22:33 Dose: 100 mls/hr Dobutamine HCl 200 mg/ Sodium (Chloride) 50 mls @ 0 mls/hr IV .Q0M PRN; Protocol PRN Reason: per protocol Last Titration: 07/07/24 08:07 Dose: Infused Ipratropium [place] (Ipratropium 0.5 Mg/2.5 Ml Neb) 0.5 mg INHALATION Q6H.RESP [facility] Last Admin: 07/07/24 09:54 Dose: Not Given Lanolin (Lanolin Oint 7 Gm) 1 applic TOPICAL PRN PRN PRN Reason: DRYNESS Last Admin: 07/05/24 10:55 Dose: 1 applic Levalbuterol HCl (Levalbuterol 1.25 Mg/3 Ml Neb) 1.25 mg INHALATION Q6H.RESP PEG Last Admin: 07/07/24 09:53 Dose: 1.25 mg Methylprednisolone Sodium Succinate (Methylprednisolone Sod Succ 40 Mg/Ml Inj) 40 mg IVP Q12H [facility] Last Admin: 07/06/24 22:33 Dose: 40 mg Metoprolol Tartrate (Metoprolol Tartrate 25 Mg Tablet) 12.5 mg PO BID@0900,2100 [facility] Last Admin: 07/07/24 06:18 Dose: Not Given Metoprolol Tartrate (Metoprolol Tartrate 1 Mg/1 Ml Sdv 5 Ml) 5 mg IV PRN PRN PRN Reason: heart rate Last Admin: 07/07/24 08:08 Dose: 5 mg Nitroglycerin (Nitroglycerin 0.4 Mg Sublingual Tablet) 0.4 mg SUBLINGUAL Q5M PRN PRN Reason: CHEST PAIN Stop: 07/08/24 06:21 Ondansetron HCl (Ondansetron 2 Mg/Ml Sdv 2 Ml) 4 mg IVP Q2M PRN PRN Reason: NAUSEA Oxycodone/Acetaminophen (Oxycodone-Apap 10-325 Mg Tablet) 1 tab PO Q4H PRN PRN Reason: SEVERE PAIN Vitals/I&O/Wt Last Vital Signs Temp 98.0 F 07/07/24 04:00 Pulse 84 07/07/24 09:52 Resp 16 07/07/24 09:52 BP 144/57 07/07/24 08:31 Pulse Ox 94 07/07/24 09:52 O2 Del Method Nasal Cannula 07/07/24 09:52 O2 Flow Rate 2 07/07/24 09:52 07/06/24 07/07/24 07/07/24 22:59 06:59 14:59 Intake Total 1171.667 / 1291.667 1.583 / 1.583 Output Total 250 / 250 950 / 1200 Balance 921.667 / 1041.667 -950 / 91.667 1.583 / 1.583 Weight last 48 hrs Weight 93 lb 0.561 oz Weight 86 lb 4 oz Weight 86 lb 4 oz Physical Exam Narrative: GENERAL: The patient is alert and oriented times three. Not in any acute distress. Slightly tachypneic. HEENT: No significant pallor, icterus or lymphadenopathy.Oral cavity: There are no mucous membrane lesions. NECK: Trachea appears to be central. No masses noted. No JVD or thyromegaly appreciated. RESPIRATORY: Chest is symmetrical. No intercostals muscle retraction or any accessory muscle activation. There is no chest wall tenderness. Breath sounds are heard bilaterally. Occasional coarse crackles. Diminished intensity of breath sounds bilaterally. BREASTS: Deferred. HEART: The heart sounds are normal. No S3 or S4. No significant murmurs. No pericardial rub ABDOMEN: No vessel pulsations or distention. No tenderness. No organomegaly appreciated. Bowel sounds are normally heard. : Deferred. RECTAL: Deferred. LYMPHATIC: No lymphadenopathy noted in the neck. EXTREMITIES: No edema or cyanosis. No clubbing. MUSCULOSKELETAL: No acute joint deformities or swelling SKIN: There are no significant rashes or ecchymosis NEUROPSYCHIATRIC: The patient is alert and oriented x3. Appears to be in a good mood. No tremors or rigidity noted. Data 07/07/24 06:35 07/07/24 06:35 Other Labs: Laboratory Last Values WBC 16.37 10^3/uL (3.29-11.43) H 07/07/24 06:35 RBC 4.44 10^6/uL (3.85-5.65) 07/07/24 06:35 Hgb 12.90 g/dL (11.27-16.99) 07/07/24 06:35 Hct 39.4 % (36-47) 07/07/24 06:35 MCV 88.7 fl (85-98) 07/07/24 06:35 MCH 29.1 pg (27-33) 07/07/24 06:35 MCHC 32.7 g/dL (30-55) 07/07/24 06:35 RDW 12.5 % (12.1-15.1) 07/07/24 06:35 Plt Count 322 10^3/cmm (157-399) 07/07/24 06:35 MPV 9.2 fL (7.4-10.4) 07/07/24 06:35 Neut % (Auto) 90.8 % 07/07/24 06:35 Lymph % (Auto) 4.8 % 07/07/24 06:35 [place] % (Auto) 3.8 % 07/07/24 06:35 Eos % (Auto) 0.0 % 07/07/24 06:35 Baso % (Auto) 0.1 % 07/07/24 06:35 Neut # (Auto) 14.86 10^3/uL (1.8-7.7) H 07/07/24 06:35 Lymph # (Auto) 0.8 10^3/uL (0.8-4.8) 07/07/24 06:35 [place] # (Auto) 0.6 10^3/uL (0.2-0.9) 07/07/24 06:35 Eos # (Auto) 0.0 10^3/uL (0.0-0.8) 07/07/24 06:35 Baso # (Auto) 0.0 10^3/uL (0.0-0.1) 07/07/24 06:35 Nucleated RBC % (auto) 0 % 07/07/24 06:35 Nucleated RBCs # 0.0 /100WBC 07/07/24 06:35 Specimen Type Arterial 07/05/24 06:32 Sample Site Brachial, right 07/05/24 06:32 ABG pH 7.43 (7.35-7.45) 07/05/24 06:32 ABG pCO2 42.3 mmHg (35-45) 07/05/24 06:32 ABG pO2 59.6 mmHg (80.0-100.0) L 07/05/24 06:32 ABG PO2/FiO2 Ratio 283 07/05/24 06:32 ABG HCO3 27.8 mmol/L (22-26) H 07/05/24 06:32 ABG O2 Saturation 92.6 07/05/24 06:32 ABG Base Excess 3.0 mmol/L (-2.0-2.0) H 07/05/24 06:32 Jeison Test N/a 07/05/24 06:32 A-a O2 Gradient 5.0 mmHg (5-10) 07/05/24 06:32 Hematocrit 47.7 % (37-47) H 07/05/24 06:32 Hgb O2 Saturation 89.6 % (95-100) L 07/05/24 06:32 Carboxyhemoglobin 2.3 %THgb (0.4-20.1) 07/05/24 06:32 Methemoglobin 1.0 % (0.4-1.5) 07/05/24 06:32 Total Hemoglobin 15.6 g/dL (12-16) 07/05/24 06:32 Sodium 139.0 mmol/L (131-143) 07/05/24 06:32 Potassium 3.7 mmol/L (3.5-5.0) 07/05/24 06:32 Glucose 115.0 mg/dL (70-115) 07/05/24 06:32 Ionized Calcium 1.2 mmol/L (1.1-1.4) 07/05/24 06:32 O2 Delivery Device Room air 07/05/24 06:32 FiO2 21.0 % 07/05/24 06:32 Road Commissioner ID Ed 07/05/24 06:32 Sodium 137 mmol/L (136-145) 07/07/24 06:35 Potassium 4.1 mmol/L (3.5-5.1) 07/07/24 06:35 Chloride 104 mmol/L (98-107) 07/07/24 06:35 Carbon Dioxide 27 mmol/L (22-29) 07/07/24 06:35 Anion Gap 10.1 (5-19) 07/07/24 06:35 BUN 6 mg/dL (8-23) L 07/07/24 06:35 Creatinine 0.5 mg/dL (0.5-0.9) 07/07/24 06:35 GFR Calculation 123.1 mL/min (90-130) 07/07/24 06:35 Glucose 134 mg/dL (65-115) H 07/07/24 06:35 Calculated Osmolality 284 mOsm/kg (285-295) L 07/07/24 06:35 Calcium 8.2 mg/dL (8.5-10.5) L 07/07/24 06:35 Magnesium 2.0 mg/dL (1.7-2.3) 07/07/24 06:35 Total Bilirubin 0.5 mg/dL (0.15-1.2) 07/05/24 06:26 AST 16 U/L (0-32) 07/05/24 06:26 ALT 12 U/L (0-33) 07/05/24 06:26 Alkaline Phosphatase 69 U/L (35-105) 07/05/24 06:26 Troponin T Baseline 12 ng/L (0-10) H 07/05/24 06:26 Troponin T 120 Minute 27.95 ng/L (0-10) H 07/05/24 08:37 Delta Troponin T 15.95 ABS# (0-10) H* 07/05/24 08:37 Troponin T Hi Sens 6Hr 20.95 ng/L (0-10) H 07/05/24 12:26 Troponin T Hi Sens 6Hr Delta 8.95 ng/L (0-12) 07/05/24 12:26 C-Reactive Protein 3.0 mg/L (0.0-4.9) 07/05/24 06:26 NT-Pro-B Natriuret Pep 141 pg/mL (0-125) H 07/05/24 08:37 Total Protein 7.5 g/dL (6.6-8.7) 07/05/24 06:26 Albumin 4.3 g/dL (3.5-5.2) 07/05/24 06:26 Globulin 3.2 g/dL (1.3-4.6) 07/05/24 06:26 Triglycerides 81 mg/dL (0-150) 07/06/24 04:15 Cholesterol 226 mg/dL (0-200) H 07/06/24 04:15 LDL Cholesterol, Calc 165 mg/dL (50-129) H 07/06/24 04:15 HDL Cholesterol 45 mg/dL (60-100) L 07/06/24 04:15 LDL/HDL Ratio 3.67 RATIO (0.00-3.22) H 07/06/24 04:15 Cholesterol/HDL Ratio 5.02 mg/dL (0.0-4.40) H 07/06/24 04:15 Coronavirus (PCR) Negative (Negative) 07/05/24 06:48 Influenza A (PCR) Negative (Negative) 07/05/24 06:48 Influenza Type B (PCR) Negative (Negative) 07/05/24 06:48 RSV (PCR) Negative (Negative) 10/05/24 06:48 A&P Assessment and plan (1) Elevated troponin: The Perfusion scan results were discussed with the patient in detail. In the absence of any significant ischemia, based on the perfusion scan, it may be appropriate to continue the risk modifying measures. She may not require any further intervention at this point (2) COPD exacerbation: Possibly related to possible infection. Probably need to rule out any recurrence of cryptococcosis/other fungal infections. Management as per Dr. Yanez. (3) Coronary atherosclerosis due to calcified coronary lesion: Patient was found to have coronary calcification by the CT of the chest. Her heavy smoking abuse and family history are major contributing factor's. We should be focusing on optimizing the risk modifying measures. 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 Need to rule out any recurrence Plan May continue on the risk modifying measures. If she continues to remain stable, may be discharged home from a cardiac standpoint. Attestations Medical Necessity Statement*: Deferred to the primary Coding Level of Care Code 84078 Diagnoses Elevated troponin R79.89 COPD exacerbation J44.1 Coronary atherosclerosis due to calcified coronary lesion I25.10; I25.84 Pulmonary cryptococcosis B45.0
[2024-07-07] MEDS: famotidine 20 mg/2 mL INJ IVP (11:19)
[2024-07-07] MEDS: guaiFENesin 600 mg Tablet PO (11:19)
[2024-07-07] MEDS: aspirin 81 mg Chew Tablet PO (11:19)
[2024-07-07] MEDS: methylPREDNISolone sod succ 40 mg/mL INJ IVP (11:20)
--- NOTE | 2024-07-07 12:50 | P.DS_ITS ---
Discharge Providers Date of Admission: 07/05/24 09:14 Date of Discharge: July 07, 2024 Attending Provider at Admission: Yanely Yanez MD Attending Provider at Discharge: Carmelita Murphy MD Primary Care Provider: Jai Stone Diagnoses at Discharge Discharge Diagnosis (1) Elevated troponin: Status: Acute (2) COPD exacerbation: Status: Acute (3) Coronary atherosclerosis due to calcified coronary lesion: Status: Acute (4) Pulmonary cryptococcosis: Status: Acute Reason for Visit Reason for Visit: SOB/ ANXIETY Hospital Course Hospital Course 68 year old female with past medical history of COPD/centrilobular emphysema, Cavitary spiculated lesion with bronchiectasis in the superior segment left lower lobe measuring 2.0 x 0.9 x 1.0 CM abutting the pleura with associated pleural thickening- - s/p left lower lobe superior segmentectomy and wedge resection of the apical posterior segment of the left upper lobe., active smoker, smokes 1.5 packs/day for 50 years, hyperlipidemia presented with worsening shortness of breath likely secondary to COPD exacerbation. Also had elevated trops, Dr. Coleman recommended dobutamine stress test which showed high 3 times daily ratio likely artifactual, I did speak with Dr. Coleman who recommended discharging patient because she is doing clinically much better. She has qualified for 2 L of oxygen at discharge. Patient is stating that she has a PET scan and upcoming August for evaluation of her lung mass. She was following up with Dr. Mckinnon before. She will follow-up for her PET scan with PCP. Physical Exam Narrative: Pleasant cooperative Currently on 2 L Hemodynamically stable at the bedside Nonfocal neuroexam Discharge Data Studies Completed and Pending Completed Studies During Hospitalization Category Date Time Status Sestamibi Stress Test Request Routine Exams 07/07/24 07:00 Draft XR chest 1V portable [id number] Stat Exams 07/05/24 06:30 Completed NM marie perf SPECT r/s* [id number] Routine Nuc Med 07/07/24 14:40 Completed US echo complete [CV. echo complete* [id number]] Stat Ultrasound 07/05/24 09:17 Completed Pending at discharge Category Date Time Status Sestamibi Stress Test Request Routine Exams 07/06/24 14:40 Stop Req Sestamibi Stress Test Request Routine Exams 07/06/24 14:40 Stop Req Basic Metabolic Panel AM LABS Lab 07/08/24 04:00 Ordered Complete Blood Count w/Auto AM LABS Lab 07/08/24 04:00 Ordered Magnesium AM LABS Lab 07/08/24 04:00 Ordered Radiology Impressions Chest X-Ray 07/05/24 06:30 IMPRESSION: Sequela of COPD and bronchitis. Laboratory Results WBC 16.37 10^3/uL (3.29-11.43) H 07/07/24 06:35 RBC 4.44 10^6/uL (3.85-5.65) 07/07/24 06:35 Hgb 12.90 g/dL (11.27-16.99) 07/07/24 06:35 Hct 39.4 % (36-47) 07/07/24 06:35 MCV 88.7 fl (85-98) 07/07/24 06:35 MCH 29.1 pg (27-33) 07/07/24 06:35 MCHC 32.7 g/dL (30-55) 07/07/24 06:35 RDW 12.5 % (12.1-15.1) 07/07/24 06:35 Plt Count 322 10^3/cmm (157-399) 07/07/24 06:35 MPV 9.2 fL (7.4-10.4) 07/07/24 06:35 Neut % (Auto) 90.8 % 07/07/24 06:35 Lymph % (Auto) 4.8 % 07/07/24 06:35 [place] % (Auto) 3.8 % 07/07/24 06:35 Eos % (Auto) 0.0 % 07/07/24 06:35 Baso % (Auto) 0.1 % 07/07/24 06:35 Neut # (Auto) 14.86 10^3/uL (1.8-7.7) H 07/07/24 06:35 Lymph # (Auto) 0.8 10^3/uL (0.8-4.8) 07/07/24 06:35 [place] # (Auto) 0.6 10^3/uL (0.2-0.9) 07/07/24 06:35 Eos # (Auto) 0.0 10^3/uL (0.0-0.8) 07/07/24 06:35 Baso # (Auto) 0.0 10^3/uL (0.0-0.1) 07/07/24 06:35 Nucleated RBC % (auto) 0 % 07/07/24 06:35 Nucleated RBCs # 0.0 /100WBC 07/07/24 06:35 Specimen Type Arterial 07/05/24 06:32 Sample Site Brachial, right 07/05/24 06:32 ABG pH 7.43 (7.35-7.45) 07/05/24 06:32 ABG pCO2 42.3 mmHg (35-45) 07/05/24 06:32 ABG pO2 59.6 mmHg (80.0-100.0) L 07/05/24 06:32 ABG PO2/FiO2 Ratio 283 07/05/24 06:32 ABG HCO3 27.8 mmol/L (22-26) H 07/05/24 06:32 ABG O2 Saturation 92.6 07/05/24 06:32 ABG Base Excess 3.0 mmol/L (-2.0-2.0) H 07/05/24 06:32 Jeison Test N/a 07/05/24 06:32 A-a O2 Gradient 5.0 mmHg (5-10) 07/05/24 06:32 Hematocrit 47.7 % (37-47) H 07/05/24 06:32 Hgb O2 Saturation 89.6 % (95-100) L 07/05/24 06:32 Carboxyhemoglobin 2.3 %THgb (0.4-20.1) 07/05/24 06:32 Methemoglobin 1.0 % (0.4-1.5) 07/05/24 06:32 Total Hemoglobin 15.6 g/dL (12-16) 07/05/24 06:32 Sodium 139.0 mmol/L (131-143) 07/05/24 06:32 Potassium 3.7 mmol/L (3.5-5.0) 07/05/24 06:32 Glucose 115.0 mg/dL (70-115) 07/05/24 06:32 Ionized Calcium 1.2 mmol/L (1.1-1.4) 07/05/24 06:32 O2 Delivery Device Room air 07/05/24 06:32 FiO2 21.0 % 07/05/24 06:32 Broadcast Producer ID Ed 07/05/24 06:32 Sodium 137 mmol/L (136-145) 07/07/24 06:35 Potassium 4.1 mmol/L (3.5-5.1) 07/07/24 06:35 Chloride 104 mmol/L (98-107) 07/07/24 06:35 Carbon Dioxide 27 mmol/L (22-29) 07/07/24 06:35 Anion Gap 10.1 (5-19) 07/07/24 06:35 BUN 6 mg/dL (8-23) L 07/07/24 06:35 Creatinine 0.5 mg/dL (0.5-0.9) 07/07/24 06:35 GFR Calculation 123.1 mL/min (90-130) 07/07/24 06:35 Glucose 134 mg/dL (65-115) H 07/07/24 06:35 Calculated Osmolality 284 mOsm/kg (285-295) L 07/07/24 06:35 Calcium 8.2 mg/dL (8.5-10.5) L 07/07/24 06:35 Magnesium 2.0 mg/dL (1.7-2.3) 07/07/24 06:35 Total Bilirubin 0.5 mg/dL (0.15-1.2) 07/05/24 06:26 AST 16 U/L (0-32) 07/05/24 06:26 ALT 12 U/L (0-33) 07/05/24 06:26 Alkaline Phosphatase 69 U/L (35-105) 07/05/24 06:26 Troponin T Baseline 12 ng/L (0-10) H 07/05/24 06:26 Troponin T 120 Minute 27.95 ng/L (0-10) H 07/05/24 08:37 Delta Troponin T 15.95 ABS# (0-10) H* 07/05/24 08:37 Troponin T Hi Sens 6Hr 20.95 ng/L (0-10) H 07/05/24 12:26 Troponin T Hi Sens 6Hr Delta 8.95 ng/L (0-12) 07/05/24 12:26 C-Reactive Protein 3.0 mg/L (0.0-4.9) 07/05/24 06:26 NT-Pro-B Natriuret Pep 141 pg/mL (0-125) H 07/05/24 08:37 Total Protein 7.5 g/dL (6.6-8.7) 07/05/24 06:26 Albumin 4.3 g/dL (3.5-5.2) 07/05/24 06:26 Globulin 3.2 g/dL (1.3-4.6) 07/05/24 06:26 Triglycerides 81 mg/dL (0-150) 07/06/24 04:15 Cholesterol 226 mg/dL (0-200) H 07/06/24 04:15 LDL Cholesterol, Calc 165 mg/dL (50-129) H 07/06/24 04:15 HDL Cholesterol 45 mg/dL (60-100) L 07/06/24 04:15 LDL/HDL Ratio 3.67 RATIO (0.00-3.22) H 07/06/24 04:15 Cholesterol/HDL Ratio 5.02 mg/dL (0.0-4.40) H 07/06/24 04:15 Coronavirus (PCR) Negative (Negative) 07/05/24 06:48 Influenza A (PCR) Negative (Negative) 07/05/24 06:48 Influenza Type B (PCR) Negative (Negative) 07/05/24 06:48 RSV (PCR) Negative (Negative) 07/05/24 06:48 Vitals Last Vital Signs Temp 97.6 F 07/07/24 12:00 Pulse 75 07/07/24 12:00 Resp 24 H 07/07/24 12:00 BP 126/67 07/07/24 12:00 Pulse Ox 93 07/07/24 12:00 O2 Del Method Nasal Cannula 07/07/24 12:00 O2 Flow Rate 2 07/07/24 12:00 Discharge Plan Discharge Patient Disposition: Home Condition: Stable Prescriptions: New diltiazem HCl [Cardizem LA] 120 mg tablet extended release 24 hr 120 mg PO QAM Qty: 30 2RF Continued cetirizine [Zyrtec] 10 mg tablet 10 mg PO DAILY PRN (Reason: Shortness Of Breath) Trelegy Ellipta 100-62.5-25 mcg blister with device 1 inh inhalation DAILY Qty: 180 6RF albuterol sulfate 90 mcg/actuation HFA aerosol inhaler 2 puff inhalation Q6H PRN (Reason: shortness of breath or wheezing) Qty: 8.5 0RF albuterol sulfate 2.5 mg /3 mL (0.083 %) solution for nebulization 2.5 mg inhalation Q6H PRN (Reason: shortness of breath or wheezing) Qty: 180 6RF gabapentin 100 mg capsule 100 mg PO BEDTIME fluticasone propionate 50 mcg/actuation spray,suspension 2 spray INTRANASAL BID Discharge Orders: Discharge Order (Routine); Ordered 07/07/24 Ordered By: Carmelita Murphy Other Ambulatory Orders: DME: Oxygen (Order) Location: None Selected Ordered By: Carmelita Murphy Referrals: Derek [Outside] Jai Stone [Primary Care Provider] - 3 weeks Discharge Diet: Regular Discharge Activity: Increase activity as tolerated Patient Instructions: Opioid Safety Discharge Attestations Time Spent in Discharge Care*: greater than 30 min Status at Discharge: Cognitive status at discharge: cognitively intact , Behavioral status at discharge: cooperative , Quality Metrics Clinical Quality Measures [ No reported AMI, CVA or VTE this stay] Coding Level of Care Code Acute Code for Chg Fwd Diagnoses Elevated troponin R79.89 COPD exacerbation J44.1 Coronary atherosclerosis due to calcified coronary lesion I25.10; I25.84 Pulmonary cryptococcosis B45.0
[2024-07-07] MEDS: ipratropium 0.5 mg/2.5 mL Neb INHALATION (13:39)
--- NOTE | 2024-07-07 14:40 | NMCV_ITS ---
NM marie perf SPECT r/s* [id number] Lara Davenport Age: 68 Gender: F : 1955 Exam Date: 07/07/2024 07:06 Ordering Phys: Yanely Yanez MD Technologist: LOPEZ Gaitan Exam Location: [facility] Indications: cp STRESS TEST Please see separate stress test report in [facility] for full findings IMAGE PROTOCOL Rest/Stress 1 Dobutamine Day Radiopharmaceutical Dose (mCi) Administration Site Administered by Rest: Tc-99m 11 IV Marge Carpenter, DICE TABLE OPERATOR Sestamibi Stress:Tc-99m 32.8 IV Marge Carpenter, DICE TABLE OPERATOR Sestamibi Rest: 07-Jul-2024 60 Discovery 630 Stress: 07-Jul-2024 15 Discovery 630 Radiopharmaceutical was injected at 92 % maximum heart rate. Supine position only as patient was unable to lay prone. SPECT RESULTS Technical Quality: Good Raw Data Analysis: Normal Image Corrections: No attenuation or motion correction applied Summed Stress Score: 0 Summed Rest Score: 0 Summed Difference Score: 0 PERFUSION FINDINGS Fairly uniform myocardial tracer uptake with no significant perfusion abnormalities. FUNCTIONAL RESULTS (calculated via Gated SPECT) Stress Image LV EF (%): 83 Stress EDV (mL):42 TID: 1.82 Stress ESV (mL):7 FUNCTIONAL FINDINGS: Segmental wall motion analysis revealing no gross wall motion abnormalities IMPRESSIONS 1. Myocardial perfusion imaging revealing uniform myocardial tracer uptake with no significant Perfusion normalities. 2. Normal LV ejection fraction of 83% 3. LV wall motion analysis revealing no gross wall motion abnormalities. 4. Normal LV volume. Elevated transient ischemic dilatation ratio may suggest endocardial ischemia . But in the absence of any other abnormal objective findings, most likely this is artifactual Dr Lio Coleman MD [facility] (Electronically Signed) Final Date: 07 July 2024 12:30 S
--- NOTE | 2024-07-07 16:01 | PC.NURSE ---
home oxygen has been delivered.discharge instructions given and explained.pt and spouse verb understanding of instructions.discharged via w/c to exit at this time.spouse to drive pt home
== END 2024-07-07 16:03 | disposition home or self-care (01) | DRG 191 ==
LOC: ER 09:11 → CSU 09:36
PROVIDERS: Internal Medicine Cardiovascular Disease; Admitting Provider Internal Medicine; Emergency Provider Family Medicine; PCP Family Medicine; Visit Provider Internal Medicine
DX: J44.1 Chronic obstructive pulmonary disease with (acute) exacerbation (principal); R64 Cachexia; Z68.1 Body mass index [BMI] 19.9 or less, adult; J44.0 Chronic obstructive pulmonary disease with (acute) lower respiratory infection; J20.9 Acute bronchitis, unspecified; J47.9 Bronchiectasis, uncomplicated; I25.10 Atherosclerotic heart disease of native coronary artery without angina pectoris; R79.89 Other specified abnormal findings of blood chemistry; J43.2 Centrilobular emphysema; F17.210 Nicotine dependence, cigarettes, uncomplicated; R91.8 Other nonspecific abnormal finding of lung field
CPT/HCPCS: 0241U; 36415; 36600; 71045; 78452; 80048; 80051; 80053; 80061; 82330; 82805; 83735; 83880; 84484; 85025; 86140; 93005; 93017; 93306; 94640; 94664; 94760; 96365; 96372; 96375; 96376; 97161; 99285; A9500; J0461; J1250; J1644; J1650; J2060; J2919; J3490; J7030; J7050; J7614; J7644

== ENCOUNTER 2024-09-02 11:43 | Outpatient (CLI) | payer MEDICARE, SELFPAY ==
--- NOTE | 2024-09-02 11:40 | MM_ITS ---
WS: [id number] BILATERAL 3D TOMOSYNTHESIS DIGITAL SCREENING MAMMOGRAPHY WITH CAD CLINICAL INFORMATION: SCREENING HISTORY: Screening mammogram. No current complaints. COMPARISON: 2022 TECHNIQUE: Bilateral CC and MLO views. FINDINGS: The breasts are composed of heterogeneous fibroglandular density tissue, which can limit the detectio n of small underlying mass lesions. No suspicious mass, asymmetry, calcifications, or architectural d istortion. No evidence of malignancy. Incidental punctate and lucent centered calcifications. MM/MM [facility] tomosynthesis [id number] IMPRESSION: DENSITY: The breasts are heterogeneously dense, which may obscure small masses. BI-RADS: 2 - Benign FOLLOW UP: 1 Year Follow-up Recommend return to annual screening mammography.
== END 2024-09-02 11:44 | disposition home or self-care (01) ==
LOC: MOBLMAM 11:44
PROVIDERS: PCP Family Medicine; Visit Provider Family Medicine
DX: Z12.31 Encounter for screening mammogram for malignant neoplasm of breast (principal); R92.333 Mammographic heterogeneous density, bilateral breasts; R92.1 Mammographic calcification found on diagnostic imaging of breast
CPT/HCPCS: 77063; 77067

== ENCOUNTER 2024-09-26 08:09 | Outpatient (CLI) | payer MEDICARE, SELFPAY ==
--- NOTE | 2024-09-26 | PETR_ITS ---
PROCEDURE INFORMATION: Exam: PET/CT Skull Base to Mid-thigh Exam date and time: 09/26/2024 9:02 AM Age: 69 years old Clinical indication: Abnormal findings; Lesion of lung; Additional info: Abnormal imaging LABS AND CLINICAL REPORTS: Glucose: 113 mg/dl Treatment strategy for malignancy (PET staging): Initial Staging (PI) TECHNIQUE: Imaging protocol: Following at least four-hour fasting and following the injection of radiopharmaceutical, low dose CT images were obtained. Then, PET images were obtained. Attenuation corrected images were constructed using the CT scan. Fused images of PET and CT were reviewed. The standardized uptake values (SUV) reported below are maximum values within a region of interest, expressed in gm/ml. Exam includes orbital meatal line to mid-thigh. Radiopharmaceutical: 10.53 mCi F-18 FDG (Fluorodeoxyglucose), IV. Injection site: right ac COMPARISON: 1. PT PET skull to thigh INIT [id number] 12/02/2022 10:[address] chest wo con [id number] 09/17/2023 1:55 PM FINDINGS: Brain: Visualized brain has normal physiologic uptake. Oral cavity: Asymmetric focal FDG uptake at the right inferior oral cavity showing SUV max 8.4 on axial image 281 with subtle suggestion of underlying 9 mm hypodensity just anterosuperior to the hyoid. Pharynx: No abnormal uptake. Larynx: No abnormal uptake. Lungs, pleura and trachea: No abnormal uptake. Diffuse emphysematous change. Stable posterior left upper lung scarring. No consolidation or mass. Resolution of previous right upper lobe nodule. Stable non FDG avid 3 mm right basilar nodule on axial image 188. Heart: Normal physiologic uptake. Stable small pericardial effusion. Coronary arteries: [id number] coronary artery calcification. Mediastinal space: No abnormal uptake. Liver: No abnormal uptake. 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 Photopenic hepatic cysts. Gallbladder and biliary ducts: No abnormal uptake. Cholelithiasis. Pancreas: No abnormal uptake. Spleen: No abnormal uptake. Adrenal glands: No abnormal uptake. Kidneys and ureters: Normal physiologic uptake. Stomach and bowel: Persistent focal FDG uptake at the rectosigmoid colon without discrete underlying CT abnormality shows SUV max 24.6 on axial image 107. Vasculature: No abnormal uptake. Moderate systemic atherosclerotic calcification without aortic aneurysm. Lymph nodes: No abnormal uptake. No lymphadenopathy in the head, neck, chest, abdomen, pelvis, and extremities. Skeleton: No abnormal uptake in the visualized axial and appendicular skeleton. Soft tissues: Linear FDG uptake at bilateral neck, shoulder, and upper extremity musculature as well as right posterior paraspinal musculature without underlying CT abnormality likely represents physiologic activation and/or strain. METRICS: Mediastinal blood pool: SUV mean 1.3 Liver uptake: SUV mean 1.7 PET/PET skull to thigh INIT [id number] IMPRESSION: 1. Resolved right upper lobe nodule. 2. Stable non FDG avid 3 mm right basilar pulmonary nodule. 3. Focal avid FDG uptake at rectosigmoid colon concerning for malignancy. Correlate with colonoscopy. 4. Focal FDG uptake at the right inferior oral cavity with subtle underlying 9 mm hypodensity just anterosuperior to the hyoid. This could be inflammatory or neoplastic. Recommend further evaluation with contrast-enhanced CT or MRI. 5. Stable small pericardial effusion. 6. Additional chronic and incidental findings as above.
== END 2024-09-26 08:10 | disposition home or self-care (01) ==
PROVIDERS: PCP Family Medicine; Visit Provider Family Medicine
DX: R91.1 Solitary pulmonary nodule (principal); R93.3 Abnormal findings on diagnostic imaging of other parts of digestive tract; R93.7 Abnormal findings on diagnostic imaging of other parts of musculoskeletal system; I31.39 Other pericardial effusion (noninflammatory); J43.9 Emphysema, unspecified; I25.84 Coronary atherosclerosis due to calcified coronary lesion; R93.2 Abnormal findings on diagnostic imaging of liver and biliary tract; Q44.6 Cystic disease of liver; K80.20 Calculus of gallbladder without cholecystitis without obstruction; I70.0 Atherosclerosis of aorta
CPT/HCPCS: 78815; A9552

== ENCOUNTER → 2024-10-09 09:58 | Outpatient (BNVA) | payer MEDICARE, SELFPAY | PROVIDERS: PCP Family Medicine; Visit Provider Student in an Organized Health Care Education/Training Program | DX: Z12.11 Encounter for screening for malignant neoplasm of colon (principal); R94.8 Abnormal results of function studies of other organs and systems | CPT/HCPCS: 99203 ==

== ENCOUNTER 2025-01-05 12:55 | Outpatient (CLI) | payer MEDICARE, SELFPAY ==
--- NOTE | 2025-01-05 13:03 | MR_ITS ---
WS: [id number] MRI FACE AND NECK WITH AND WITHOUT CONTRAST. COMPARISON: PET/CT 09/26/2024, FDG uptake oral cavity. Multiplanar, multisequence imaging is performed with and without contrast. MultiHance 9 mL IV. Symmetric appearance of the soft tissues involving the tongue base and larynx. Normal appearance of the oropharynx and nasopharynx. FTG positive area at the RIGHT tongue base is not identified by MRI. There is no significant area of abnormal enhancement. No cervical chain adenopathy. Visualized skull base and pituitary gland are negative. No signal abnormality within the cervical cord. 2 mm anterolisthesis of C3. No enhancing oropharyngeal mass identified. MR/MR orbit face neck wo/w* [id number] IMPRESSION: 1. No abnormality noted along the inferior RIGHT oral cavity in the area of th e PET/CT avid nodule. This did not appear to be an artifact by PET/CT imaging. Consider neck CT with IV contrast also. 2. No cervical chain adenopathy.
[2025-01-05] MEDS: gadobenate dimeglumine 20 mL vial 9 ML IV (13:41)
== END 2025-01-05 12:56 | disposition home or self-care (01) ==
PROVIDERS: PCP Family Medicine; Visit Provider Specialist
DX: R22.1 Localized swelling, mass and lump, neck (principal); M43.12 Spondylolisthesis, cervical region
CPT/HCPCS: 70543; A9577